=== PATIENT | female | born 1975 | race Caucasian/White ===

== ENCOUNTER → 2021-08-22 16:51 | Outpatient (BNVA) | payer MEDICAID, SELFPAY | PROVIDERS: Visit Provider Nurse Practitioner Family | DX: M25.511 Pain in right shoulder (principal) | CPT/HCPCS: 73030 ==

== ENCOUNTER 2021-09-25 15:19 | Outpatient (CLI) | payer MEDICAID, SELFPAY ==
--- NOTE | 2021-09-25 15:59 | MR_ITS ---
WS: [id number] MRI RIGHT SHOULDER HISTORY: ROTATOR CUFF SYNDROME, SHOULDER PAIN RIGHT COMPARISON: Radiograph 08/22/2021 TECHNIQUE: Multiplanar sequences of the shoulder joint are submitted. Mild AC joint arthritis. Joint space narrowing with small osteophytes from the distal clavicle and ad jacent acromion. There is also mild soft tissue hypertrophy. No subacromial or subdeltoid bursal flui d. There is very mild encroachment upon the supraspinatus muscle at the myotendinous insertion site. No os acromion. Biceps tendon is in normal position. Small subchondral cysts at the humeral head. Small insertion site tear of the anterior supraspinatus tendon. There is a additional moderate tendin opathy in the distal supraspinatus tendon. No retraction. No additional rotator cuff tears. No muscle atrophy or edema. Small osteophyte from the undersurface of the acromion causing mild subacromial im pingement directly over the superior humeral head. There is a defect at the base of the anterior supe rior labrum adjacent to the biceps tendon insertion site. Consistent with a labral tear. Additional d egenerative changes in the inferior labrum but no tear. Small osteophytes narrowing the inferior jose elias ohumeral joint space. There is increased soft tissue signal adjacent to the distal subscapularis tendon with narrowing of t he coracohumeral interval. Subscapularis tendon is thickened and there is increased T2 signal suggest ing at least a partial tear and adjacent tendinopathy. MR/MR shoulder RT wo con* [id number] IMPRESSION: 1. Small insertion site tear anterior supraspinatus tendon with no retraction. Additional moderate tendinopathy in the supraspinatus tendon. 2. Mild AC joint arthritis with mild encroachment upon the myotendinous insert ion of the supraspinatus. 3. Mild subacromial impingement. 4. Focal tear anterior superior labrum adjacent to the attachment of the bicep s tendon. 5. Increased soft tissue in the coracohumeral interval with thickening of the subscapularis tendon. Increased T2 signal in the distal tendon. Suspicious for distal subscapularis insertion site tear with additional marked tendinopathy.
== END 2021-09-25 15:20 | disposition home or self-care (01) ==
LOC: RAD 15:21
PROVIDERS: Visit Provider Nurse Practitioner Family
DX: M75.100 Unspecified rotator cuff tear or rupture of unspecified shoulder, not specified as traumatic (principal); M25.511 Pain in right shoulder
CPT/HCPCS: 73221

== ENCOUNTER 2022-10-28 20:18 | Inpatient (IN) | payer MEDICAID, SELFPAY ==
[2022-10-28 20:21] VITALS: BP 110/76; PULSE 106; RESP 16; TEMP 36.6; O2SAT 97; BMI 23.9
--- NOTE | 2022-10-28 20:50 | W.ED.PSYCHS ---
HPI - Psych General: Chief Complaint: Psychiatric Symptoms Stated Complaint: si Time Seen by Provider: 10/28/22 20:36 Source: patient and family (Son) Limitations: no limitations History of Present Illness: This 46-year-old female was brought in by EMS for evaluation because she was found wandering on the streets with her dog. On further questioning, patient tells me that she lives in [place] and was on her way to [place], on foot, to see her family. She was walking with her dog. When asked about her car, she said her car was at home and she did not have money for gas. She states that she has no history of psychiatric illness and is not taking any medications at this time. She does not have suicidal or homicidal thoughts. She has a son who lives in [place] and her ex- lives in [place]. I obtained her son's phone number and him to get more information. Son tells me that patient has been erratic patient for the last month and a half. Patient calls son the antichrist and believes that son's soul has been possessed by the devil. She claims that her ex- is the Satan. Son notes that patient has stated in the past, multiple times that she (the patient) will kill him. She has also made suicidal statements. Son recounts how patient stole his phone, his wallet and his car. They argued all the time and patient would always make statements that were tangential and hard for son to comprehend. It became too much for her son to bear, so son moved out of the house about a week ago. Son believes that patient is a safety to herself. Son states that because patient has DWI, she has a restricted license and cannot drive. Associated symptoms: Reports delusions; Deny homicidal ideation or suicidal ideation Review of Systems Const: Denies: chills, body aches or change in appetite Eyes: Denies: change in vision or eye discharge ENMT: Denies: throat pain or dental pain Card: Denies: chest pain or lightheadedness GI: Denies: diarrhea : Denies: dysuria Musc: Denies: neck pain or back pain Neuro: Denies: headache(s) or weakness in extremities Psych: Denies: suicidal ideation or homicidal ideation Kennedy/Lymph: Denies: easy bruising All/Imm: Denies: urticaria, tongue swelling or facial swelling Physical Exam Const: COMMON NORMALS: no acute distress, patient oriented x3, no limitations and alert HENMT: COMMON NORMALS: normocephalic HEAD & SCALP: normocephalic Eye: COMMON NORMALS: EOMs intact bilaterally Neck/C-Spine: COMMON NORMALS: full ROM and supple Chest: COMMONS NORMALS: normal inspection of the chest Resp: COMMON NORMALS: normal respiratory effort, No retractions, No use of accessory muscles and clear to auscultation bilaterally AUSCULTATION: clear to auscultation bilaterally Cardio: COMMON NORMALS: regular rate, regular rhythm and No murmurs present (Cardio) RATE: regular rate RHYTHM: regular rhythm GI: COMMON NORMALS: Normal to inspection, nondistended, normoactive bowel sounds present and non-tender : COMMON NORMALS: Yes no CVA tenderness BLADDER/KIDNEY EXAM: Yes no CVA tenderness Back/Pelvis: COMMON NORMALS: no CVA tenderness and no thoracic nor lumbar tenderness Extremity: GENERAL: Yes normal exam except as noted Neuro: COMMON NORMALS: patient oriented x3 and no focal motor deficits SENSORIUM/ORIENTATION: Yes alert Psych: COMMON NORMALS: cooperative THOUGHT PROCESS: Circumstantial thought process present THOUGHT CONTENT: Yes delusions INSIGHT: questionable Course Vital Signs: Vital signs: Vital Signs Temperature 97.9 F 10/28/22 20:21 Pulse Rate 106 H 10/28/22 20:21 Respiratory Rate 16 10/28/22 20:21 Blood Pressure 110/76 10/28/22 20:21 Pulse Oximetry 97 10/28/22 20:21 Oxygen Delivery Me thod Room Air 10/28/22 20:21 MDM - Psych Medical Decision Making Medical decision making: Though patient denies being suicidal or homicidal, she appears to have irrational reasoning that can potentially put her in harm's way. Thinking that she can walk from [place] to [place] to see her parents sounds unreasonable. Making claims that her son's soul is processed by satan and that her son is the antichrist is quite unusual. Son says she has been acting this way for about a month and a half. I believe that she would benefit from inpatient psychiatric evaluation and treatment. Case discussed with Dr. Chen who accepted patient for admission. Lab Data 10/28/22 21:32 10/28/22 21:32 Laboratory Results WBC 7.7 10^3/uL (4.0-10.0) 10/28/22 21:32 RBC 5.21 10^6/uL (4.1-5.3) 10/28/22 21:32 Hgb 15.2 g/dL (11.5-15.3) 10/28/22 21:32 Hct 45.0 % (37.0-47.0) 10/28/22 21: MCV 86.4 fl (81-99) 10/28/22 21:32 MCH 29.2 pg (28.0-34.0) 10/28/22 21: MCHC 33.8 g/dL (30.0-36.0) 10/28/22 21: RDW 11.7 % (12.1-15.1) L 10/28/22 21: Plt Count 220 10^3/cmm (130-400) 10/28/22 21: MPV 10.7 fL (7.4-10.4) H 10/28/22 21:32 Neut % (Auto) 66.8 % 10/28/22 21:32 Lymph % (Auto) 23.2 % 10/28/22 21:32 Lagrange % (Auto) 9.1 % 10/28/22 21: Eos % (Auto) 0.3 % 10/28/22 21: Baso % (Auto) 0.3 % 10/28/22 21:32 Neut # (Auto) 5.18 10^3/uL (1.8-7.7) 10/28/22 21:32 Lymph # (Auto) 1.8 10^3/uL (0.8-4.8) 10/28/22 21:32 [place] # (Auto) 0.7 10^3/uL (0.2-0.9) 10/28/22 21:32 Eos # (Auto) 0.0 10^3/uL (0.0-0.8) 10/28/22 21:32 Baso # (Auto) 0.0 10^3/uL (0.0-0.1) 10/28/22 21:32 Nucleated RBC % (auto) 0 % 10/28/22 21:32 Nucleated RBCs # 0.0 /100WBC 10/28/22 21:32 Sodium 140 mmol/L (136-145) 10/28/22 21:32 Potassium 3.8 mmol/L (3.5-5.1) 10/28/22 21:32 Chloride 104 mmol/L (98-107) 10/28/22 21:32 Carbon Dioxide 24 mmol/L (22-29) 10/28/22 21:32 Anion Gap 15.8 (5-19) 10/28/22 21:32 BUN 13 mg/dL (6-20) 10/28/22 21:32 Creatinine 0.8 mg/dL (0.5-0.9) 10/28/22 21:32 GFR Calculation 77.9 mL/min (90-130) L 10/28/22 21:32 Glucose 84 mg/dL (65-115) 10/28/22 21:32 Calculated Osmolality 289 mOsm/kg (285-295) 10/28/22 21:32 Calcium 9.1 mg/dL (8.5-10.5) 10/28/22 21:32 Total Bilirubin 0.7 mg/dL (0.15-1.2) 10/28/22 21:32 AST 35 U/L (0-32) H 10/28/22 21:32 ALT 49 U/L (0-33) H 10/28/22 21:32 Alkaline Phosphatase 85 U/L (35-105) 10/28/22 21:32 Total Protein 7.6 g/dL (6.6-8.7) 10/28/22 21:32 Albumin 4.6 g/dL (3.5-5.2) 10/28/22 21:32 Globulin 3.0 g/dL (1.3-4.6) 10/28/22 21:32 TSH 0.78 uIU/mL (0.27-4.20) 10/28/22 21:32 Salicylates < 0.3 mg/dL (3-10) L 10/28/22 21:32 Acetaminophen < 5.0 ug/mL (10-30) L 10/28/22 21:32 EKG Data EKG 1: Interpretation: Sinus rhythm, rate of 68, normal axis, normal intervals, normal QRS, no STEMI. Discharge Plan Discharge Condition: Stable Coding Level of Care Code ED Manager Chemistry for Meli Davidson
--- NOTE | 2022-10-28 21:13 | ECG_ITS ---
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 Measurements Intervals [place] Rate: 68 P: 50 DC: 127 QRS: 55 QRSD: 87 T: 38 QT: 417 QTc: 444 Interpretive Statements SINUS RHYTHM No previous ECG available for comparison Electronically Signed On 10-28-2022 23:08:55 CDT by Juni Chris M.D. [id number]
[2022-10-28 21:39] LABS: Basophils % 0.3 %; Eosinophils % 0.3 %; Hemoglobin 15.2 g/dL (11.5-15.3); Lymphocytes # 1.8 10^3/uL (0.8-4.8); Lymphocytes % 23.2 %; Mean Corpuscular HGB Conc 33.8 g/dL (30.0-36.0); Mean Corpuscular Hemoglobin 29.2 pg (28.0-34.0); Mean Corpuscular Volume 86.4 fl (81-99); Mean Platelet Volume 10.7 fL (7.4-10.4); Monocytes # 0.7 10^3/uL (0.2-0.9); Monocytes % 9.1 %; Neutrophils # 5.18 10^3/uL (1.8-7.7); Neutrophils % 66.8 %; Nucleated Red Blood Cells % 0 %; Platelet Count 220 10^3/cmm (130-400); Red Blood Count 5.21 10^6/uL (4.1-5.3); Red Cell Distribution Width 11.7 % (12.1-15.1); White Blood Count 7.7 10^3/uL (4.0-10.0)
[2022-10-28 22:01] LABS: Alanine Aminotransferase 49 U/L (0-33); Albumin Level 4.6 g/dL (3.5-5.2); Alkaline Phosphatase 85 U/L (35-105); Anion Gap 15.8 (5-19); Aspartate Amino Transferase 35 U/L (0-32); Blood Urea Nitrogen 13 mg/dL (6-20); Calcium 9.1 mg/dL (8.5-10.5); Carbon Dioxide 24 mmol/L (22-29); Chloride 104 mmol/L (98-107); Creatinine Clr Calc Pharmacy 79.2398; Glomerular Filtration Rate 77.9 mL/min (90-130); Glucose 84 mg/dL (65-115); Osmolality Calculated 289 mOsm/kg (285-295); Potassium 3.8 mmol/L (3.5-5.1); Sodium 140 mmol/L (136-145); Thyroid Stimulating Hormone 0.78 uIU/mL (0.27-4.20); Total Bilirubin 0.7 mg/dL (0.15-1.2); Total Protein 7.6 g/dL (6.6-8.7)
[2022-10-28 22:26] LABS: Acetaminophen < 5.0 ug/mL (10-30); Salicylate < 0.3 mg/dL (3-10)
[2022-10-28 23:02] LABS: Amphetamines Screen Urine Negative (Negative); Barbiturates Screen Urine Negative (Negative); Benzodiazepines Screen Urine Negative (Negative); Cocaine Screen Urine Negative (Negative); Opiate Screen Urine Negative (Negative); PCP Screen Urine Negative (Negative); THC Screen Urine Positive (Negative)
[2022-10-28 23:14] LABS: Blood Urine 3+ (Negative); Glucose Urine UA Norm (Normal); Ketones Urine 2+ (Negative); Protein Urine Trace (Negative); Urine Appearance Hazy (CLEAR); Urine Color Yellow (Yellow); pH Urine 5 (5-7)
[2022-10-28 23:15] LABS: Add Urine Microscopic? YES; Bilirubin Urine Neg (Negative); Leukocyte Esterase Urine Negative (Negative); Nitrate Urine Negative (Negative); Urobilinogen Urine Norm (Negative)
[2022-10-28 23:17] LABS: Bacteria Urine 1+ /hpf; WBC Urine 0-4 /hpf (0-5)
[2022-10-28 23:18] LABS: Mucus Urine 2+ /hpf
[2022-10-28 23:20] LABS: RBC Urine 25-40 /hpf (0-2)
--- NOTE | 2022-10-28 23:42 | PC.NURSE ---
Pt served with Copy of 96 HH. Pt not receptive to involuntary hold. Pt stating that she is not on a hold and has no reason to be here . Security staying with pt, admission to locked NPU expedited.
[2022-10-28 23:53] VITALS: BP 127/85; PULSE 94; RESP 18; TEMP 36.7; O2SAT 98
--- NOTE | 2022-10-29 00:28 | PC.NURSE ---
Pt arrived from ER w/sitter, security, and RN at side. Pt is calm and cooperative, states I don't know why I'm here they called my son, and he told them to 96 me . Pt denies ever using any drugs or alcohol, although tested positive for marijuana. Pt feed sandwhich per her request, given water and milk.
[2022-10-29 00:35] LABS: Alcohol Level < 10 mg/dL (0-10)
[2022-10-29 06:00] VITALS: BP 120/80; PULSE 78; RESP 16; TEMP 36.7; O2SAT 97
[2022-10-29 14:00] VITALS: BP 123/75; PULSE 91; RESP 16; TEMP 36.4; O2SAT 98
--- NOTE | 2022-10-29 16:32 | W.PM.NPUH&PS ---
Providers/Chief Complaint Admitting Physician: Kaleb Chen MD Chief Complaint: si HPI NPU History of Present Illness Marialuisa José is a 46 year old female with no prior history of inpatient treatment who had presented to the emergency department via EMS after the patient had been found wandering the streets accompanied by her dog. Patient had reported that she was on her way to [place] by foot to see her family. The patient was involuntarily hospitalized after an affidavit completed by the patient's son had stated that the patient had been having thoughts and expressed a belief that the patient's son was possessed by the devil and after the patient's son had stated that the patient was going to kill her ex-. The patient was admitted to the neuropsychiatric unit for further treatment and evaluation. The patient reports that she has been having increased problems with her thoughts beginning approximately 4 weeks ago as she stated that she felt like something clicked in her head where she started feeling different. The patient had expressed that she is not depressed and does not have thoughts of hurting herself or anyone else. She states that she had been stressed by having her demented father move into her home and had expressed that she was unable to manage his care and that she had been extremely stressed. She had reported having had a feeling in her mind that her son may have been engaged in unholy acts towards her. She had acknowledged that she had often called her ex- Kiesha but stated that she was merely joking. She did state that she had been increasingly suspicious about others but states that she is feeling better and here. She had denied any auditory or visual hallucinations. She had reported having some problems with concentration and states that she had not been taking care of herself very well. When asked about why she had to walk her dog on the highway, the patient was unable to provide a reasonable answer. She did acknowledge that her son had moved outside of the house despite living there as he had also grown tired of the patient's behavior. She had denied any ideas of reference and did not endorse feeling unsafe while on the inpatient unit. The patient was positive for marijuana on urine testing in the emergency department. She had expressed that she had not used marijuana but states that she may have been exposed to it. Past psychiatric history: None reported Allergies: Penicillin, sulfa drugs Medical history: None Surgical history: History of right shoulder repair, history of tonsillectomy Current medications: None Drug and alcohol history: She reported a past history of alcohol use but states that she is not a routine drinker with no history of alcohol withdrawal symptoms. She denied any other drug use at this time. Family psychiatric history: Alcoholism in the father. history: None Social history: The patient lives in [place]. She had been 1 time before in the past. She states that she was born in [facility] and that she had lost her mother when she was only 11 years old. She states that she had been forced to live in a foster home as her father had not been able to take care of her. 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 She had reported no history of trauma. She reported having a recent deep URI for driving under the influence of alcohol. She states having only 1 son who currently lives in the house. Meds NPU Home Medications Medication Instructions Recorded Confirmed Last Taken Type No Known Home Medications 10/29/22 10/29/22 Unknown History Allergies Allergy/AdvReac Type Severity Reaction Status Date / Time Penicillins Allergy ALGY-Rash Verified 10/28/22 20:21 Sulfa (Sulfonamide Allergy ALGY-Rash Verified 10/28/22 20:21 Antibiotics) Mental Status Exam MSE Comments: Patient appears older than her stated age she was sitting in bed in no acute distress. Her gait was within normal limits. Her hygiene was poor. There was no evidence of any abnormal involuntary motor movements tics or tremors appreciated. There was some evidence of mild psychomotor retardation. Her speech speech was monotone and quality normal in volume but slightly diminished in rate. Her thought process was linear logical and goal-directed. Her thought content showed no evidence of active homicidal or suicidal ideation. There was some lingering paranoia although she attempted to minimize it she is still felt concerned about the devil somehow influencing her son. There did appear to be some overvalued ideas. Her registration was 3 out of 3 words and 2 out of 3 words were recalled after 5 minutes. She was alert and oriented to person place time and situation. Her attention span appeared fair. She did appear engaged during the interview. Her insight appeared poor her judgment was poor. Her impulse control appeared limited at this time. Vitals/I&O/Wt Last Vital Signs Temp 97.6 F 10/29/22 14:00 Pulse 91 10/29/22 14:00 Resp 16 10/29/22 14:00 BP 123/75 10/29/22 14:00 Pulse Ox 98 10/29/22 14:00 O2 Del Method Room Air 10/29/22 14:00 Weight last 48 hrs Weight 61.235 kg Data NPU 10/28/22 21:32 10/28/22 21:32 A&P Assessment and plan (1) Psychotic disorder: Plan Patient is a 46-year-old admitted with psychotic symptoms with no prior history but reporting increased stressors over past month with management of demented father. 1.? ? Engage? patient in individual ,milieu, and group therapy ?2. ? We will attempt to gather collateral information from previous providers, patient remains on 96 hour hold and refusing any medications at this time. ?3. ? TO-15 minute checks on the unit. ?4.? Recommend sober living treatment at the highest level of care to which the patient is willing to commit. Involuntary Hold Information 96 Hour Hold: 96 Hour Involuntary Admission: Yes 96 Hour Hold Ending Date: 11/02/22 96 Hour Hold Ending Time: 00:01 Attestations NPU Medical Necessity Statement*: Inpatient hospitalization is medically necessary and deemed to be the clinically appropriate intervention at this time. We will monitor initiate medications while making changes as indicated. She will be in the hospital for over 2 midnights. The patient's likely length of stay is 3 to 5 days. Coding Level of Care Code Acute Code for g Fwd Diagnoses Psychotic disorder F29
[2022-10-29 20:45] VITALS: BP 117/78; PULSE 89; RESP 16; TEMP 36.9; O2SAT 96
[2022-10-30 06:00] VITALS: BP 124/79; PULSE 85; RESP 20; TEMP 36.8; O2SAT 97
--- NOTE | 2022-10-30 12:01 | PC.NURSE ---
verbal instruction for patient to she is not allowed to gointo another patients room. pt did not respond.
[2022-10-30 13:35] VITALS: BP 119/81; PULSE 86; RESP 20; TEMP 36.4; O2SAT 98
[2022-10-30 15:24] VITALS: BP 119/81; PULSE 86; RESP 20; TEMP 36.4; O2SAT 98
--- NOTE | 2022-10-30 18:58 | P.NPUPN_ITS ---
Subjective NPU Subjective: Patient is a 46-year-old female admitted involuntarily for psychotic behavior with reports of delusions. The patient had reported that she was feeling better here and stated that she was simply waiting to go home. Staff notes patient appeared to have some unusual behavior where she apparently had gone into the wrong room and had stolen another person's objects and placed in her own room. She stated when asked about this that she knew what she was doing but did not elaborate. She had continued to be unable to explain her actions regarding the patient's admission and walking along a dangerous road with her dog. She had reported that it was due to stress from managing her father but stated that she was doing fine here. Mental Status Exam MSE Comments: Patient appears older than her stated age she was sitting in bed in no acute distress. She appeared superficial and vague regarding her current state of mind. Her gait was within normal limits. Her hygiene was poor. There was no evidence of any abnormal involuntary motor movements tics or tremors appreciated. There was some evidence of mild psychomotor retardation. Her speech was monotone and quality normal in volume but slightly diminished in rate. Her thought process was linear logical but superficial.. Her thought c ontent showed no evidence of active homicidal or suicidal ideation. There was some continued paranoia and a significant level of guardedness. There did appear to be some overvalued ideas. Recent and remote memory appeared grossly intact. She was alert and oriented to person place time and situation. Her attention span appeared fair. Her insight appeared poor her judgment was poor. Her impulse control appeared limited at this time. Vitals/I&O/Wt Last Vital Signs Temp 97.5 F L 10/30/22 15:24 Pulse 86 10/30/22 15:24 Resp 20 H 10/30/22 15:24 BP 119/81 10/30/22 15:24 Pulse Ox 98 10/30/22 15:24 O2 Del Method Room Air 10/30/22 13:35 Weight last 48 hrs Weight 61.235 kg Data NPU 10/28/22 21:32 10/28/22 21:32 A&P Assessment and plan (1) Psychotic disorder: Plan Patient is a 46-year-old admitted with psychotic symptoms with no prior history but reporting increased stressors over past month with management of demented father. 1.? ? Engage? patient in individual ,milieu, and group therapy ?2. ? We will attempt to gather collateral information from previous providers, patient remains on 96 hour hold and refusing any medications at this time. She may require forced medications as she appears psychotic at this time. ?3. ? TO-15 minute checks on the unit. ?4.? Recommend sober living treatment at the highest level of care to which the patient is willing to commit. Involuntary Hold Information 96 Hour Hold: 96 Hour Involuntary Admission: Yes 96 Hour Hold Ending Date: 11/02/22 96 Hour Hold Ending Time: 00:01 Attestations NPU Medical Necessity Statement*: Inpatient hospitalization is medically necessary and deemed to be the clinically appropriate intervention at this time. We will monitor initiate medications while making changes as indicated. The patient's likely length of stay is 3 to 5 days. Coding Level of Care Code Acute Code for [facility] Fwd Diagnoses Psychotic disorder F29
[2022-10-31 06:00] VITALS: BP 107/60; PULSE 69; RESP 16; TEMP 36.8; O2SAT 98
[2022-10-31 14:00] VITALS: BP 114/84; PULSE 96; RESP 16; TEMP 36.8; O2SAT 98
--- NOTE | 2022-10-31 17:39 | P.NPUPN_ITS ---
Subjective NPU Subjective: Patient is a 46-year-old female admitted involuntarily for psychotic behavior including bizarre delusions. The patient had a examination to determine ability to live independently and scored 2 out of 13 with significant deficiencies found and recommendation for the patient to require 24-hour care. She continued to isolate herself in the milieu. She had stated that she was ready to go home and was refusing medications. She had stated that she had been upset today because she had tried to contact her son and he had refused her calls. She stated that she feels as if she is being influenced by something. She states that it is of a supernatural nature and described having seen a violin in the home and a guitar and reported that the guitar was not just a musical instrument but an in strument of destruction. Mental Status Exam 2 MSE Comments: Patient appears older than her stated age she was sitting in bed in no acute distress. She appeared superficial and vague regarding her current state of mind. Her gait was within normal limits. Her hygiene was poor. There was no evidence of any abnormal involuntary motor movements tics or tremors appreciated. There was some evidence of mild psychomotor retardation. Her speech was monotone and quality normal in volume but slightly diminished in rate. Her thought process was linear logical but superficial.. Her thought content showed no evidence of active homicidal or suicidal ideation. There was significant paranoia and she remained vague with clear overt delusions of a bizarre nature noted. There did appear to be some overvalued ideas. Recent and remote memory appeared grossly intact. She was alert and oriented to person place time but not reason for being here. Her attention span appeared fair. Her insight was poor. Her judgment was poor. Her impulse control appeared limited at this time. Vitals/I&O/Wt Last Vital Signs Temp 98.2 F 10/31/22 14:00 Pulse 96 10/31/22 14:00 Resp 16 10/31/22 14:00 BP 114/84 10/31/22 14:00 Pulse Ox 98 10/31/22 14:00 O2 Del Method Room Air 10/31/22 06:00 Data NPU 10/28/22 21:32 10/28/22 21:32 A&P Assessment and plan (1) Psychotic disorder: Plan Patient is a 46-year-old admitted with psychotic symptoms with no prior history but reporting increased stressors over past month with management of demented father. 1.? ? Engage? patient in individual ,milieu, and group therapy ?2. ? We will attempt to gather collateral information from previous providers, patient remains on 96 hour hold and refusing any medications at this time. She may require forced medications as she appears psychotic at this time. ?3. ? TO-15 minute checks on the unit. ?4.? Recommend sober living treatment at the highest level of care to which the patient is willing to commit. Involuntary Hold Information 96 Hour Hold: 96 Hour Involuntary Admission: Yes 96 Hour Hold Ending Date: 11/02/22 96 Hour Hold Ending Time: 00:01 Attestations NPU Medical Necessity Statement*: Inpatient hospitalization is medically necessary and deemed to be the clinically appropriate intervention at this time. We will monitor initiate medications while making changes as indicated. The patient's likely length of stay is 5-8 days. Coding Level of Care Code Acute Code for [facility] Fwd Diagnoses Psychotic disorder F29
[2022-10-31 18:26] LABS: Add Urine Microscopic? NO; Charge for UA Resulting for Rev
[2022-10-31 18:38] LABS: Bilirubin Urine Neg (Negative); Blood Urine Neg (Negative); Glucose Urine UA Norm (Normal); Ketones Urine Negative (Negative); Leukocyte Esterase Urine Negative (Negative); Nitrate Urine Negative (Negative); Protein Urine Neg (Negative); Urine Appearance Clear (CLEAR); Urine Color Yellow (Yellow); Urobilinogen Urine Norm (Negative); pH Urine 6 (5-7)
[2022-10-31 22:00] VITALS: RESP 15
--- NOTE | 2022-11-01 05:46 | PC.NURSE ---
Patient has not slept at all last night. During one of the q15 checks, it was noted that she had torn up her mesh panties & tied them around her feet stating I wanted something on my feet , she has also closed her door multiple times, staff has redirected her & given her mission coordinator socks. She has been hallucinating all night, pushing the emergency button in her room stating someone told her to push it . She has been talking to herself throughout the night & threw the socks into the hallway. She is now covered in her blanket & sitting on her nightstand.
[2022-11-01 14:00] VITALS: BP 112/78; PULSE 83; RESP 16; TEMP 36.6; O2SAT 97
--- NOTE | 2022-11-01 16:08 | PC.NURSE ---
Pt requested medication for constipation, Milk of Mag was offered, pt refused to take the medication at the nurses station, pt wanted to take the med in her room and when asked to please take the med in front of the nurse. Pt decided to refuse the med.
--- NOTE | 2022-11-01 17:21 | P.NPUPN_ITS ---
Subjective NPU Subjective: Patient is a 46-year-old female admitted involuntarily for psychotic behavior including bizarre delusions. Patient had shown evidence of bizarre behavior on the unit. She had taken off her underwear and had broken them off and attempted to make socks out of them as she had refused to wear the socks provided to her on the milieu. She had continued to appear paranoid and confused. She con tinued to state that something evil had been going on in her home and related it to a guitar that she had placed in her car. She had endorsed that she had a feeling that she could read other people's thoughts. She reported that she had been worried about these problems of a spiritual nature for a few months. Mental Status Exam MSE Comments: Patient appears older than her stated age she was sitting in bed in no acute distress. She appeared guarded on interview and quite anxious today. Her gait was within normal limits. Her hygiene was poor. There was no evidence of any abnormal involuntary motor movements tics or tremors appreciated. There was no evidence of psychomotor retardation. Her speech was monotone in quality, normal in volume and decreased in rate. Her thought process was linear, logical, but superficial. Her thought content showed no evidence of active homicidal or suicidal ideation. There was significant paranoia and she remained vague with clear overt delusions of a bizarre nature noted. There did appear to be some overvalued ideas. Recent,and remote memory appeared grossly intact. She was alert and oriented to person place time but not reason for being here. Her attention span appeared fair. Her insight was poor. Her judgment was poor. Her impulse control appeared limited at this time. Vitals/I&O/Wt Last Vital Signs Temp 97.8 F 11/01/22 14:00 Pulse 83 11/01/22 14:00 Resp 16 11/01/22 14:00 BP 112/78 11/01/22 14:00 Pulse Ox 97 11/01/22 14:00 O2 Del Method Room Air 11/01/22 14:00 Data NPU 10/28/22 21:32 10/28/22 21:32 A&P Assessment and plan (1) Psychotic disorder: Plan Patient is a 46-year-old admitted with psychotic symptoms with no prior history but reporting increased stressors over past month with management of demented father. 1.? ? Engage? patient in individual ,milieu, and group therapy ?2. ? We will attempt to gather collateral information from previous providers, patient remains on 96 hour hold , she was agreeable to trial of Invega 3mg at night. ?3. ? TO-15 minute checks on the unit. ?4.? Recommend sober living treatment at the highest level of care to which the patient is willing to commit. Involuntary Hold Information 96 Hour Hold: 96 Hour Involuntary Admission: Yes 96 Hour Hold Ending Date: 11/02/22 96 Hour Hold Ending Time: 00:01 Attestations NPU Medical Necessity Statement*: Inpatient hospitalization is medically necessary and deemed to be the clinically appropriate intervention at this time. We will monitor initiate medications while making changes as indicated. The patient's likely length of stay is 5-8 days. Coding Level of Care Code Acute Code for Chg Fwd Diagnoses Psychotic disorder F29
[2022-11-01 22:00] VITALS: BP 116/68; PULSE 103; RESP 15; O2SAT 98
--- NOTE | 2022-11-01 22:22 | PC.NURSE ---
Addendum entered by Jim Forrest RN 11/02/22 03:06: Patient was in room speaking into a foam cup as if it was a phone and having a conversation with herself. Patient then placed the foam cup on top of her head. Staff asked patient if she was ok and patient stated that she was and then continued her conversation into the cup. Addendum entered by Jim Forrest RN 11/02/22 02:50: Upon q15 check, patient is singing & pretending she is [place]. She has not slept at all tonight or last night. She is responding to internal stimuli & disrupting her roommate. Original Note: At approximately 2100, patient started whistling in her room & disrupted the entire hallway, waking patients up & getting them agitated. Patient was asked multiple times to please stop, she continued & got louder, then started flapping her hands like a bird with eyes closed. PRN medication was offered, patient refused. Patient eventually woke a patient across the bhandari up who started yelling at staff & causing a scene at the RN desk.
[2022-11-02] MEDS: diphenhydrAMINE 50 mg/mL SDV 1mL IM (06:17)
[2022-11-02] MEDS: haloperidol inj 5 mg/mL INJ 1 mL IM (06:17)
--- NOTE | 2022-11-02 07:50 | PC.NURSE ---
Patient required a Code 10 this morning. This director underwriter sales was notified by Jim Forrest RN after the occurrence. Pt was placed in hold restraint by staff while IM injection was given. One hour face to face was completed by the director underwriter sales after speaking with Dr. Chen at 0717 Events that lead up to restraint hold- Demonstrating self-destructive behavior (attempted to lock herself in pt room by pushing the bed in front of the door) Evaluation of patients immediate situation- No signs of physical distress, Resting in bed, No signs of psychological distress Patient reaction since intervention applied- De-escalation/no displays of violent/destructive behavior Recent Labs viewed- N/A Review of medication- Yes (with Dr. Chen over the phone) Need for restraint or seclusion is- No longer present Attending notified- Yes Patient is now resting in bed quietly, one to one is not needed at this time.
--- NOTE | 2022-11-02 07:56 | PC.NURSE ---
At approximately 06:05 pt was observed on camera kicking her blanket and towel out the bedroom door. The pt was then observed to be doing weird movements in the entryway of her bedroom. Staff went out into the hallway to ask the pt to pick pulling machine tender her blanket and towel to take them to the dirty clothes barrel, the pt would not respond to staff but instead continue her movements and murmur to herself. Staff continued to attempt multiple times to ask the pt to pick pulling machine tender her blanket and towel in which at one instance the pt kicked them further across the bhandari. The pt then went back into her room and started to close the door, when staff told her she could not close the door all the way, the pt started to lean against the door to hold it shut and then blocked the door with the other pts bed while the other pt was still in it. A code 10 was called and IM medications were drawn up. Security and staff talked to pt and asked pt to lay on bed for the IM injections. Two security guards, one on each side, held the pts arms down while the RN and OSTRICH FARMER administered the IM injections. Pt was given 5mg Haldol in right deltoid and 50mg Benadryl in the left deltoid. Pt tolerated the injections well and was continued to be monitored after the injections.
--- NOTE | 2022-11-02 12:22 | PC.NURSE ---
Attempted to administer morning medications to patient. She started to take the medication cup but then backed away quickly saying, no, nope, no. This RN asked her what was concerning her and she stated, I'm not taking medications, I'm fine. This RN educated the patient on the benefits of Invega, but she continued to state that she did not need them because she was fine.
[2022-11-02 14:00] VITALS: BP 101/68; PULSE 83; RESP 18; TEMP 36.5; O2SAT 97
--- NOTE | 2022-11-02 15:59 | P.NPUPN_ITS ---
Subjective NPU Subjective: Patient is a 46-year-old female admitted involuntarily for psychotic behavior including bizarre delusions. Patient had shown continued evidence of bizarre behavior on the unit. She had required restraint after she had a apparently barricaded the room with a mattress while the patient's roommate was apparently caught between the mattress and the door. She stated that she had felt like she needed to do that as if someone were telling her to do that. She had initially rejected her medications this morning. But was later able to take her Invega. She had stated that she had contacted her son who had stated to her that it would likely be a good idea to remain in the hospital. She had continued to isolate herself on the milieu. She had minimal contact with others. She had continued to report that she felt that there was something evil that was affecting her and her family members and that she needed to stop it. Mental Status Exam MSE Comments: Patient appears older than her stated age she was sitting in bed in mild to moderate distress. She remains somewhat guarded on interview with poor eye contact. Her gait was within normal limits. Her hygiene was poor. There was no evidence of any abnormal involuntary motor movements tics or tremors appreciated. There was evidence of psychomotor retardation. Her speech was monotone in quality, normal in volume and decreased in rate. Her thought process was linear, logical, but superficial. Her thought content showed no joel dence of active homicidal or suicidal ideation. There was significant paranoia and she continued to report an insidious plot that was occurring involving a musical instrument. She had reported ideas of being controlled by some force. There did appear to be some overvalued ideas. Recent,and remote memory appeared grossly intact. She was alert and oriented to person place time but not reason for being here. Her attention span appeared fair. Her insight was poor. Her judgment was poor. Her impulse control appeared limited at this time. Vitals/I&O/Wt Last Vital Signs Temp 97.7 F 11/02/22 14:00 Pulse 83 11/02/22 14:00 Resp 18 11/02/22 14:00 BP 101/68 11/02/22 14:00 Pulse Ox 97 11/02/22 14:00 O2 Del Method Room Air 11/01/22 22:00 Data NPU 10/28/22 21:32 10/28/22 21:32 A&P Assessment and plan (1) Psychotic disorder: Plan Patient is a 46-year-old admitted with psychotic symptoms with no prior history but reporting increased stressors over past month with management of demented father. 1.? ?Engage? patient in individual ,milieu, and group therapy ?2. ? We will attempt to gather collateral information from previous providers, patient remains on 96 hour hold, extended 21 day hold request filed with court hearing [place]. She was agreeable to trial of Invega 3mg at night. ?3. ? TO-15 minute checks on the unit. ?4.? Recommend sober living treatment at the highest level of care to which the patient is willing to commit. Involuntary Hold Information 96 Hour Hold: 96 Hour Involuntary Admission: Yes 96 Hour Hold Ending Date: 11/02/22 96 Hour Hold Ending Time: 00:01 Attestations NPU Medical Necessity Statement*: Inpatient hospitalization is medically necessary and deemed to be the clinically appropriate intervention at this time. We will monitor initiate medications while making changes as indicated. The patient's likely length of stay is 5-8 days. Coding Level of Care Code Acute Code for Chg Fwd Diagnoses Psychotic disorder F29
[2022-11-02 21:39] VITALS: BP 106/67; PULSE 73; RESP 16; TEMP 36.6
[2022-11-03] MEDS: hyDROXYzine 25 mg Capsule 50 MG PO (00:45)
[2022-11-03] MEDS: OLANZapine 5 mg ODT PO (00:45)
--- NOTE | 2022-11-03 00:49 | PC.NURSE ---
Patient has been restless most of the shift. She attempted to use the phone & was crying, I explained that it was in the middle of the night so the phones aren't on until 0700. She said she was calling to tell him she loves him no matter what. I asked if I could get her some medication to help with her anxiety, she was agreeable. Vistaril 50mg & Zydis 5mg given PO. The patient then went back to her bedroom.
[2022-11-03 05:33] VITALS: BP 100/67; PULSE 76; RESP 18; TEMP 36.6
[2022-11-03] MEDS: paliperidone ER 3 mg Tablet PO (08:29)
--- NOTE | 2022-11-03 13:21 | P.NPUPN_ITS ---
Subjective NPU Subjective: Patient is a 46-year-old female admitted involuntarily for psychotic behavior including bizarre delusions. Patient had reported having worries about the future. She continued to report that she felt that her son was in danger. She reported that there was something that had been sinister in the house that was mast in the form of a musical instrument and stated that this had been removed b y her but she continued to report receiving messages from her father stating that she needed to be wary of the evil. She had reported that her son had been possessed by the devil. She had reported that she was feeling better today. She did not engage in any abnormal or bizarre behavior but continued to isolate herself with almost no contact with other peers noted. She had eaten on the unit. She reported no thoughts of hurting herself or others at this time. Mental Status Exam MSE Comments: Patient appears older than her stated age she was sitting in bed in mild to moderate distress. She appeared to be staring at a wall and initially appeared confused. She had fleeting eye contact. Her speech was monotone and quality with normal rate and volume. She did at times appear to be responding to internal stimuli. Her mood was described as stressed. Her affect was odd and subdued. Thought content: There was evidence of ideas of reference along with bizarre delusions. She minimized any homicidal or suicidal ideation. Her thought process was linear but superficial. Her insight was poor. Her judgment was poor. Her impulse control appeared limited at this time. Vitals/I&O/Wt Last Vital Signs Temp 97.8 F 11/03/22 05:33 Pulse 76 11/03/22 05:33 Resp 18 11/03/22 05:33 BP 100/67 11/03/22 05:33 Pulse Ox 97 11/02/22 14:00 O2 Del Method Room Air 11/01/22 22:00 Data NPU 10/28/22 21:32 10/28/22 21:32 A&P Assessment and plan (1) Psychotic disorder: Plan Patient is a 46-year-old admitted with psychotic symptoms with no prior history but reporting increased stressors over past month with management of demented father. 1.? ?Engage? patient in individual ,milieu, and group therapy ?2. ? We will attempt to gather collateral information from previous providers, patient remains on 96 hour hold, extended 21 day hold request filed with court hearing on 11/05/2022.. She was agreeable to increase in Invega 6mg daily. ?3. ? TO-15 minute checks on the unit. ?4.? Recommend sober living treatment at the highest level of care to which the patient is willing to commit. Involuntary Hold Information 96 Hour Hold: 96 Hour Involuntary Admission: Yes 96 Hour Hold Ending Date: 11/02/22 96 Hour Hold Ending Time: 00:01 Attestations NPU Medical Necessity Statement*: Inpatient hospitalization is medically necessary and deemed to be the clinically appropriate intervention at this time. We will monitor initiate medications wh ile making changes as indicated. The patient's likely length of stay is 5-8 days. Coding Level of Care Code Acute Code for Chg Fwd Diagnoses Psychotic disorder F29
[2022-11-03 14:00] VITALS: BP 109/64; PULSE 98; RESP 16; TEMP 36.9; O2SAT 96
[2022-11-03] MEDS: neomycin-poly-bacitracin oint 28 gm 1 APPLIC TOPICAL (20:05)
[2022-11-03 20:35] VITALS: BP 111/78; PULSE 102; RESP 18; TEMP 37.5; O2SAT 95
[2022-11-04 05:44] VITALS: BP 96/55; PULSE 91; RESP 16; TEMP 36.5; O2SAT 97
[2022-11-04] MEDS: paliperidone ER 6 mg Tablet PO (08:43)
[2022-11-04 11:04] LABS: Glucose Point of Care 99 mg/dL (70-110)
--- NOTE | 2022-11-04 11:43 | PC.NURSE ---
PT COMPLAINED OF DIZZINESS, LIGHTHEADEDNESS, AND BEING HOT. PT STATES THAT IT BEGAN AFTER TAKING HER ORAL INVEGA THIS MORNING. PT VITALS SIGNS AND BLOOD SUGAR WERE TAKEN AND ARE FOLLOWS BP:119/70 PULSE:89 TEMP:97.1 ORALLY SPO2:97% RESP:18 BLOOD SUGAR 99 PT WAS GIVEN A COOL WASH CLOTH AND ASSISTED TO HER ROOM TO REST. NOTIFIED NO CURRENT CHANGES. WILL CONTINUE O MONITOR
[2022-11-04 11:47] VITALS: BP 119/79; PULSE 89; RESP 18; TEMP 36.2; O2SAT 97
--- NOTE | 2022-11-04 13:28 | W.PM.NPUPNS ---
Subjective NPU Subjective: Patient is a 46-year-old female admitted involuntarily for psychotic behavior including bizarre delusions. The patient had reported considerable side effects from her medication as she had stated that she felt dizzy and lightheaded. She had also reported having difficulties with urinary retention she stated that she had an urge to urinate but had been unable to. She reported that she had continued concerns about something evil being present in her home and having taken over her son. She reported that she did not feel that she needed to take any medications and reported that she was feeling better. She had continued to endorse having specific feelings that people around her were sending her messages that something sinister was in her home. Staff notes patient had isolated herself in on the milieu. She did not engage in any unusual behaviors. Mental Status Exam MSE Comments: Patient appears older than her stated age she was sitting in bed in mild distress. There was no evidence of any abnormal involuntary motor movements tics or tremors appreciated. There was evidence of psychomotor retardation. She had fleeting eye contact. Her speech was monotone in quality with normal rate and normal volume. She did at times appear to be responding to internal stimuli. Her mood was described as better. Her affect was odd and subdued. Thought content: There was evidence of ideas of reference along with bizarre delusions. She minimized any homicidal or suicidal ideation. Her thought process was linear but superficial. Her insight was poor. Her judgment was poor. Her impulse control appeared limited at this time. Vitals/I&O/Wt Last Vital Signs Temp 97.1 F L 11/04/22 11:47 Pulse 89 11/04/22 11:47 Resp 18 11/04/22 11:47 BP 119/79 11/04/22 11:47 Pulse Ox 97 11/04/22 11:47 O2 Del Method Room Air 11/04/22 11:47 Weight last 48 hrs Weight 59.421 kg Data NPU 10/28/22 21:32 10/28/22 21:32 A&P Assessment and plan (1) Psychotic disorder: Plan Patient is a 46-year-old admitted with psychotic symptoms with no prior history but reporting increased stressors over past month with management of demented father. 1.? ?Engage? patient in individual ,milieu, and group therapy ?2. ? We will attempt to gather collateral information from previous providers, patient remains on 96 hour hold, extended 21 day hold request filed with court hearing on 11/05/2022.. Discontinue Invega due to side effects. Will begin Abilify 5mg tommorow in am. ?3. ? TO-15 minute checks on the unit. ?4.? Recommend sober living treatment at the highest level of care to which the patient is willing to commit. Involuntary Hold Information 96 Hour Hold: 96 Hour Involuntary Admission: Yes 96 Hour Hold Ending Date: 11/02/22 96 Hour Hold Ending Time: 00:01 Attestations NPU Medical Necessity Statement*: Inpatient hospitalization is medically necessary and deemed to be the clinically appropriate intervention at this time. We will monitor initiate medications while making changes as indicated. The patient's likely length of stay is 5-8 days. Coding Level of Care Code Acute Code for Chg Fwd Diagnoses Psychotic disorder F29
[2022-11-04 14:00] VITALS: BP 111/67; PULSE 98; RESP 16; TEMP 36.9; O2SAT 97
[2022-11-04 21:02] VITALS: BP 111/58; PULSE 92; RESP 18; TEMP 36.7; O2SAT 99
[2022-11-05 06:00] VITALS: BP 111/71; PULSE 96; RESP 18; TEMP 36.6; O2SAT 97
[2022-11-05 13:19] VITALS: BP 103/67; PULSE 100; RESP 17; TEMP 36.9; O2SAT 97
--- NOTE | 2022-11-05 14:52 | PC.NURSE ---
OFF UNIT FOR [address]
--- NOTE | 2022-11-05 14:54 | PC.NURSE ---
1440-Patient off unit for court hearing
--- NOTE | 2022-11-05 15:33 | PC.NURSE ---
RETURN TO UNIT FROM COURT
--- NOTE | 2022-11-05 16:27 | PC.NURSE ---
[address]; now on unit
--- NOTE | 2022-11-05 17:44 | P.NPUPN_ITS ---
Subjective NPU Subjective: Patient is a 46-year-old female admitted involuntarily for psychotic behavior including bizarre delusions. No lightheadedness and no urinary retention with the discontinuation of Invega. She was placed involuntarily for up to [address] She had continued to isolate herself on the milieu and continued to report concern about something insidious going on in her home. She is unable to reported that at times she felt that she could redirect those thoughts and stated that she had a feeling that others around her were trying to communicate something to her. She continued to report feeling anxious and stated that her son had supported that she will be here at this time. Mental Status Exam MSE Comments: Patient appears older than her stated age she was sitting in bed in mild distress. There was no evidence of any abnormal involuntary motor movements tics or tremors appreciated. There was evidence of moderate psychomotor retardation. She had poor eye contact and poor hygiene. Her speech was monotone in quality with normal rate and normal volume. She did at times appear to be responding to internal stimuli. Her mood was described as better. Her affect was odd and subdued. Thought content: There was evidence of ideas of reference along with bizarre delusions. She minimized any homicidal or suicidal ideation. Her thought process was linear but superficial. Her insight was poor. Her judgment was poor. Her impulse control appeared limited at this ti me. Vitals/I&O/Wt Last Vital Signs Temp 98.4 F 11/05/22 13:19 Pulse 100 11/05/22 13:19 Resp 17 11/05/22 13:19 BP 103/67 11/05/22 13:19 Pulse Ox 97 11/05/22 13:19 O2 Del Method Room Air 11/04/22 14:00 Weight last 48 hrs Weight 59.421 kg Data NPU 10/28/22 21:32 10/28/22 21:32 A&P Assessment and plan (1) Psychotic disorder: Plan Patient is a 46-year-old admitted with psychotic symptoms with no prior history but reporting increased stressors over past month with management of demented father. 1.? ?Engage? patient in individual ,milieu, and group therapy ?2. ? Start Abilify 5mg daily to target psychosis. ?3. ? TO-15 minute checks on the unit. Patient now on 21 day hold. ?4.? Recommend sober living treatment at the highest level of care to which the patient is willing to commit. Involuntary Hold Information 96 Hour Hold: 96 Hour Involuntary Admission: Yes 96 Hour Hold Ending Date: 11/02/22 96 Hour Hold Ending Time: 00:01 Attestations NPU Medical Necessity Statement*: Inpatient hospitalization is medically necessary and deemed to be the clinically appropriate intervention at this time. We will monitor initiate medications while making changes as indicated. The patient's likely length of stay is 5-8 days. Coding Level of Care Code Acute Code for Chg Fwd Diagnoses Psychotic disorder F29
[2022-11-05] MEDS: ARIPiprazole 10 mg Tablet 5 MG PO (18:22)
[2022-11-05 21:06] VITALS: BP 99/50; PULSE 104; RESP 16; TEMP 36.7; O2SAT 98
[2022-11-06 06:00] VITALS: BP 101/65; PULSE 92; RESP 18; TEMP 36.6; O2SAT 97
[2022-11-06] MEDS: ARIPiprazole 10 mg Tablet 5 MG PO (08:15)
--- NOTE | 2022-11-06 08:30 | PC.NURSE ---
PT CURRENTLY DENIES SI/HI/AH/VH. DURING MEDICATION ADMINISTRATION PT ASKED THIS NURSE DO I HAVE TO TAKE THIS MEDICATION? THIS NURSE REPLIED WITH THE DOCTOR SWITCHED YOUR MEDICATION SO IT WILL NOT MAKE YOU FEEL LIKE YOU DID BEFORE. PT THEN REPEATED THE QUESTIONS. THIS NURSE EDUCATED THE PT ABOUT THE NEW MEDICAITON AND IMPORTANCE OF TAKING IT. PT THEN DECIDED TO TAKE THE MEDICATION. PT PLACED PILL IN HER MOUTH AND SWALLOWED. PT WAS THEN ASKED TO SHOW THIS NURSE THAT SHE SWALLOWED HER PILLS. PT LIFTED HER HEAD TO WHERE SHE WAS LOOKING AT THE CEILING. TO AVOID NURSE SEEING THAT SHE HAD NOT SWALLOWED THE PILL. THIS NURSE VISUALIZED THE MEDICATION AND STATED TO THE PT THAT SHE DID NEED TO SWALLOW THE PILL. PT THE STATED I WAS WAITING FOR IT TO DISSOLVE. PT WAS EDUCATED THAT THIS MEDICATION IS TO BE SWALLOWED NOT DISSOLVED. PT THEN TOOK ANOTHER DRINK OF WATER. THIS NURSE ASKED FOR VERIFICATION THAT THE PILL HAD BEEN SWALLOWED AGAIN. AT THIS TIME THE PT WAS WILLING TO SHOW THIS NURSE THAT SHE HAD SWALLOWED THE PILL. PT MOVED TONGUE AND OPENED MOUTH WIDE AND THE NURSE DID NOT VISUALIZE THE PILL ANYWHERE. PT WAS ASKED IF SHE NEEDED ANYTHING ELSE TO WHICH PT DENIES FURTHER NEEDS AT THIS TIME.
[2022-11-06 14:00] VITALS: BP 109/70; PULSE 101; RESP 16; TEMP 36.8; O2SAT 97
--- NOTE | 2022-11-06 16:24 | P.NPUPN_ITS ---
Subjective NPU Subjective: Patient is a 46-year-old female admitted involuntarily for psychotic behavior including bizarre delusions. She continued to struggle with completion of activities of daily living. She had spent much of her day in the room and stated today that everything was okay and better. She was unable to elaborate why it was better and continued to express concerns about somehow receiving messages that stated that something sinister was in her house. She had initially refused her Abilify but was able to take it with prompting with no reported side effects today. She had reported adequate sleep and minimized any thoughts of hurting herself or others. She did not endorse any depressed mood at this time. Mental Status Exam MSE Comments: Patient appears older than her stated age she was sitting in bed in mild distress. She had minimal eye contact and her hygiene was poor.. There was no evidence of any abnormal involuntary motor movements tics or tremors appreciated. There was evidence of moderate psychomotor retardation. Her speech was monotone in quality with normal rate and normal volume. She did at times appear to be responding to internal stimuli. Her mood was described as b josiah. Her affect was odd and subdued and mood incongruent.. Thought content: There was evidence of ideas of reference along with bizarre delusions. She minimized any homicidal or suicidal ideation. Her thought process was linear but superficial. Her insight was poor. Her judgment was poor. Her impulse control appeared limited at this time. Vitals/I&O/Wt Last Vital Signs Temp 98.3 F 11/06/22 14:00 Pulse 101 H 11/06/22 14:00 Resp 16 11/06/22 14:00 BP 109/70 11/06/22 14:00 Pulse Ox 97 11/06/22 14:00 O2 Del Method Room Air 11/06/22 14:00 Data NPU 10/28/22 21:32 10/28/22 21:32 A&P Assessment and plan (1) Psychotic disorder: Plan Patient is a 46-year-old admitted with psychotic symptoms with no prior history but reporting increased stressors over past month with management of demented father. 1.? ?Engage? patient in individual ,milieu, and group therapy ?2. ? Increase Abilify to 10mg daily to target psychosis. ?3. ? TO-15 minute checks on the unit. Patient now on 21 day hold. ?4.? Recommend sober living treatment at the highest level of care to which the patient is willing to commit. Involuntary Hold Information 96 Hour Hold: 96 Hour Involuntary Admission: Yes 96 Hour Hold Ending Date: 11/02/22 96 Hour Hold Ending Time: 00:01 Attestations NPU Medical Necessity Statement*: Inpatient hospitalization is medically necessary and deemed to be the clinically appropriate intervention at this time. We will monitor initiate medications while making changes as indicated. The patient's likely length of stay is 5-8 days. Coding Level of Care Code Acute Code for [facility] Fwd Diagnoses Psychotic disorder F29
[2022-11-06 21:21] VITALS: BP 114/74; PULSE 94; RESP 18; TEMP 36.6; O2SAT 97
[2022-11-07 05:55] VITALS: BP 112/65; PULSE 92; RESP 20; TEMP 36.6; O2SAT 98
[2022-11-07] MEDS: haloperidol inj 5 mg/mL INJ 1 mL IM (08:26)
[2022-11-07] MEDS: diphenhydrAMINE 50 mg/mL SDV 1mL IM (08:26)
[2022-11-07 14:00] VITALS: BP 107/67; PULSE 85; RESP 17; TEMP 36.6; O2SAT 95
--- NOTE | 2022-11-07 16:38 | W.PM.NPUPNS ---
Subjective NPU Subjective: Patient is a 46-year-old female admitted involuntarily for psychotic behavior including bizarre delusions. She had refused Abilify yesterday stating that it was giving her problems with urination and was given intramuscular Haldol in its place. Patient had reported feeling better after receiving the Haldol intramuscular. She stated that she had a conversation with her son that was positive. She reported feeling less concerned about the nature of the evil in her home. She had denied having the belief that her son had been possessed by the devil. She had continue to remain isolative on the milieu. In evaluation of the patient's ability to maintain independent living had shown that she needed help in 11 out of 13 areas despite there being no history in the past of psychosis or declining function. Mental Status Exam MSE Comments: Patient appears older than her stated age she was sitting in bed in mild distress. She had minimal eye contact and her hygiene was poor. There was no evidence of any abnormal involuntary motor movements tics or tremors appreciated. There was evidence of moderate psychomotor retardation. Her speech was monotone in quality with normal rate and normal volume. She did at times appear to be responding to internal stimuli. Her mood was described as okay. Her affect was odd and subdued and mood incongruent.. Thought content: There was evidence of ideas of reference along with bizarre delusions. She minimized any homicidal or suicidal ideation. Her thought process was linear but superficial. Her insight was poor. Her judgment was poor. Her impulse control appeared limited at this time. Vitals/I&O/Wt Last Vital Signs Temp 97.8 F 11/07/22 14:00 Pulse 85 11/07/22 14:00 Resp 17 11/07/22 14:00 BP 107/67 11/07/22 14:00 Pulse Ox 95 11/07/22 14:00 O2 Del Method Room Air 11/07/22 05:55 Data NPU 10/28/22 21:32 10/28/22 21:32 A&P Assessment and plan (1) Psychotic disorder: Plan Patient is a 46-year-old admitted with psychotic symptoms with no prior history but reporting increased stressors over past month with management of demented father. 1.? ?Engage? patient in individual ,milieu, and group therapy ?2. ? Discontinue Abilify and begin Haldol 1 mg twice a day orally with Haldol IM to be given if refusal occurs. ?3. ? TO-15 minute checks on the unit. Patient now on 21 day hold. ?4.? Recommend sober living treatment at the highest level of care to which the patient is willing to commit. Involuntary Hold Information 96 Hour Hold: 96 Hour Involuntary Admission: Yes 96 Hour Hold Ending Date: 11/02/22 96 Hour Hold Ending Time: 00:01 Attestations NPU Medical Necessity Statement*: Inpatient hospitalization is medically necessary and deemed to be the clinically appropriate intervention at this time. We will monitor initiate medications while making changes as indicated. The patient's likely length of stay is 5-8 days. Coding Level of Care Code Acute Code for [facility] Fwd Diagnoses Psychotic disorder F29
[2022-11-07] MEDS: haloperidol 1 mg Tablet PO (17:10)
[2022-11-07 21:22] VITALS: BP 109/71; PULSE 102; RESP 18; TEMP 36.6; O2SAT 97
[2022-11-07] MEDS: trazodone 50 mg Tablet PO (22:41)
[2022-11-08 06:00] VITALS: BP 109/80; PULSE 91; RESP 16; O2SAT 95
[2022-11-08] MEDS: haloperidol 1 mg Tablet PO (08:27)
--- NOTE | 2022-11-08 10:34 | P.NPUPN_ITS ---
Subjective NPU Subjective: Patient presented today reporting that she is feeling better since she and Dr. Santiago discontinued the Abilify. She reports she is tolerating the Haldol better and we discussed moving the dose to a more appropriate 2 mg p.o. twice daily. She reports that she is having less of the anxious thoughts about her family that she was having when she arrived. We agreed that we would evaluate her daily to decide when discharge would be appropriate. She denied any specific side effects to the switch to Haldol at this time. Mental Status Exam MSE Comments: This is a well-nourished, well-developed white female in hospital scrubs with limited grooming and eye contact, appearing older than her stated age. No abnormal movements except for mild to moderate psychomotor retardation. Cooperative with exam in mild distress. Her speech was monotone in quality with normal rate and normal volume. Her mood was described as okay. Her affect was odd and subdued. Thought process linear. Thought content: She denied suicidal or homicidal ideation, there were no delusions reported or noted but ackno wledged she has had some problems with her thoughts since admission. She denied auditory or visual hallucinations. Attention and concentration were intact and memory appeared mostly reliable, but none were formally tested. She is alert and oriented to person and place. Her insight was poor. Her judgment was poor. Her impulse control appeared limited. Vitals/I&O/Wt Last Vital Signs Temp 97.8 F 11/07/22 21:22 Pulse 91 11/08/22 06:00 Resp 16 11/08/22 06:00 BP 109/80 11/08/22 06:00 Pulse Ox 95 11/08/22 06:00 O2 Del Method Room Air 11/08/22 06:00 Data NPU 10/28/22 21:32 10/28/22 21:32 A&P Assessment and plan (1) Psychotic disorder: Plan Patient is a 46-year-old admitted with psychotic symptoms with no prior history but reporting increased stressors over past month with management of demented father. 1.? ?Engage? patient in individual ,milieu, and group therapy ?2. ? Discontinued Abilify and began Haldol increase to 2 mg twice a day orally with Haldol IM to be given if refusal occurs. ?3. ? TO-15 minute checks on the unit. Patient now on 21 day hold. ?4.? Recommend sober living treatment at the highest level of care to which the patient is willing to commit. Involuntary Hold Information 96 Hour Hold: 96 Hour Involuntary Admission: Yes 96 Hour Hold Ending Date: 11/02/22 96 Hour Hold Ending Time: 00:01 Attestations NPU Medical Necessity Statement*: Inpatient hospitalization is medically necessary and deemed to be the clinically appropriate intervention at this time. We will monitor initiate medications w hile making changes as indicated. The patient's likely length of stay is 4-7 days. Coding Level of Care Code Acute Code for [facility] Fwd Diagnoses Psychotic disorder F29
[2022-11-08 14:00] VITALS: BP 120/84; PULSE 83; RESP 16; TEMP 36.6; O2SAT 98
[2022-11-08] MEDS: haloperidol 1 mg Tablet 2 MG PO (18:11)
[2022-11-08] MEDS: trazodone 50 mg Tablet PO (21:20)
[2022-11-08 21:46] VITALS: BP 106/76; PULSE 90; RESP 16; TEMP 36.7; O2SAT 97
[2022-11-09 06:00] VITALS: BP 96/61; PULSE 72; RESP 15; O2SAT 98
[2022-11-09] MEDS: haloperidol 1 mg Tablet 2 MG PO ×2 (09:09→18:26)
[2022-11-09] MEDS: multivitamin therapeutic Tablet 1 TAB PO (09:34)
--- NOTE | 2022-11-09 13:47 | P.NPUPN_ITS ---
Subjective NPU Subjective: Patient presented today reporting that she is feeling sad. She is missing her family, but they have not answered her calls or come and visited. but she acknowledges that she had gotten hyperreligious and was creating conflicts with that. She denied any issues with the Haldol 2 mg p.o. twice daily. She denied any side effects to the medications. Mental Status Exam MSE Comments: This is a well-nourished, well-developed white female in hospital scrubs with limited grooming and eye contact, appearing older than her stated age. No abnormal movements except for mild psychomotor retardation as well as some aimless/purposeless behaviors noted. Cooperative with exam in mild distress. Her speech was less monotone in quality with normal rate and normal volume. Her mood was described as sad. Her affect was congruent and tearful. Thought process linear. Thought content: She denied suicidal or homicidal ideation, there were no delusions reported or noted but acknowledged she has had some problems with her thoughts since admission. She denied auditory or visual hallucinations but at times appeared like she was responding to internal stimuli. Attention and concentration were intact and memory appeared mostly reliable, but none were formally tested. She is alert and oriented to person and place. Her insight was poor. Her judgment was poor. Her impulse control appeared limited. Vitals/I&O/Wt Last Vital Signs Temp 98.1 F 11/08/22 21:46 Pulse 72 11/09/22 06:00 Resp 15 11/09/22 06:00 BP 96/61 11/09/22 06:00 Pulse Ox 98 11/09/22 06:00 O2 Del Method Room Air 11/09/22 06:00 Data NPU 10/28/22 21:32 10/28/22 21:32 A&P Assessment and plan (1) Psychotic disorder: Plan Patient is a 46-year-old admitted with psychotic symptoms with no prior history but reporting increased stressors over past month with management of demented father. 1.? ?Engage? patient in individual ,milieu, and group therapy ?2. ? Discontinued Abilify and began Haldol increased to 2 mg twice a day or ally with Haldol IM to be given if refusal occurs. ?3. ? TO-15 minute checks on the unit. Patient now on 21 day hold. ?4.? Recommend sober living treatment at the highest level of care to which t he patient is willing to commit. Involuntary Hold Information 96 Hour Hold: 96 Hour Involuntary Admission: Yes 96 Hour Hold Ending Date: 11/02/22 96 Hour Hold Ending Time: 00:01 Attestations NPU Medical Necessity Statement*: Inpatient hospitalization is medically necessary and deemed to be the clinically appropriate intervention at this time. We will monitor initiate medications while making changes as indicated. The patient's likely length of stay is 4-7 days. Coding Level of Care Code Acute Code for Ch[facility] Fwd Diagnoses Psychotic disorder F29
[2022-11-09 14:00] VITALS: BP 124/85; PULSE 96; RESP 16; TEMP 36.9; O2SAT 96
[2022-11-09] MEDS: ALPRAZolam 0.5 mg Tablet 0.25 MG PO (18:26)
--- NOTE | 2022-11-09 18:30 | PC.NURSE ---
Patient currently take alprazolam 0.25mg PO bid prn for anxiety as a home medication. Dr. Chen requested this RN to put in the order. Patient appeared tearful in dayroom. This RN asked if she would like to talk in her room. After going in her room she said she had been thinking a lot about her dad and realized Saturday was Father's Day and it made her sad. This RN asked if she had a way to call her father and she said she wasn't sure where he was. This RN then asked if there was anyone that she could call that could find out where he was, but she said, I can't find him. Patient was administered xanax 0.25mg PO
[2022-11-09 21:08] VITALS: BP 108/67; PULSE 95; RESP 16; TEMP 36.6; O2SAT 98
[2022-11-10 06:00] VITALS: BP 117/71; PULSE 82; RESP 15; TEMP 36.8; O2SAT 95
[2022-11-10] MEDS: haloperidol 1 mg Tablet 2 MG PO ×2 (09:51→18:19)
[2022-11-10] MEDS: polyethylene glycol 3350 Pkt 17 gm PO (09:51)
[2022-11-10] MEDS: multivitamin therapeutic Tablet 1 TAB PO (09:52)
--- NOTE | 2022-11-10 11:52 | P.NPUPN_ITS ---
Subjective NPU Subjective: Patient presented today reporting that she is feeling better than yesterday. She reports that she actually spoke with her son which was good. She reports that she is feeling less hyperreligious. She had been noted with some strange and somewhat purposeless behaviors earlier which she really could not explain. She only reported that she feels better now, that she is not having any side e ffects and she is hoping to go home as soon as we feel she is ready. We discussed taking a daily time and working with the treatment team likely on Saturday to look at supportive discharge options as well as working with her family on their feelings about her improvement. Mental Status Exam MSE Comments: This is a well-nourished, well-developed white female in hospital scrubs with limited grooming and eye contact, appearing older than her stated age. No abnormal movements except for mild psychomotor retardation, but no aimless/purposeless behaviors noted during interview. Cooperative with exam in mild distress. Her speech was less monotone in quality with normal rate and normal volume. Her mood was described as better than yesterday. Her affect was congruent. Thought process linear. Thought content: She denied suicidal or homicidal ideation, there were no delusions reported or noted but acknowledged she has had some problems with her thoughts since admission. She denied auditory or visual hallucinations but at times appeared like she was responding to internal stimuli. Attention and concentration were intact and memory appeared mostly reliable, but none were formally tested. She is alert and oriented to person and place. Her insight was poor. Her judgment was poor. Her impulse control appeared limited. Vitals/I&O/Wt Last Vital Signs Temp 98.2 F 11/10/22 06:00 Pulse 82 11/10/22 06:00 Resp 15 11/10/22 06:00 BP 117/71 11/10/22 06:00 Pulse Ox 95 11/10/22 06:00 O2 Del Method Room Air 11/10/22 06:00 Data NPU 10/28/22 21:32 10/28/22 21:32 A&P Assessment and plan (1) Psychotic disorder: Plan Patient is a 46-year-old admitted with psychotic symptoms with no prior history but reporting increased stressors over past month with management of demented father. 1.? ?Engage? patient in individual ,milieu, and group therapy ?2. ? Discontinued Abilify and began Haldol increased to 2 mg twice a day orally with Haldol IM to be given if refusal occurs. ?3. ? TO-15 minute checks on the unit. Patient now on 21 day hold. ?4.? Recommend sober living treatment at the highest level of care to which the patient is willing to commit. Involuntary Hold Information 96 Hour Hold: 96 Hour Involuntary Admission: Yes 96 Hour Hold Ending Date: 11/02/22 96 Hour Hold Ending Time: 00:01 Attestations NPU Medical Necessity Statement*: Inpatient hospitalization is medically necessary and deemed to be the clinically appropriate intervention at this time. We will monitor initiate medications while making changes as indicated. The patient's likely length of stay is 3-6 days. Coding Level of Care Code Acute Code for [facility] Fwd Diagnoses Psychotic disorder F29
[2022-11-10 14:00] VITALS: BP 101/67; PULSE 85; RESP 15; TEMP 36.7; O2SAT 98
[2022-11-10] MEDS: ALPRAZolam 0.5 mg Tablet 0.25 MG PO (18:28)
[2022-11-10 20:15] VITALS: BP 98/62; PULSE 95; RESP 16; TEMP 36.7; O2SAT 96
[2022-11-11 06:00] VITALS: BP 123/86; PULSE 100; RESP 17; TEMP 36.7; O2SAT 96
[2022-11-11] MEDS: polyethylene glycol 3350 Pkt 17 gm PO (08:51)
[2022-11-11] MEDS: multivitamin therapeutic Tablet 1 TAB PO (08:51)
[2022-11-11] MEDS: haloperidol 1 mg Tablet 2 MG PO (08:51)
--- NOTE | 2022-11-11 10:08 | PC.NURSE ---
Patient complaining about urinary retention after the increase of Haldol. Patient came up about an hour afterwards asking for water to help her void. Patient given Cogentin 1mg for EPS. Patient does not want to take Haldol anymore, but willing to discuss with Dr Chen before refusal. Patient is willing to change to a different medication. Bladder scanned for 489ml. Patient very uncomfortable
--- NOTE | 2022-11-11 11:22 | W.PM.NPUPNS ---
Subjective NPU Subjective: Patient presented today with continued reported improvement and possibly mild improvement per staff. She is however having urinary retention and though rare this is likely secondary to her antipsychotics. We discussed holding her medication and exploring possible alternatives. However usually Abilify does not have this impact, but it did so discussed other possible mood stabilizers. Mental Status Exam MSE Comments: This is a well-nourished, well-developed white female in hospital scrubs with limited grooming and eye contact, appearing older than her stated age. No abnormal movements except for mild psychomotor retardation, but no aimless/purposeless behaviors noted during interview. Cooperative with exam in mild distress. Her speech was less monotone in quality with normal rate and normal volume. Her mood was described as better than yesterday. Her affect was congruent. Thought process linear. Thought content: She denied suicidal or homicidal ideation, there were no delusions reported or noted but acknowledged she has had some problems with her thoughts since admission. She denied auditory or visual hallucinations but at times appeared like she was responding to internal stimuli. Attention and concentration were intact and memory appeared mostly reliable, but none were formally tested. She is alert and oriented to person and place. Her insight was poor. Her judgment was poor. Her impulse control appeared limited. Vitals/I&O/Wt Last Vital Signs Temp 98.0 F 11/11/22 06:00 Pulse 100 11/11/22 06:00 Resp 17 11/11/22 06:00 BP 123/86 11/11/22 06:00 Pulse Ox 96 11/11/22 06:00 O2 Del Method Room Air 11/11/22 06:00 11/10/22 11/11/22 11/11/22 22:59 06:59 14:59 Intake Total 360 / 360 Balance 360 / 360 Weight last 48 hrs Weight 62.777 kg Physical Exam Urinary Catheter Management: Bauer: Cath Placed During This Visit: yes Urinary Catheter Date of Insertion: 11/11/22 Urinary Catheter Time of Insertion: 11:00 Data NPU 10/28/22 21:32 10/28/22 21:32 A&P Assessment and plan (1) Psychotic disorder: Plan Patient is a 46-year-old admitted with psychotic symptoms with no prior history but reporting increased stressors over past month with management of demented father. 1.? ?Engage? patient in individual ,milieu, and group therapy ?2. ? Discontinued Abilify and began Haldol increased to 2 mg twice a day orally with Haldol IM to be given if refusal occurs. Discontinued Haldol and now looking for an alternative mood stabilizer. Given urinary retention we will hold antipsychotics for the next couple days. ?3. ? TO-15 minute checks on the unit. Patient now on 21 day hold. ?4.? Recommend sober living treatment at the highest level of care to which the patient is willing to commit. Involuntary Hold Information 96 Hour Hold: 96 Hour Involuntary Admission: Yes 96 Hour Hold Ending Date: 11/02/22 96 Hour Hold Ending Time: 00:01 Attestations NPU Medical Necessity Statement*: Inpatient hospitalization is medically necessary and deemed to be the clinically appropriate intervention at this time. We will monitor initiate medications while making changes as indicated. The patient's likely length of stay is 2-5 days. Coding Level of Care Code Acute Code for [facility] Fwd Diagnoses Psychotic disorder F29
[2022-11-11 14:00] VITALS: BP 104/70; PULSE 95; RESP 16; TEMP 36.6; O2SAT 100
[2022-11-11] MEDS: ALPRAZolam 0.5 mg Tablet 0.25 MG PO (15:26)
--- NOTE | 2022-11-11 17:17 | PC.NURSE ---
patient presented o nurses station, had not voided since palacios cath removed. Dr Chen notified of scan 718ml. Discussed catheter to leave in. Nursing Sup informed, patient was able to void after 'forcing ' stream. Repeat scan 180ml. Will hold catheter for now
[2022-11-11] MEDS: hyDROXYzine 25 mg Capsule 50 MG PO (19:51)
[2022-11-11 21:05] VITALS: BP 116/75; PULSE 113; RESP 16; TEMP 36.9; O2SAT 97
[2022-11-12] MEDS: ALPRAZolam 0.5 mg Tablet 0.25 MG PO ×2 (03:59→11:59)
[2022-11-12 06:00] VITALS: BP 91/60; PULSE 87; RESP 16; TEMP 36.7; O2SAT 95
[2022-11-12] MEDS: multivitamin therapeutic Tablet 1 TAB PO (09:06)
[2022-11-12] MEDS: polyethylene glycol 3350 Pkt 17 gm PO (09:07)
--- NOTE | 2022-11-12 11:56 | P.NPUPN_ITS ---
Subjective NPU Subjective: Patient presented today reporting that she is doing better and continues to be able to respond to the therapeutic dosing of medication but is struggling with the side effects of urinary retention. She has not had a side effect with Invega, Abilify and low-dose Haldol. We discussed leaving her medication for a day or so and trying to explore which antipsychotic might avoid this side effect there is multiple possible etiologies. We discussed exploring an agent with the least alpha-1 agonist, alpha-2 antagonism and anticholinergic nature. We discussed the possibility that they could be Seroquel. She is reporting today that it feels like she is returning to normal bladder usage. Mental Status Exam MSE Comments: This is a well-nourished, well-developed white female in hospital scrubs with limited grooming and eye contact, appearing older than her stated age. No abnormal movements except for mild psychomotor retardation, but no aimless/purposeless behaviors noted during interview. Cooperative with exam in mild distress. Her speech was less monotone in quality with normal rate and normal volume. Her mood was described as better. Her affect was congruent. Thought process linear. Thought content: She denied suicidal or homicidal ideation, there were no delusions reported or noted but acknowledged she has had some problems with her thoughts since admission. She denied auditory or visual hallucinations but at times appeared like she was responding to internal stimuli. Attention and concentration were intact and memory appeared mostly reliable, but none were formally tested. She is alert and oriented to person and place. Her insight and judgment were poor, but improving. Her impulse control appeared limited. Vitals/I&O/Wt Last Vital Signs Temp 98.0 F 11/12/22 06:00 Pulse 87 11/12/22 06:00 Resp 16 11/12/22 06:00 BP 91/60 11/12/22 06:00 Pulse Ox 95 11/12/22 06:00 O2 Del Method Room Air 11/11/22 21:05 Weight last 48 hrs Weight 62.777 kg Physical Exam Urinary Catheter Management: Bauer: Cath Placed During This Visit: yes Urinary Catheter Date of Insertion: 11/11/22 Urinary Catheter Time of Insertion: 11:00 Data NPU 10/28/22 21:32 10/28/22 21:32 A&P Assessment and plan (1) Psychotic disorder: Plan Patient is a 46-year-old admitted with psychotic symptoms with no prior history but reporting increased stressors over past month with management of demented father. 1.? ?Engage? patient in individual ,milieu, and group therapy ?2. ? Discontinued Abilify and began Haldol increased to 2 mg twice a day orally with Haldol IM to be given if refusal occurs. Discontinued Haldol and now looking for an alternative mood stabilizer. Given urinary retention we will hold antipsychotics for the next couple days. ?3. ? TO-15 minute checks on the unit. Patient now on 21 day hold. ?4.? Recommend sober living treatment at the highest level of care to which the patient is willing to commit. Involuntary Hold Information 96 Hour Hold: 96 Hour Involuntary Admission: Yes 96 Hour Hold Ending Date: 11/02/22 96 Hour Hold Ending Time: 00:01 Attestations NPU Medical Necessity Statement*: Inpatient hospitalization is medically necessary and deemed to be the clinically appropriate intervention at this time. We will monitor initiate medications while making changes as indicated. The patient's likely length of stay is 2-4 days. Coding Level of Care Code Acute Code for [facility] Fwd Diagnoses Psychotic disorder F29
[2022-11-12 14:00] VITALS: BP 126/85; PULSE 100; RESP 16; TEMP 37; O2SAT 95
[2022-11-12] MEDS: hyDROXYzine 25 mg Capsule 50 MG PO (20:23)
[2022-11-12] MEDS: trazodone 50 mg Tablet PO (20:23)
[2022-11-12] MEDS: magnesium hydroxide 30 mL UDC PO (20:25)
[2022-11-12 21:12] VITALS: BP 115/64; PULSE 101; RESP 18; O2SAT 100
[2022-11-13] MEDS: hyDROXYzine 25 mg Capsule 50 MG PO (05:08)
[2022-11-13 06:00] VITALS: BP 99/62; PULSE 92; RESP 16; TEMP 36.6; O2SAT 97
[2022-11-13] MEDS: multivitamin therapeutic Tablet 1 TAB PO (08:25)
[2022-11-13] MEDS: polyethylene glycol 3350 Pkt 17 gm PO (08:25)
[2022-11-13 14:00] VITALS: BP 129/87; PULSE 113; RESP 15; O2SAT 99
--- NOTE | 2022-11-13 14:15 | PC.NURSE ---
PT IS CURRENTLY PACING THE HALLWAYS. PT CURRENTLY APPEARS INTERNALLY OCCUPIED. PT STATES SOMEONE TOLD ME TO WAIT AND FIELD [employer] THE PHONE. PT ALSO STATED THEY TOOK OVER MY BODY AND TOLD ME TO WAIT HERE.
--- NOTE | 2022-11-13 14:47 | PC.NURSE ---
ORDERED 0.4 MG OF FLOMAX TO BE GIVEN TO PT NOW AND THEN DAILY. PT IS CURRENTLY REFUSING TO TAKE MEDICATION AND PHYSICIAN IS AWARE. PT IS ACTIVELY HAVING AUDIO HALLUCINATIONS. PT STATES THERE IS SOMEONE TELLING ME 'NO WAY, NO FUCKING WAY' PT ALSO STATES HE SAYS TO TELL THE DOCTOR HE WILL KNOW WHAT IM TALKING ABOUT WILL CONTINUE TO MONITOR PT.
[2022-11-13] MEDS: tamsulosin 0.4 mg Capsule PO (15:20)
--- NOTE | 2022-11-13 15:35 | W.PM.NPUPNS ---
Subjective NPU Subjective: Patient presented today with a clear setback. Though the day he is off of antipsychotic assisted in her urinary retention resolving the psychosis is returning. We discussed speaking with the neurology department and recommendation of initiating Flomax prior to restarting antipsychotic and she understood and agreed to proceed as is documented in this note. However she had significant difficulty taking medication secondary to resumption of paranoia. We discussed monitoring for any urinary retention and whether or not how low would be the best antipsychotic given limited clarity on the pathophysiology of urinary retention with antipsychotics. Mental Status Exam MSE Comments: This is a well-nourished, well-developed white female in hospital scrubs with limited grooming and eye contact, appearing older than her stated age. No abnormal movements except for mild psychomotor retardation, but significant aimless/purposeless behaviors noted with fancy full dancing and movements down the hallway that she endorsed represented a ceremony. Cooperative with exam in mild to moderate distress. Her speech was less monotone in quality with normal rate and normal volume. Her mood was described as okay. Her affect was congruent, but resumed in nature days removed from antipsychotic. Thought process linear. Thought content: She denied suicidal or homicidal ideation, there were no delusions reported or but in hyperreligious delusions noted. She denied auditory or visual hallucinations but at times appeared like she was responding to internal stimuli. Attention and concentration were intact and memory appeared unreliable, but none were formally tested. She is alert and oriented to person and place. Her insight and judgment were poor. Her impulse control appeared impaired. Vitals/I&O/Wt Last Vital Signs Temp 98.0 F 11/13/22 22:00 Pulse 108 H 11/13/22 22:00 Resp 20 H 11/13/22 22:00 BP 143/89 11/13/22 22:00 Pulse Ox 97 11/13/22 22:00 O2 Del Method Room Air 11/13/22 22:00 Physical Exam Urinary Catheter Management: Bauer: Cath Placed During This Visit: yes Urinary Catheter Date of Insertion: 11/11/22 Urinary Catheter Time of Insertion: 11:00 Data NPU 10/28/22 21:32 10/28/22 21:32 A&P Assessment and plan (1) Psychotic disorder: Plan Patient is a 46-year-old admitted with psychotic symptoms with no prior history but reporting increased stressors over past month with management of demented father. 1.? ?Engage? patient in individual ,milieu, and group therapy ?2. ? Discontinued Abilify and began Haldol increased to 2 mg twice a day orally with Haldol IM to be given if refusal occurs. Discontinued Haldol and now looking for an alternative mood stabilizer. Given urinary retention we will hold antipsychotics for the next couple days. Started patient on Flomax and will now reintroduce Haldol 1 mg p.o. twice daily for psychosis and monitor urinary retention. ?3. ? TO-15 minute checks on the unit. Patient now on 21 day hold. ?4.? Recommend sober living treatment at the highest level of care to which the patient is willing to commit. Involuntary Hold Information 96 Hour Hold: 96 Hour Involuntary Admission: Yes 96 Hour Hold Ending Date: 11/02/22 96 Hour Hold Ending Time: 00:01 Attestations NPU Medical Necessity Statement*: Inpatient hospitalization is medically necessary and deemed to be the clinically appropriate intervention at this time. We will monitor initiate medications while making changes as indicated. The patient's likely length of stay is 3-5 days. Coding Level of Care Code Acute Code for [facility] Fwd Diagnoses Psychotic disorder F29
[2022-11-13] MEDS: haloperidol 1 mg Tablet PO (20:17)
[2022-11-13] MEDS: LORazepam 2 mg/mL INJ 1 mL IM (21:02)
[2022-11-13] MEDS: diphenhydrAMINE 50 mg/mL SDV 1mL IM (21:02)
[2022-11-13 22:00] VITALS: BP 143/89; PULSE 108; RESP 20; TEMP 36.7; O2SAT 97
--- NOTE | 2022-11-13 22:30 | PC.NURSE ---
At approximately 2049 pt was extremely agitated and anxious screaming and cussing t/o the unit. Pt was talking to her son on the phone stating I don't feel right, and this is illegal call the president . Pt did take scheduled haldol prior to the incident, however agitation and anxiety only con't to escalate. Pt refused PRNs PO, and stated just give me the fucking shot , IM medications administered per pt request, orders, and current highly agitated and anxious state. At the time pt was responding to voices she was hearing. When speaking on the phone she was saying [phone] I almost hung up on you . Pt is now resting in bed quietly w/o c/o, and is calm at this time.
[2022-11-14 06:00] VITALS: BP 89/57; PULSE 84; RESP 14; O2SAT 96
[2022-11-14] MEDS: polyethylene glycol 3350 Pkt 17 gm PO (09:04)
[2022-11-14] MEDS: tamsulosin 0.4 mg Capsule PO (09:04)
[2022-11-14] MEDS: multivitamin therapeutic Tablet 1 TAB PO (09:06)
[2022-11-14] MEDS: haloperidol 1 mg Tablet PO ×2 (09:06→20:13)
[2022-11-14 14:00] VITALS: BP 106/71; PULSE 108; RESP 16; TEMP 37.5; O2SAT 97
[2022-11-14] MEDS: ALPRAZolam 0.5 mg Tablet 0.25 MG PO (16:52)
[2022-11-14] MEDS: hyDROXYzine 25 mg Capsule 50 MG PO (18:49)
--- NOTE | 2022-11-14 19:08 | W.PM.NPUPNS ---
Subjective NPU Subjective: Patient presented today reporting that she is doing okay. Her level of psychotic agitation and aimless behaviors pollo to a level that she needed Haldol and Ativan to get her self under control last evening. She reports that she is feeling some difficulty with urination and we discussed the fact that we are only going to have her on a low-dose of the Haldol moving forward. We discussed the fact that we would be able to increase the Flomax to twice daily dosing. She reported less delusional thoughts and feelings however was seen again doing stereotypic behaviors. Mental Status Exam MSE Comments: This is a well-nourished, well-developed white female in hospital scrubs with limited grooming and eye contact, appearing older than her stated age. No abnormal movements except for mild psychomotor retardation, but significant aimless/purposeless behaviors noted with fancy full dancing and movements down the hallway that she endorsed represented a ceremony. Cooperative with exam in mild distress. Her speech was less monotone in quality with normal rate and normal volume. Her mood was described as okay. Her affect was congruent, but odd. Thought process linear. Thought content: She denied suicidal or homicidal ideation, there were no delusions reported or but hyperreligious delusions noted. She denied auditory or visual hallucinations but at times appeared like she was responding to internal stimuli. Attention and concentration were intact and memory appeared unreliable, but none were formally tested. She is alert and oriented to person and place. Her insight and judgment were poor. Her impulse control appeared impaired. Vitals/I&O/Wt Last Vital Signs Temp 99.5 F 11/14/22 14:00 Pulse 108 H 11/14/22 14:00 Resp 16 11/14/22 14:00 BP 106/71 11/14/22 14:00 Pulse Ox 97 11/14/22 14:00 O2 Del Method Room Air 11/14/22 14:00 11/14/22 11/14/22 11/14/22 06:59 14:59 22:59 Intake Total 360 / 360 Output Total 1200 / 1200 Balance -840 / -840 Physical Exam Urinary Catheter Management: Bauer: Cath Placed During This Visit: yes Urinary Catheter Date of Insertion: 11/11/22 Urinary Catheter Time of Insertion: 11:00 Data NPU 10/28/22 21:32 10/28/22 21:32 A&P Assessment and plan (1) Psychotic disorder: Plan Patient is a 46-year-old admitted with psychotic symptoms with no prior history but reporting increased stressors over past month with management of demented father. 1.? ?Engage? patient in individual ,milieu, and group therapy ?2. ? Discontinued Abilify and began Haldol increased to 2 mg twice a day orally with Haldol IM to be given if refusal occurs. Discontinued Haldol and now looking for an alternative mood stabilizer. Given urinary retention we will hold antipsychotics for the next couple days. Started patient on Flomax and will now reintroduce Haldol 1 mg p.o. twice daily for psychosis and monitor urinary retention. We will increase Flomax to twice daily dosing. ?3. ? TO-15 minute checks on the unit. Patient now on 21 day hold. ?4.? Recommend sober living treatment at the highest level of care to which the patient is willing to commit. Involuntary Hold Information 96 Hour Hold: 96 Hour Involuntary Admission: Yes 96 Hour Hold Ending Date: 11/02/22 96 Hour Hold Ending Time: 00:01 Attestations NPU Medical Necessity Statement*: Inpatient hospitalization is medically necessary and deemed to be the clinically appropriate intervention at this time. We will monitor initiate medications while making changes as indicated. The patient's likely length of stay is 3-5 days. Coding Level of Care Code Acute Code for [facility] Fwd Diagnoses Psychotic disorder F29
[2022-11-14 21:28] VITALS: BP 119/77; PULSE 99; RESP 16; TEMP 36.4; O2SAT 99
[2022-11-15 06:00] VITALS: BP 105/68; PULSE 79; RESP 16; TEMP 36.9; O2SAT 96
[2022-11-15] MEDS: ALPRAZolam 0.5 mg Tablet 0.25 MG PO ×2 (07:45→20:11)
[2022-11-15] MEDS: OLANZapine 5 mg ODT PO (07:45)
[2022-11-15] MEDS: multivitamin therapeutic Tablet 1 TAB PO (09:58)
[2022-11-15] MEDS: tamsulosin 0.4 mg Capsule PO ×2 (09:58→18:17)
[2022-11-15 14:00] VITALS: BP 112/81; PULSE 116; TEMP 36.6; O2SAT 100
--- NOTE | 2022-11-15 18:48 | W.PM.NPUPNS ---
Subjective NPU Subjective: Patient is in today reporting that she is feeling better. We discussed that she continues to respond to another antipsychotic is prescribed but continues to struggle with urinary retention. We increased the Flomax to twice daily dosing. She responded well to that but having some hesitancy. She reports the family is in communication and is noting her improvement. We discussed trying to make sure she has the least UR inducing medication at discharge Mental Status Exam MSE Comments: This is a well-nourished, well-developed white female in hospital scrubs with limited grooming and eye contact, appearing older than her stated age. No abnormal movements except for mild psychomotor retardation, and no aimless/purposeless behaviors noted. Cooperative with exam in mild distress. Her speech was less monotone in quality with normal rate and normal volume. Her mood was described as okay. Her affect was congruent, but odd. Thought process linear. Thought content: She denied suicidal or homicidal ideation, there were no delusions reported or and less hyperreligious delusions noted. She denied auditory or visual hallucinations. Attention and concentration were intact and memory appeared unreliable, but none were formally tested. She is alert and oriented to person and place. Her insight and judgment were poor. Her impulse control appeared impaired. Vitals/I&O/Wt Last Vital Signs Temp 97.4 F L 11/15/22 20:09 Pulse 107 H 11/15/22 20:09 Resp 16 11/15/22 20:09 BP 102/65 11/15/22 20:09 Pulse Ox 98 11/15/22 20:09 O2 Del Method Room Air 11/15/22 20:09 Physical Exam Urinary Catheter Management: Bauer: Cath Placed During This Visit: yes Urinary Catheter Date of Insertion: 11/11/22 Urinary Catheter Time of Insertion: 11:00 Data NPU 10/28/22 21:32 10/28/22 21:32 A&P Assessment and plan (1) Psychotic disorder: Plan Patient is a 46-year-old admitted with psychotic symptoms with no prior history but reporting increased stressors over past month with management of demented father. 1.? ?Engage? patient in individual ,milieu, and group therapy ?2. ? Discontinued Abilify and began Haldol increased to 2 mg twice a day orally with Haldol IM to be given if refusal occurs. Discontinued Haldol and now looking for an alternative mood stabilizer. Given urinary retention we will hold antipsychotics for the next couple days. Started patient on Flomax and will now reintroduce Haldol 1 mg p.o. twice daily for psychosis and monitor urinary retention. Increased Flomax to twice daily dosing. ?3. ? TO-15 minute checks on the unit. Patient now on 21 day hold. ?4.? Recommend sober living treatment at the highest level of care to which the patient is willing to commit. Involuntary Hold Information 96 Hour Hold: 96 Hour Involuntary Admission: Yes 96 Hour Hold Ending Date: 11/02/22 96 Hour Hold Ending Time: 00:01 Attestations NPU Medical Necessity Statement*: Inpatient hospitalization is medically necessary and deemed to be the clinically appropriate intervention at this time. We will monitor initiate medications while making changes as indicated. The patient's likely length of stay is 3-5 days. Coding Level of Care Code Acute Code for [facility] Diagnoses Psychotic disorder F29
[2022-11-15 20:09] VITALS: BP 102/65; PULSE 107; RESP 16; TEMP 36.3; O2SAT 98
[2022-11-15] MEDS: haloperidol 1 mg Tablet PO (20:11)
[2022-11-15] MEDS: trazodone 50 mg Tablet PO (20:11)
[2022-11-15] MEDS: haloperidol inj 5 mg/mL INJ 1 mL IM (23:16)
[2022-11-15] MEDS: LORazepam 2 mg/mL INJ 1 mL IM (23:16)
[2022-11-15] MEDS: diphenhydrAMINE 50 mg/mL SDV 1mL IM (23:17)
--- NOTE | 2022-11-15 23:26 | PC.NURSE ---
Pt highly anxious after being straight cathed, and agitated. Pt will not take po medication is requesting IM. IM meds given per pt request for increased anxiety and agitation.
[2022-11-16 06:00] VITALS: RESP 14
[2022-11-16] MEDS: multivitamin therapeutic Tablet 1 TAB PO (09:13)
[2022-11-16] MEDS: tamsulosin 0.4 mg Capsule PO (09:13)
[2022-11-16] MEDS: ALPRAZolam 0.5 mg Tablet 0.25 MG PO ×2 (09:18→18:17)
[2022-11-16 14:00] VITALS: BP 94/66; PULSE 98; RESP 16; TEMP 36.7; O2SAT 99
--- NOTE | 2022-11-16 18:03 | P.NPUPN_ITS ---
Subjective NPU Subjective: Patient presented today reporting that she is feeling fine and not having any urinary retention or urgency. We will maintain the Haldol at 1 mg p.o. twice daily and she reports feeling better. She continues to have occasional fanciful movements per staff. And occasionally noted by this telegraphic typewriter operator. She has appeared less hyperreligious per the reports that occasionally has kissed or had other behaviors that were clearly meant to be signs of holiness obedience. Mental Status Exam MSE Comments: This is a well-nourished, well-developed white female in hospital scrubs with limited grooming and eye contact, appearing older than her stated age. No abnormal movements except for mild psychomotor retardation, and occasional movements/behaviors noted. Cooperative with exam in mild distress. Her speech was less monotone in quality with normal rate and normal volume. Her mood was described as okay. Her affect was congruent, but odd. Thought process linear. Thought content: She denied suicidal or homicidal ideation, there were no delusions reported and less hyperreligious delusions noted. She denied auditory or visual hallucinations. Attention and concentration were intact and memory appeared unreliable, but none were formally tested. She is alert and oriented to person and place. Her insight and judgment were poor. Her impulse control appeared impaired. Vitals/I&O/Wt Last Vital Signs Temp 98.2 F 11/16/22 21:30 Pulse 118 H 11/16/22 21:30 Resp 16 11/16/22 21:30 BP 99/57 11/16/22 21:30 Pulse Ox 97 11/16/22 21:30 O2 Del Method Room Air 11/16/22 14:00 Physical Exam Urinary Catheter Management: Bauer: Cath Placed During This Visit: yes Urinary Catheter Date of Insertion: 11/11/22 Urinary Catheter Time of Insertion: 11:00 Data NPU 10/28/22 21:32 10/28/22 21:32 A&P Assessment and plan (1) Psychotic disorder: Plan Patient is a 46-year-old admitted with psychotic symptoms with no prior history but reporting increased stressors over past month with management of demented father. 1.? ?Engage? patient in individual ,milieu, and group therapy ?2. ? Discontinued Abilify and began Haldol increased to 2 mg twice a day orally with Haldol IM to be given if refusal occurs. Discontinued Haldol and now looking for an alternative mood stabilizer. Given urinary retention we will hold antipsychotics for the next couple days. Started patient on Flomax and will now reintroduce Haldol 1 mg p.o. twice daily for psychosis and monitor urinary retention. Increased Flomax to twice daily dosing. ?3. ? TO-15 minute checks on the unit. Patient now on 21 day hold. ?4.? Recommend sober living treatment at the highest level of care to which the patient is willing to commit. Involuntary Hold Information 96 Hour Hold: 96 Hour Involuntary Admission: Yes 96 Hour Hold Ending Date: 11/02/22 96 Hour Hold Ending Time: 00:01 Attestations NPU Medical Necessity Statement*: Inpatient hospitalization is medically necessary and deemed to be the clinically appropriate intervention at this time. We will monitor initiate medications while making changes as indicated. The patient's likely length of stay is 3-5 days. Coding Level of Care Code Acute Code for g Fwd Diagnoses Psychotic disorder F29
[2022-11-16 21:30] VITALS: BP 99/57; PULSE 118; RESP 16; TEMP 36.8; O2SAT 97
[2022-11-17 06:00] VITALS: BP 97/62; PULSE 86; RESP 16; TEMP 36.7; O2SAT 97
[2022-11-17] MEDS: hyDROXYzine 25 mg Capsule 50 MG PO ×2 (07:55→14:55)
[2022-11-17] MEDS: tamsulosin 0.4 mg Capsule PO ×2 (07:55→18:49)
[2022-11-17] MEDS: multivitamin therapeutic Tablet 1 TAB PO (07:56)
[2022-11-17] MEDS: ALPRAZolam 0.5 mg Tablet 0.25 MG PO ×2 (08:40→21:20)
--- NOTE | 2022-11-17 12:02 | W.PM.NPUPNS ---
Subjective NPU Subjective: Patient presented today reporting that she is doing okay in general and is urinating without difficulty with the Flomax. We agreed that Haldol was acceptable secondary to the urinary retention. We agreed to give her a washout day and to consider trying Seroquel tomorrow. She has significant trepidation because of how things are going so far we agreed we would go slow. She feels that she will be in to go home to her family, however we did discuss the fact that without having clear management of her psychosis and hyperreligious tendencies this would not last long. Mental Status Exam MSE Comments: This is a well-nourished, well-developed white female in hospital scrubs with limited grooming and eye contact, appearing older than her stated age. No abnormal movements except for mild psychomotor retardation, and occasional odd movements/behaviors noted. Cooperative with exam in mild distress. Her speech was less monotone in quality with normal rate and normal volume. Her mood was described as okay. Her affect was congruent, but odd. Thought process linear. Thought content: She denied suicidal or homicidal ideation, there were no delusions reported and less hyperreligious delusions noted. She denied auditory or visual hallucinations. Attention and concentration were intact and memory appeared unreliable, but none were formally tested. She is alert and oriented to person and place. Her insight and judgment were poor. Her impulse control appeared impaired. Vitals/I&O/Wt Last Vital Signs Temp 98.1 F 11/17/22 06:00 Pulse 86 11/17/22 06:00 Resp 16 11/17/22 06:00 BP 97/62 11/17/22 06:00 Pulse Ox 97 11/17/22 06:00 O2 Del Method Room Air 11/16/22 14:00 Physical Exam Urinary Catheter Management: Bauer: Cath Placed During This Visit: yes Urinary Catheter Date of Insertion: 11/11/22 Urinary Catheter Time of Insertion: 11:00 Data NPU 10/28/22 21:32 10/28/22 21:32 A&P Assessment and plan (1) Psychotic disorder: Plan Patient is a 46-year-old admitted with psychotic symptoms with no prior history but reporting increased stressors over past month with management of demented father. 1.? ?Engage? patient in individual ,milieu, and group therapy ?2. ? Discontinued Abilify and began Haldol increased to 2 mg twice a day orally with Haldol IM to be given if refusal occurs. Discontinued Haldol and now looking for an alternative mood stabilizer. Given urinary retention we will hold antipsychotics for the next couple days. Started patient on Flomax and reintroduced Haldol 1 mg p.o. twice daily for psychosis with return of urinary retention. So we did continue Haldol and will have a trial of Seroquel 25 mg p.o. twice daily. Increased Flomax to twice daily dosing. ?3. ? TO-15 minute checks on the unit. Patient now on 21 day hold. ?4.? Recommend sober living treatment at the highest level of care to which the patient is willing to commit. Involuntary Hold Information 96 Hour Hold: 96 Hour Involuntary Admission: Yes 96 Hour Hold Ending Date: 11/02/22 96 Hour Hold Ending Time: 00:01 Attestations NPU Medical Necessity Statement*: Inpatient hospitalization is medically necessary and deemed to be the clinically appropriate intervention at this time. We will monitor initiate medications while making changes as indicated. The patient's likely length of stay is 3-5 days. Coding Level of Care Code Acute Code for g Fwd Diagnoses Psychotic disorder F29
[2022-11-17 14:00] VITALS: BP 105/69; PULSE 127; RESP 18; TEMP 36.9; O2SAT 96
[2022-11-17] MEDS: ibuprofen 600 mg Tablet PO (14:56)
[2022-11-17] MEDS: fluconazole 100 mg Tablet 150 MG PO (18:48)
[2022-11-17 21:45] VITALS: BP 121/57; PULSE 105; RESP 20; TEMP 36.7; O2SAT 97
[2022-11-17] MEDS: trazodone 50 mg Tablet PO (22:46)
[2022-11-18 06:00] VITALS: BP 121/83; PULSE 106; RESP 18; TEMP 36.5; O2SAT 97
[2022-11-18] MEDS: tamsulosin 0.4 mg Capsule PO ×2 (08:41→18:14)
[2022-11-18] MEDS: quetiapine 25 mg Tablet PO ×2 (08:42→18:13)
[2022-11-18] MEDS: multivitamin therapeutic Tablet 1 TAB PO (08:42)
--- NOTE | 2022-11-18 10:34 | W.PM.NPUPNS ---
Subjective NPU Subjective: Patient presented today denying any issues with urinary retention related to the initiation of the Seroquel. We discussed a likely titration tomorrow likely with the nighttime dose. She continues to have on movements from time to time sometimes reflecting her hyperreligious thought processes. Otherwise she reports that she is feeling a little calmer with the medication and is feeling comfortable with her considering an increase tomorrow. Mental Status Exam MSE Comments: This is a well-nourished, well-developed white female in hospital scrubs with limited grooming and eye contact, appearing older than her stated age. No abnormal movements except for mild psychomotor retardation, and occasional odd movements/behaviors noted. Cooperative with exam in mild distress. Her speech was less monotone in quality with normal rate and normal volume. Her mood was described as okay. Her affect was congruent, but odd. Thought process linear. Thought content: She denied suicidal or homicidal ideation, there were no delusions reported and less hyperreligious delusions noted. She denied auditory or visual hallucinations. Attention and concentration were intact and memory appeared unreliable, but none were formally tested. She is alert and oriented to person and place. Her insight and judgment were poor. Her impulse control appeared impaired. Vitals/I&O/Wt Last Vital Signs Temp 97.7 F 11/18/22 06:00 Pulse 106 H 11/18/22 06:00 Resp 18 11/18/22 06:00 BP 121/83 11/18/22 06:00 Pulse Ox 97 11/18/22 06:00 O2 Del Method Room Air 11/18/22 06:00 Weight last 48 hrs Weight 63.163 kg Physical Exam Urinary Catheter Management: Bauer: Cath Placed During This Visit: yes Urinary Catheter Date of Insertion: 11/11/22 Urinary Catheter Time of Insertion: 11:00 Data NPU 10/28/22 21:32 10/28/22 21:32 A&P Assessment and plan (1) Psychotic disorder: Plan Patient is a 46-year-old admitted with psychotic symptoms with no prior history but reporting increased stressors over past month with management of demented father. 1.? ?Engage? patient in individual ,milieu, and group therapy ?2. ? Discontinued Abilify and began Haldol increased to 2 mg twice a day orally with Haldol IM to be given if refusal occurs. Discontinued Haldol and now looking for an alternative mood stabilizer. Given urinary retention we will hold antipsychotics for the next couple days. Started patient on Flomax and reintroduced Haldol 1 mg p.o. twice daily for psychosis with return of urinary retention. So we did continue Haldol and will have a trial of Seroquel 25 mg p.o. twice daily. We will consider increase tomorrow. Increased Flomax to twice daily dosing. ?3. ? TO-15 minute checks on the unit. Patient now on 21 day hold. ?4.? Recommend sober living treatment at the highest level of care to which the patient is willing to commit. Involuntary Hold Information 96 Hour Hold: 96 Hour Involuntary Admission: Yes 96 Hour Hold Ending Date: 11/02/22 96 Hour Hold Ending Time: 00:01 Attestations NPU Medical Necessity Statement*: Inpatient hospitalization is medically necessary and deemed to be the clinically appropriate intervention at this time. We will monitor initiate medications while making changes as indicated. The patient's likely length of stay is 3-5 days. Coding Level of Care Code Acute Code for M[facility] Diagnoses Psychotic disorder F29
[2022-11-18] MEDS: neomycin-poly-bacitracin oint 28 gm 1 APPLIC TOPICAL (12:24)
[2022-11-18] MEDS: ALPRAZolam 0.5 mg Tablet 0.25 MG PO ×2 (13:11→23:58)
[2022-11-18 14:00] VITALS: BP 124/54; PULSE 102; RESP 16; TEMP 36.6; O2SAT 97
--- NOTE | 2022-11-18 15:14 | PC.NURSE ---
Patient has a rectangularly shaped rash on her left inner thigh from the application infrastructure engineer a catheter bag. The size is about 3 inches by 2 inches. This nurse covered the rash with antibiotic ointment and covered with gauze. Will continue to monitor.
[2022-11-18 20:31] VITALS: BP 95/55; PULSE 118; RESP 18; TEMP 36.3; O2SAT 97
[2022-11-18] MEDS: trazodone 50 mg Tablet PO ×2 (21:33→23:58)
[2022-11-19 06:00] VITALS: BP 94/60; PULSE 109; RESP 16; TEMP 36.6; O2SAT 95
[2022-11-19] MEDS: ALPRAZolam 0.5 mg Tablet 0.25 MG PO ×2 (07:58→20:35)
[2022-11-19] MEDS: quetiapine 25 mg Tablet PO (07:59)
[2022-11-19] MEDS: tamsulosin 0.4 mg Capsule PO ×2 (07:59→20:35)
[2022-11-19] MEDS: multivitamin therapeutic Tablet 1 TAB PO (07:59)
[2022-11-19 14:00] VITALS: BP 102/65; PULSE 112; RESP 17; TEMP 36.3; O2SAT 96
[2022-11-19] MEDS: hyDROXYzine 25 mg Capsule 50 MG PO ×2 (15:38→22:57)
--- NOTE | 2022-11-19 15:39 | PC.NURSE ---
Patient rating anxiety 6/10. patient pacing halls, acting upset. Administered 50mg Vistaril to patient after distraction efforts were unsuccessful.
--- NOTE | 2022-11-19 17:30 | P.NPUPN_ITS ---
Subjective NPU Subjective: Patient presented today reporting she is tolerating the Seroquel without urinary retention. Staff reports of her being a little less animated and giddy. We discussed increasing Seroquel nighttime dose to 50 tonight and continuing a slow titration and hoping we can avoid urinary retention and possibly get her out this week. Mental Status Exam MSE Comments: This is a well-nourished, well-developed white female in hospital scrubs with limited grooming and eye contact, appearing older than her stated age. No abnormal movements except for mild psychomotor retardation, and occasional odd movements/behaviors noted. Cooperative with exam in mild distress. Her speech was less monotone in quality with normal rate and normal volume. Her mood was described as okay. Her affect was congruent, but odd. Thought process linear. Thought content: She denied suicidal or homicidal ideation, there were no delusions reported and less hyperreligious delusions noted. She denied auditory or visual hallucinations. Attention and concentration were intact and memory appeared unreliable, but none were formally tested. She is alert and oriented to person and place. Her insight and judgment were poor. Her impulse control appeared impaired. Vitals/I&O/Wt Last Vital Signs Temp 97.2 F L 11/19/22 20:40 Pulse 118 H 11/19/22 20:40 Resp 18 11/19/22 20:40 BP 110/80 11/19/22 20:40 Pulse Ox 97 11/19/22 20:40 O2 Del Method Room Air 11/19/22 06:00 11/19/22 11/19/22 11/20/22 14:59 22:59 06:59 Intake Total 360 / 360 Output Total 1200 / 1200 Balance -840 / -840 Weight last 48 hrs Weight 63.163 kg Physical Exam Urinary Catheter Management: Bauer: Cath Placed During This Visit: yes Urinary Catheter Date of Insertion: 11/11/22 Urinary Catheter Time of Insertion: 11:00 Data NPU 10/28/22 21:32 10/28/22 21:32 A&P Assessment and plan (1) Psychotic disorder: Plan Patient is a 46-year-old admitted with psychotic symptoms with no prior history but reporting increased stressors over past month with management of demented father. 1.? ?Engage? patient in individual ,milieu, and group therapy ?2. ? Discontinued Abilify and began Haldol increased to 2 mg twice a day orally with Haldol IM to be given if refusal occurs. Discontinued Haldol and now looking for an alternative mood stabilizer. Given urinary retention we will hold antipsychotics for the next couple days. Started patient on Flomax and reintroduced Haldol 1 mg p.o. twice daily for psychosis with return of urinary retention. So we did continue Haldol and will have a trial of Seroquel 25 mg p.o. twice daily. Increase evening dose to 50 mg. Increased Flomax to twice daily dosing. ?3. ? TO-15 minute checks on the unit. Patient now on 21 day hold. ?4.? Recommend sober living treatment at the highest level of care to which the patient is willing to commit. Involuntary Hold Information 96 Hour Hold: 96 Hour Involuntary Admission: Yes 96 Hour Hold Ending Date: 11/02/22 96 Hour Hold Ending Time: 00:01 Attestations NPU Medical Necessity Statement*: Inpatient hospitalization is medically necessary and deemed to be the clinically appropriate intervention at this time. We will monitor initiate medications while making changes as indicated. The patient's likely length of stay is 3-5 days. Coding Level of Care Code Acute Code for [facility]wd Diagnoses Psychotic disorder F29
[2022-11-19] MEDS: quetiapine 25 mg Tablet 50 MG PO (20:35)
[2022-11-19 20:40] VITALS: BP 110/80; PULSE 118; RESP 18; TEMP 36.2; O2SAT 97
[2022-11-19] MEDS: trazodone 50 mg Tablet PO (22:57)
[2022-11-20 06:00] VITALS: BP 135/75; PULSE 78; RESP 18; TEMP 36.9; O2SAT 98
[2022-11-20] MEDS: tamsulosin 0.4 mg Capsule PO ×2 (07:46→20:34)
[2022-11-20] MEDS: multivitamin therapeutic Tablet 1 TAB PO (07:47)
[2022-11-20] MEDS: quetiapine 25 mg Tablet PO ×2 (07:47→13:09)
--- NOTE | 2022-11-20 07:48 | PC.NURSE ---
refused scheduled Miralax
[2022-11-20] MEDS: ALPRAZolam 0.5 mg Tablet 0.25 MG PO ×2 (12:19→20:20)
--- NOTE | 2022-11-20 13:41 | W.PM.NPUPNS ---
Subjective NPU Subjective: Patient presented today reporting that she is avoiding any voiding issues with the current medication. We discussed the risks, benefits and alternatives of increasing the Seroquel another 50 mg today and see if she tolerates that. She denied any side effects thus far and reports that she is feeling better. Staff reports that she is less giddy and mercurial. Mental Status Exam MSE Comments: This is a well-nourished, well-developed white female in hospital scrubs with limited grooming and eye contact, appearing older than her stated age. No abnormal movements except for mild psychomotor retardation, and occasional odd movements/behaviors noted. Cooperative with exam in mild distress. Her speech was less monotone in quality with normal rate and normal volume. Her mood was described as okay. Her affect was congruent, but odd. Thought process linear. Thought content: She denied suicidal or homicidal ideation, there were no delusions reported and less hyperreligious delusions noted. She denied auditory or visual hallucinations. Attention and concentration were intact and memory appeared unreliable, but none were formally tested. She is alert and oriented to person and place. Her insight and judgment were poor. Her impulse control appeared impaired. Vitals/I&O/Wt Last Vital Signs Temp 98.4 F 11/20/22 06:00 Pulse 78 11/20/22 06:00 Resp 18 11/20/22 06:00 BP 135/75 11/20/22 06:00 Pulse Ox 98 11/20/22 06:00 O2 Del Method Room Air 11/20/22 06:00 Physical Exam Urinary Catheter Management: Bauer: Cath Placed During This Visit: yes Urinary Catheter Date of Insertion: 11/11/22 Urinary Catheter Time of Insertion: 11:00 Data NPU 10/28/22 21:32 10/28/22 21:32 A&P Assessment and plan (1) Psychotic disorder: Plan Patient is a 46-year-old admitted with psychotic symptoms with no prior history but reporting increased stressors over past month with management of demented father. 1.? ?Engage? patient in individual ,milieu, and group therapy ?2. ? Discontinued Abilify and began Haldol increased to 2 mg twice a day orally with Haldol IM to be given if refusal occurs. Discontinued Haldol and now looking for an alternative mood stabilizer. Given urinary retention we will hold antipsychotics for the next couple days. Started patient on Flomax and reintroduced Haldol 1 mg p.o. twice daily for psychosis with return of urinary retention. So we did continue Haldol and will have a trial of Seroquel 25 mg p.o. twice daily. Increased evening dose to 50 mg. Increasing to 50 mg p.o. twice daily and possibly higher bedtime dose. Increased Flomax to twice daily dosing. ?3. ? TO-15 minute checks on the unit. Patient now on 21 day hold. ?4.? Recommend sober living treatment at the highest level of care to which the patient is willing to commit. Involuntary Hold Information 96 Hour Hold: 96 Hour Involuntary Admission: Yes 96 Hour Hold Ending Date: 11/02/22 96 Hour Hold Ending Time: 00:01 Attestations NPU Medical Necessity Statement*: Inpatient hospitalization is medically necessary and deemed to be the clinically appropriate intervention at this time. We will monitor initiate medications while making changes as indicated. The patient's likely length of stay is 2-4 days. Coding Level of Care Code Acute Code for [facility] Diagnoses Psychotic disorder F29
[2022-11-20 14:00] VITALS: BP 101/58; PULSE 112; RESP 17; TEMP 36.8; O2SAT 97
[2022-11-20] MEDS: neomycin-poly-bacitracin oint 28 gm 1 APPLIC TOPICAL (15:26)
[2022-11-20] MEDS: quetiapine 25 mg Tablet 50 MG PO (20:21)
[2022-11-20] MEDS: trazodone 50 mg Tablet PO (21:09)
[2022-11-20] MEDS: hyDROXYzine 25 mg Capsule 50 MG PO (21:09)
[2022-11-20 21:12] VITALS: BP 103/71; PULSE 111; RESP 24; TEMP 36.3; O2SAT 98
[2022-11-21 06:00] VITALS: BP 134/65; PULSE 97; RESP 17; TEMP 36.3; O2SAT 96
--- NOTE | 2022-11-21 06:25 | W.PM.NPUPNS ---
Subjective NPU Subjective: Patient presented today reporting that she is absent any voiding issues with the current medication. She does continue to report having a headache related to the medication but not taking anything for the headache. We discussed that being okay to take something for the headache. She denied any other side effects thus far and reports that she is feeling better. Staff reports that she is less giddy and mercurial. Mental Status Exam MSE Comments: This is a well-nourished, well-developed white female in hospital scrubs with limited grooming and eye contact, appearing older than her stated age. No abnormal movements except for mild psychomotor retardation, and absent occasional odd movements/behaviors. Cooperative with exam in mild distress. Her speech was less monotone in quality with normal rate and normal volume. Her mood was described as better. Her affect was congruent, and less odd. Thought process linear. Thought content: She denied suicidal or homicidal ideation, there were no delusions reported and less hyperreligious delusions noted. She denied auditory or visual hallucinations. Attention and concentration were intact and memory appeared unreliable, but none were formally tested. She is alert and oriented to person and place. Her insight and judgment were poor. Her impulse control appeared impaired. Vitals/I&O/Wt Last Vital Signs Temp 97.4 F L 11/21/22 06:00 Pulse 95 11/21/22 06:00 Resp 17 11/21/22 06:00 BP 134/65 11/21/22 06:00 Pulse Ox 96 11/21/22 06:00 O2 Del Method Room Air 11/21/22 06:00 Physical Exam Urinary Catheter Management: Bauer: Cath Placed During This Visit: yes Urinary Catheter Date of Insertion: 11/11/22 Urinary Catheter Time of Insertion: 11:00 Data NPU 10/28/22 21:32 10/28/22 21:32 A&P Assessment and plan (1) Psychotic disorder: Plan Patient is a 46-year-old admitted with psychotic symptoms with no prior history but reporting increased stressors over past month with management of demented father. 1.? ?Engage? patient in individual ,milieu, and group therapy ?2. ? Discontinued Abilify and began Haldol increased to 2 mg twice a day orally with Haldol IM to be given if refusal occurs. Discontinued Haldol and now looking for an alternative mood stabilizer. Given urinary retention we will hold antipsychotics for the next couple days. Started patient on Flomax and reintroduced Haldol 1 mg p.o. twice daily for psychosis with return of urinary retention. So we did continue Haldol and will have a trial of Seroquel 25 mg p.o. twice daily. Increased evening dose to 50 mg. Increasing to 50 mg p.o. twice daily and consider possibly higher bedtime dose. Increased Flomax to twice daily dosing. ?3. ? TO-15 minute checks on the unit. Patient now on 21 day hold. ?4.? Recommend sober living treatment at the highest level of care to which the patient is willing to commit. Involuntary Hold Information 96 Hour Hold: 96 Hour Involuntary Admission: Yes 96 Hour Hold Ending Date: 11/02/22 96 Hour Hold Ending Time: 00:01 Attestations NPU Medical Necessity Statement*: Inpatient hospitalization is medically necessary and deemed to be the clinically appropriate intervention at this time. We will monitor initiate medications while making changes as indicated. The patient's likely length of stay is 2-4 days. Coding Level of Care Code Acute Code for [facility] [place] Diagnoses Psychotic disorder F29
[2022-11-21] MEDS: multivitamin therapeutic Tablet 1 TAB PO (08:45)
[2022-11-21] MEDS: tamsulosin 0.4 mg Capsule PO ×2 (08:45→20:40)
[2022-11-21] MEDS: quetiapine 25 mg Tablet 50 MG PO ×2 (08:45→20:41)
[2022-11-21] MEDS: ALPRAZolam 0.5 mg Tablet 0.25 MG PO ×2 (10:25→20:40)
[2022-11-21] MEDS: diphenhydrAMINE 50 mg Capsule PO (12:53)
[2022-11-21 14:00] VITALS: BP 113/78; PULSE 95; RESP 17; TEMP 37.2; O2SAT 96
[2022-11-21] MEDS: trazodone 50 mg Tablet PO (20:40)
[2022-11-21] MEDS: hyDROXYzine 25 mg Capsule 50 MG PO (20:40)
[2022-11-21 20:52] VITALS: BP 115/62; PULSE 110; RESP 17; TEMP 36.4; O2SAT 96
[2022-11-22] MEDS: calcium carbonate 500 mg Chew Tablet PO (04:53)
[2022-11-22 06:00] VITALS: BP 110/76; PULSE 96; RESP 18; TEMP 36.9; O2SAT 98
[2022-11-22] MEDS: quetiapine 25 mg Tablet 50 MG PO ×2 (09:21→20:46)
[2022-11-22] MEDS: multivitamin therapeutic Tablet 1 TAB PO (09:21)
[2022-11-22] MEDS: tamsulosin 0.4 mg Capsule PO ×2 (09:21→20:46)
[2022-11-22 14:00] VITALS: BP 98/66; PULSE 95; RESP 16; TEMP 36.8; O2SAT 99
[2022-11-22] MEDS: ALPRAZolam 0.5 mg Tablet 0.25 MG PO (15:39)
--- NOTE | 2022-11-22 18:07 | W.PM.NPUPNS ---
Subjective NPU Subjective: Patient presented today reporting that she is having no significant urinary retention and she is doing better overall. She endorses a willingness to continue the medication and denies side effects including headache. We discussed plan for discharge in the morning. Mental Status Exam MSE Comments: This is a well-nourished, well-developed white female in hospital scrubs with limited grooming and eye contact, appearing older than her stated age. No abnormal movements except for mild psychomotor retardation, and absent occasional odd movements/behaviors. Cooperative with exam in mild distress. Her speech was less monotone in quality with normal rate and normal volume. Her mood was described as better. Her affect was congruent, and less odd. Thought process linear. Thought content: She denied suicidal or homicidal ideation, there were no delusions reported and less hyperreligious delusions noted. She denied auditory or visual hallucinations. Attention and concentration were intact and memory appeared unreliable, but none were formally tested. She is alert and oriented to person and place. Her insight and judgment were poor. Her impulse control appeared impaired. Vitals/I&O/Wt Last Vital Signs Temp 97.8 F 11/22/22 22:00 Pulse 120 H 11/22/22 22:00 Resp 18 11/22/22 22:00 BP 113/79 11/22/22 22:00 Pulse Ox 93 11/22/22 22:00 O2 Del Method Room Air 11/22/22 22:00 11/22/22 11/22/22 11/23/22 14:59 22:59 06:59 Intake Total 0 / 0 Output Total 1200 / 1200 Balance -1200 / -1200 Physical Exam Urinary Catheter Management: Bauer: Cath Placed During This Visit: yes Urinary Catheter Date of Insertion: 11/11/22 Urinary Catheter Time of Insertion: 11:00 Data NPU 10/28/22 21:32 10/28/22 21:32 A&P Assessment and plan (1) Psychotic disorder: Plan Patient is a 46-year-old admitted with psychotic symptoms with no prior history but reporting increased stressors over past month with management of demented father. 1.? ?Engage? patient in individual ,milieu, and group therapy ?2. ? Discontinued Abilify and began Haldol increased to 2 mg twice a day orally with Haldol IM to be given if refusal occurs. Discontinued Haldol and now looking for an alternative mood stabilizer. Given urinary retention we will hold antipsychotics for the next couple days. Started patient on Flomax and reintroduced Haldol 1 mg p.o. twice daily for psychosis with return of urinary retention. So we did continue Haldol and will have a trial of Seroquel 25 mg p.o. twice daily. Increased evening dose to 50 mg. Increasing to 50 mg p.o. twice daily and consider possibly higher bedtime dose. Increased Flomax to twice daily dosing. ?3. ? TO-15 minute checks on the unit. Patient now on 21 day hold. ?4.? Recommend sober living treatment at the highest level of care to which the patient is willing to commit. Involuntary Hold Information 96 Hour Hold: 96 Hour Involuntary Admission: Yes 96 Hour Hold Ending Date: 11/02/22 96 Hour Hold Ending Time: 00:01 Attestations NPU Medical Necessity Statement*: Inpatient hospitalization is medically necessary and deemed to be the clinically appropriate intervention at this time. We will monitor initiate medications while making changes as indicated. The patient's likely length of stay is 1-3 days. Coding Level of Care Code Acute Code for [facility] Fwd Diagnoses Psychotic disorder F29
[2022-11-22] MEDS: trazodone 50 mg Tablet PO (20:45)
[2022-11-22] MEDS: hyDROXYzine 25 mg Capsule 50 MG PO (20:46)
[2022-11-22] MEDS: ibuprofen 600 mg Tablet PO (20:48)
[2022-11-22 22:00] VITALS: BP 113/79; PULSE 120; RESP 18; TEMP 36.6; O2SAT 93
[2022-11-23 06:00] VITALS: BP 114/79; PULSE 99; RESP 17; O2SAT 96
[2022-11-23] MEDS: ALPRAZolam 0.5 mg Tablet 0.25 MG PO (09:14)
[2022-11-23] MEDS: quetiapine 25 mg Tablet 50 MG PO (09:14)
[2022-11-23] MEDS: multivitamin therapeutic Tablet 1 TAB PO (09:14)
[2022-11-23] MEDS: tamsulosin 0.4 mg Capsule PO (09:15)
--- NOTE | 2022-11-23 12:48 | W.PM.NPUDCS ---
Diagnoses at Discharge Discharge Diagnosis (1) Psychotic disorder: Status: Acute Reason for Visit Reason for Visit: si Brief History: History of Present Illness Marialuisa José is a 46 year old female with no prior history of inpatient treatment who had presented to the emergency department via EMS after the patient had been found wandering the streets accompanied by her dog. Patient had reported that she was on her way to [place] by foot to see her family. The patient was involuntarily hospitalized after an affidavit completed by the patient's son had stated that the patient had been having thoughts and expressed a belief that the patient's son was possessed by the devil and after the patient's son had stated that the patient was going to kill her ex-. The patient was admitted to the neuropsychiatric unit for further treatment and evaluation. The patient reports that she has been having increased problems with her thoughts beginning approximately 4 weeks ago as she stated that she felt like something clicked in her head where she started feeling different. The patient had expressed that she is not depressed and does not have thoughts of hurting herself or anyone else. She states that she had been stressed by having her demented father move into her home and had expressed that she was unable to manage his care and that she had been extremely stressed. She had reported having had a feeling in her mind that her son may have been engaged in unholy acts towards her. She had acknowledged that she had often called her ex- Kiesha but stated that she was merely joking. She did state that she had been increasingly suspicious about others but states that she is feeling better and here. She had denied any auditory or visual hallucinations. She had reported having some problems with concentration and states that she had not been taking care of herself very well. When asked about why she had to walk her dog on the highway, the patient was unable to provide a reasonable answer. She did acknowledge that her son had moved outside of the house despite living there as he had also grown tired of the patient's behavior. She had denied any ideas of reference and did not endorse feeling unsafe while on the inpatient unit. The patient was positive for marijuana on urine testing in the emergency department. She had expressed that she had not used marijuana but states that she may have been exposed to it. Past psychiatric history: None reported Allergies: Penicillin, sulfa drugs Medical history: None Surgical history: History of right shoulder repair, history of tonsillectomy Current medications: None Drug and alcohol history: She reported a past history of alcohol use but states that she is not a routine drinker with no history of alcohol withdrawal symptoms. She denied any other drug use at this time. Family psychiatric history: Alcoholism in the father. history: None Social history: The patient lives in [place]. She had been 1 time before in the past. She states that she was born in [facility] and that she had lost her mother when she was only 11 years old. She states that she had been forced to live in a foster home as her father had not been able to take care of her. 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 She had reported no history of trauma. She reported having a recent deep URI for driving under the influence of alcohol. She states having only 1 son who currently lives in the house. Hospital Course Hospital Course She very slowly acclimated to the individual, group and milieu therapies provided.? She presented with significant psychosis. Haldol, Abilify, and Invega was tried all of which helped her psychosis but all of which caused her significant urinary retention. Leading to catheterization on multiple occasions. Ultimately after consultation with urology Flomax was initiated which helped with those 3 medications but not enough to have as standard treatment. Seroquel was initiated and titrated to 50 mg p.o. twice daily with improvement in psychosis without the urinary retention while on Flomax. She had significant improvement during her stay. She worked with the social work team for appropriate aftercare planning.? She was able to contract for safety outside of the hospital prior to discharge.? During the hospitalization, patient had routine laboratory studies which were within normal limits except for few outliers.? Additionally there was a general medical evaluation which was also within normal limits and revealed no new acute processes except for the urinary retention that was induced by antipsychotics. Discharge Summary: At the time of discharge, lethality was denied and psychosis was resolving.? Mood and anxiety were well managed.? Patient endorsed a plan to avoid all drugs of abuse and follow-up with the aftercare recommendations of the treatment team.? Patient was evaluated and deemed to be absent credible lethality, and had achieved the maximum benefit from an inpatient hospitalization, so was discharged. Involuntary Hold Information 96 Hour Hold: 96 Hour Involuntary Admission: Yes 96 Hour Hold Ending Date: 11/02/22 96 Hour Hold Ending Time: 00:01 Mental Status Exam MSE Comments: This is a well-nourished, well-developed white female in hospital scrubs with limited grooming and eye contact, appearing older than her stated age. No abnormal movements except for mild psychomotor retardation, and absent occasional odd movements/behaviors. Cooperative with exam in no acute distress. Her speech was less monotone in quality with normal rate and normal volume. Her mood was described pretty good. Her affect was congruent, and less odd. Thought process linear. Thought content: She denied suicidal or homicidal ideation, there were no delusions reported and less hyperreligious delusions noted. She denied auditory or visual hallucinations. Attention and concentration were intact and memory appeared unreliable, but none were formally tested. She is alert and oriented to person and place. Her insight and judgment were improving. Her impulse control appeared limited, but improving. Physical Exam Urinary Catheter Management: Bauer: Cath Placed During This Visit: yes Urinary Catheter Date of Insertion: 11/11/22 Urinary Catheter Time of Insertion: 11:00 Discharge Data Studies Completed and Pending: Laboratory Results WBC 7.7 10^3/uL (4.0- 10.0) 10/28/22 21:32 RBC 5.21 10^6/uL (4.1 -5.3) 10/28/22 21:32 Hgb 15.2 g/dL (11.5-1 5.3) 10/28/22 21:32 Hct 45.0 % (37.0-47.0 ) 10/28/22 21:32 MCV 86.4 fl (81-99) 10/28/22 21:32 MCH 29.2 pg (28.0-34. 0) 10/28/22 21:32 MCHC 33.8 g/dL (30.0-3 6.0) 10/28/22 21:32 RDW 11.7 % (12.1-15.1 ) L 10/28/22 21:32 Plt Count 220 10^3/cmm (130 -400) 10/28/22 21:32 MPV 10.7 fL (7.4-10.4 ) H 10/28/22 21:32 Neut % (Auto) 66.8 % 10/28/22 21:32 Lymph % (Auto) 23.2 % 10/28/22 21:32 Faulk % (Auto) 9.1 % 10/28/22 21:32 Eos % (Auto) 0.3 % 10/28/22 21:32 Baso % (Auto) 0.3 % 10/28/22 21:32 Neut # (Auto) 5.18 10^3/uL (1.8 -7.7) 10/28/22 21:32 Lymph # (Auto) 1.8 10^3/uL (0.8- 4.8) 10/28/22 21:32 Faulk # (Auto) 0.7 10^3/uL (0.2- 0.9) 10/28/22 21:32 Eos # (Auto) 0.0 10^3/uL (0.0- 0.8) 10/28/22 21:32 Baso # (Auto) 0.0 10^3/uL (0.0- 0.1) 10/28/22 21:32 Nucleated RBC % (a uto) 0 % 10/28/22 21:32 Nucleated RBCs # 0.0 /100WBC 10/28/22 21:32 Sodium 140 mmol/L (136-1 45) 10/28/22 21:32 Potassium 3.8 mmol/L (3.5-5 .1) 10/28/22 21:32 Chloride 104 mmol/L (98-10 7) 10/28/22 21:32 Carbon Dioxide 24 mmol/L (22-29) 10/28/22 21:32 Anion Gap 15.8 (5-19) 10/28/22 21:32 BUN 13 mg/dL (6-20) 10/28/22 21:32 Creatinine 0.8 mg/dL (0.5-0. 9) 10/28/22 21:32 GFR Calculation 77.9 mL/min (90-1 30) L 10/28/22 21:32 Glucose 84 mg/dL (65-115) 10/28/22 21:32 POC Glucose 99 mg/dL (70-110) 11/04/22 11:01 Calculated Osmolal ity 289 mOsm/kg (285- 295) 10/28/22 21:32 Calcium 9.1 mg/dL (8.5-10 .5) 10/28/22 21:32 Total Bilirubin 0.7 mg/dL (0.15-1 .2) 10/28/22 21:32 AST 35 U/L (0-32) H 10/28/22 21:32 ALT 49 U/L (0-33) H 10/28/22 21:32 Alkaline Phosphata se 85 U/L (35-105) 10/28/22 21:32 Total Protein 7.6 g/dL (6.6-8.7 ) 10/28/22 21:32 Albumin 4.6 g/dL (3.5-5.2 ) 10/28/22 21:32 Globulin 3.0 g/dL (1.3-4.6 ) 10/28/22 21:32 TSH 0.78 uIU/mL (0.27 -4.20) 10/28/22 21:32 Urine Color Yellow (Yellow) 10/31/22 18:18 Urine Appearance Clear (CLEAR) 10/31/22 18:18 Urine pH 6 (5-7) 10/31/22 18:18 Ur Specific Gravit y 1.010 (1.005-1.0 30) 10/31/22 18:18 Urine Protein Neg (Negative) 10/31/22 18:18 Urine Glucose (UA) Norm (Normal) 10/31/22 18:18 Urine Ketones Negative (Negati ve) 10/31/22 18:18 Urine Blood Neg (Negative) 10/31/22 18:18 Urine Nitrate Negative (Negati ve) 10/31/22 18:18 Urine Bilirubin Neg (Negative) 10/31/22 18:18 Urine Urobilinogen Norm mg/dL (Negat gini) 10/31/22 18:18 Ur Leukocyte Twila ase Negative (Negati ve) 10/31/22 18:18 Urine RBC 25-40 /hpf (0-2) H 10/28/22 22:39 Urine WBC 0-4 /hpf (0-5) H 10/28/22 22:39 Ur Squamous Epith Cells 10-15 /hpf (0-5) H 10/28/22 22:39 Amorphous Sediment Not Reportable 10/28/22 22:39 Urine Bacteria 1+ /hpf (NONE) H 10/28/22 22:39 Urine Mucus 2+ /hpf 10/28/22 22:39 Salicylates < 0.3 mg/dL (3-10 ) L 10/28/22 21:32 Urine Opiates Scre en Negative ng/mL (N egative) 10/28/22 22:39 Acetaminophen < 5.0 ug/mL (10-3 0) L 10/28/22 21:32 Ur Barbiturates Sc reen Negative ng/mL (N egative) 10/28/22 22:39 Ur Phencyclidine S crn Negative ng/mL (N egative) 10/28/22 22:39 Ur Amphetamines Sc reen Negative ng/mL (N egative) 10/28/22 22:39 U Benzodiazepines Scrn Negative ng/mL (N egative) 10/28/22 22:39 Urine Cocaine Scre en Negative ng/mL (N egative) 10/28/22 22:39 U Marijuana (THC) Screen Positive ng/mL (N egative) H 10/28/22 22:39 Ethyl Alcohol < 10 mg/dL (0-10) 10/28/22 21:32 Vitals: Last Vital Signs Temp 97.8 F 11/22/22 22:00 Pulse 99 11/23/22 06:00 Resp 17 11/23/22 06:00 BP 114/79 11/23/22 06:00 Pulse Ox 96 11/23/22 06:00 O2 Del Method Room Air 11/23/22 06:00 Discharge Plan Discharge Patient Disposition: Home Condition: Stable Prescriptions: New quetiapine 50 mg tablet 50 mg PO BID 30 Days Qty: 60 1RF trazodone 50 mg Tablet 50 mg PO BEDTIME PRN (Reason: Sleep) 30 Days Qty: 30 1RF tamsulosin 0.4 mg Capsule 0.4 mg PO 0900,2100 30 Days Qty: 60 1RF Continued alprazolam 0.25 mg tablet 0.25 mg PO BID PRN (Reason: Anxiety) 30 Days Qty: 60 1RF Discharge Orders: Discharge Order (Routine); Ordered 11/23/22 Ordered By: Kaleb Chen Referrals: [facility] [Other] (call with [facility] [phone] for any insurance questions or concerns.) [facility] [Other] - 11/29/22 10:00 am (Appointment with Connie Kimbrough on 11/29/22 @ 10:00 am.) [facility] [Other] - 12/04/22 4:00 pm (Appointment with Therapist Kun Elizabeth 12/04/22 @ 4:00 pm. ) Discharge Diet: Regular Discharge Activity: Resume usual activity Patient Instructions: Trazodone (By mouth), Tamsulosin (By mouth) (Flomax), Quetiapine (By mouth) (Seroquel, Seroquel XR, Seroquel XR 14-Day..., Depression (DC), Suicide Prevention (DC), Opioid Safety Discharge Attestations NPU Time Spent in Discharge Care*: less than 30 min Specific Discharge Activities: Specific discharge activities: educating patient, discussing with corrections caseworker/social workers/dc planners, documenting/other paperwork and evaluating patient/reviewing data Coding Level of Care Code Acute Chg FW DC note Diagnoses Psychotic disorder F29
[2022-11-23 12:52] VITALS: BP 114/79; PULSE 99; RESP 17; O2SAT 96
[2022-11-23 12:54] VITALS: BP 114/79; PULSE 99; RESP 17; O2SAT 96
== END 2022-11-23 13:56 | disposition home or self-care (01) | DRG 885 ==
LOC: ER 22:57 → NP 23:21
PROVIDERS: Psychiatry & Neurology Psychiatry; Admitting Provider Psychiatry & Neurology Psychiatry; Emergency Provider Family Medicine; Visit Provider Psychiatry & Neurology Psychiatry
DX: F22 Delusional disorders (principal); R33.9 Retention of urine, unspecified
CPT/HCPCS: 36415; 36416; 51702; 51798; 80053; 80306; 80307; 81001; 81003; 82962; 84443; 85025; 93005; 96372; 97150; 97165; 97167; 99238; 99285; J1200; J1630; J2060; Q0163

== ENCOUNTER 2023-03-30 11:58 | Inpatient (IN) | payer MEDICAID, SELFPAY ==
[2023-03-30 11:59] VITALS: BP 144/90; PULSE 111; RESP 18; TEMP 36.8; O2SAT 100; BMI 23.0
--- NOTE | 2023-03-30 12:15 | ED_ITS ---
HPI - Altered Mental Status General: Chief Complaint: Altered Mental Status Stated Complaint: AMS; HALLUCINATIONS Time Seen by Provider: 03/30/23 12:10 History of Present Illness: 47-year-old female presents emergency department via [facility]. Patient was found having strange and bizarre behavior in a public area. She appeared to be talking to people that were not present. She is very hyperactive and has flight of ideas and pressured speech. I did review the patient's previous medical records as she is a poor historian, it does appear that she has been admitted to this hospital several times for acute psychosis. She is moderately difficult to redirect and does not appear to be able to maintain a consistent thought. She denies pain. Review of Systems General: Reports: ROS unobtainable due to medical condition and ROS unobtainable due to mental status Physical Exam Narrative: Constitutional: the patient appeared well nourished and normally developed. Vital signs as documented. Hyperactive, hypermobile, obvious flight of ideas difficult to redirect. She does have pressured speech. HENMT: Head exam is unremarkable. Neck is without jugular venous distension, thyromegaly, or carotid bruits. Carotid upstrokes are brisk bilaterally. Eye: No scleral icterus or corneal arcus noted Resp: Lungs are clear to auscultation and percussion. Cardio: Cardiac exam reveals the PMI to be normally sized and situated. Rhythm is regular. Sinus tachycardia noted. First and second heart sounds normal. No murmurs, rubs or gallops. GI: Abdominal exam reveals normal bowel sounds, no masses, no organomegaly and no aortic enlargement. Soft, nontender to palpation. No obvious palpable ma sses noted. No hepatomegaly appreciated. Extremity: Extremities are non-edematous and both femoral and pedal pulses are normal. Moves all extremities well, she has sensation in all extremities. Neuro: Alert and oriented x4, person, place, time and situation. Cranial nerves II through XII are grossly intact, there is no focal neurological deficits that I can appreciate at present. Motor strength in the upper and lower extremities are equal and bilateral 5/5. Psych: Cooperative at present. Tangential thinking, hyperactive, flight of ideas and pressured speech noted. Skin: No lesions, rashes. Course Vital Signs: Vital signs: Vital Signs Temperature 98.3 F 03/30/23 11:59 Pulse Rate 90 11/04/23 14:49 Respiratory Rate 17 03/30/23 14:49 Blood Pressure 130/71 03/30/23 14:49 Pulse Oximetry 99 03/30/23 14:49 Oxygen Delivery Me thod Room Air 03/30/23 14:49 MDM - Altered Mental Status Medical Decision Making Physical exam completed, laboratory to include a CBC, CMP, alcohol level Tylenol level salicylate level, we will obtain a urinalysis, urine hCG and urine drug screen. I suspect the patient's acute psychosis is secondary to illicit substance. Given her increased hyperactivity and presentation with acute psychosis we will provide her Geodon intramuscular to help her relax and continue to provide her a safe environment. We will contact psychiatry for additional evaluation and possible placement inpatient. Medical Records I reviewed the patient's medical records. Lab Data 03/30/23 14:21 03/30/23 14:21 Laboratory Results HCG, Qual Negative (Negative) 03/30/23 13:26 Urine Color Straw (Yellow) 03/30/23 13:26 Urine Appearance Sl hazy (CLEAR) A 03/30/23 13:26 Urine pH 5 (5-7) 03/30/23 13:26 Ur Specific [place] 1.015 (1.005-1.030) 03/30/23 13:26 Urine Protein Neg (Negative) 03/30/23 13:26 Urine Glucose (UA) Norm (Normal) 03/30/23 13:26 Urine Ketones 1+ (Negative) H 03/30/23 13:26 Urine Blood 2+ (Negative) H 03/30/23 13:26 Urine Nitrate Negative (Negative) 03/30/23 13:26 Urine Bilirubin Neg (Negative) 03/30/23 13:26 Urine Urobilinogen Norm mg/dL (Negative) 03/30/23 13:26 Ur Leukocyte Esterase Negative (Negative) 03/30/23 13:26 Urine RBC 0-4 /hpf (0-2) H 03/30/23 13:26 Urine WBC Rare /hpf (0-5) 03/30/23 13:26 Ur Squamous Epith Cells 10-15 /hpf (0-5) H 03/30/23 13:26 Amorphous Sediment Not Reportable 03/30/23 13:26 Urine Bacteria 2+ /hpf (NONE) H 03/30/23 13:26 Urine Opiates Screen Negative ng/mL (Negative) 03/30/23 13:26 Ur Barbiturates Screen Negative ng/mL (Negative) 03/30/23 13:26 Ur Phencyclidine Scrn Negative ng/mL (Negative) 03/30/23 13:26 Ur Amphetamines Screen Negative ng/mL (Negative) 03/30/23 13:26 U Benzodiazepines Scrn Positive ng/mL (Negative) H 03/30/23 13:26 Urine Cocaine Screen Negative ng/mL (Negative) 03/30/23 13:26 U Marijuana (THC) Screen Positive ng/mL (Negative) H 03/30/23 13:26 No radiology studies performed this visit Discharge Plan Discharge Patient Disposition: Admitted As Inpatient Admit Provider: Kaleb Chen Clinical Impression: Acute psychosis, Substance abuse Condition: Stable Coding Level of Care Code ED Sports Marketing Specialist for Meli Davidson
--- NOTE | 2023-03-30 12:22 | ECG_ITS ---
[facility] Test Date: 2023-03-30 Pat Name: Marialuisa José Department: Room: Gender: Female Soft Sugar Cutter: : 1975 Requested By: Faizan Kinney Order Number: [id number] Huff MD: Mariaelena Long M.D. Measurements Intervals Leroy Rate: 118 P: 74 TN: 139 QRS: 48 QRSD: 82 T: 79 QT: 352 QTc: 494 Interpretive Statements SINUS TACHYCARDIA ABNORMAL RHYTHM ECG Compared to ECG 10/28/2022 22:00:13 Sinus rhythm no longer present Electronically Signed On 03-30-2023 17:52:28 CDT by Mariaelena Long M.D. [email or web address]
--- NOTE | 2023-03-30 12:30 | PC.PHAR ---
RECONCILED MEDS OFF OF CURRENT LIST. UNABLE TO VERIFY WITH [facility] (CLOSED). UNABLE TO VERIFY WITH PATIENT TO TO NON COOPERATION. 03/30/23
[2023-03-30] MEDS: ziprasidone 20 mg/mL SDV 30 MG IM (12:46)
[2023-03-30 13:53] LABS: Add Urine Culture? No; Add Urine Microscopic? YES; Bacteria Urine 2+ /hpf; Bilirubin Urine Neg (Negative); Blood Urine 2+ (Negative); Glucose Urine UA Norm (Normal); Ketones Urine 1+ (Negative); Leukocyte Esterase Urine Negative (Negative); Nitrate Urine Negative (Negative); Protein Urine Neg (Negative); RBC Urine 0-4 /hpf (0-2); Specific Gravity, Urine 1.015 (1.005-1.030); Urine Appearance SL Hazy (CLEAR); Urine Color Straw (Yellow); Urobilinogen Urine Norm (Negative); WBC Urine RARE /hpf (0-5); pH Urine 5 (5-7)
[2023-03-30 13:54] LABS: Amphetamines Screen Urine Negative (Negative); Barbiturates Screen Urine Negative (Negative); Benzodiazepines Screen Urine Positive (Negative); Cocaine Screen Urine Negative (Negative); Opiate Screen Urine Negative (Negative); PCP Screen Urine Negative (Negative); THC Screen Urine Positive (Negative)
[2023-03-30 14:01] LABS: HCG Qualitative Urine. Negative (Negative)
[2023-03-30 14:38] LABS: Basophils % 0.3 %; Eosinophils # 0.1 10^3/uL (0.0-0.8); Eosinophils % 0.6 %; Hematocrit 45.8 % (36-47); Lymphocytes # 2.7 10^3/uL (0.8-4.8); Lymphocytes % 33.5 %; Mean Corpuscular HGB Conc 33.6 g/dL (30-55); Mean Corpuscular Hemoglobin 29.6 pg (27-33); Mean Corpuscular Volume 88.1 fl (85-98); Mean Platelet Volume 10.9 fL (7.4-10.4); Monocytes # 0.6 10^3/uL (0.2-0.9); Monocytes % 7.5 %; Neutrophils # 4.61 10^3/uL (1.8-7.7); Neutrophils % 57.8 %; Nucleated Red Blood Cells % 0 %; Platelet Count 188 10^3/cmm (157-399); Red Cell Distribution Width 11.7 % (12.1-15.1); White Blood Count 7.97 10^3/uL (3.29-11.43)
[2023-03-30 14:49] VITALS: BP 130/71; PULSE 90; RESP 17; O2SAT 99
[2023-03-30 15:01] LABS: Alanine Aminotransferase 32 U/L (0-33); Albumin Level 4.5 g/dL (3.5-5.2); Alkaline Phosphatase 89 U/L (35-105); Anion Gap 14.3 (5-19); Aspartate Amino Transferase 30 U/L (0-32); Blood Urea Nitrogen 13 mg/dL (6-20); Calcium 9.7 mg/dL (8.5-10.5); Carbon Dioxide 24 mmol/L (22-29); Chloride 106 mmol/L (98-107); Globulin 2.9 g/dL (1.3-4.6); Glomerular Filtration Rate 90.5 mL/min (90-130); Glucose 89 mg/dL (65-115); Osmolality Calculated 292 mOsm/kg (285-295); Potassium 3.3 mmol/L (3.5-5.1); Sodium 141 mmol/L (136-145); Total Bilirubin 0.3 mg/dL (0.15-1.2); Total Protein 7.4 g/dL (6.6-8.7)
[2023-03-30 15:02] LABS: Acetaminophen < 5.0 ug/mL (10-30); Alcohol Level < 10 mg/dL (0-10); Salicylate < 0.3 mg/dL (3-10)
[2023-03-30 16:14] VITALS: BP 119/83; PULSE 116; RESP 18; TEMP 36.4; O2SAT 98
--- NOTE | 2023-03-30 16:34 | PC.NURSE ---
Patient resistant to answering questions during admission assessment. Patient's speech is unrelated to current situation. Patient appears to be responding to internal stimuli. Patient needs frequent redirection.
[2023-03-30] MEDS: nicotine 2 mg Gum BUCCAL (19:00)
[2023-03-30] MEDS: trazodone 50 mg Tablet PO ×2 (19:54→21:19)
[2023-03-30] MEDS: hyDROXYzine 25 mg Capsule 50 MG PO (19:54)
[2023-03-30 20:11] VITALS: BP 119/83; PULSE 116; RESP 18; TEMP 36.4; O2SAT 98
--- NOTE | 2023-03-30 20:15 | PC.NURSE ---
THIS NAIL MAKING MACHINE SETTER WAS UP IN THE DAY ROOM COMPLETING AN ASSESSMENT ON ANOTHER PT WHEN ESTEE APPROACHED ME STATING SHE WAS WORRIED. PT WAS TEARFUL AT THIS TIME. THIS NURSE ASKED WHAT SHE WAS WORRIED ABOUT AND PT STATES I AM WORRIED ABOUT MY SON. HE IS THE SON OF GOD AND I AM WORRIED ABOUT HIM . PT HAS ALREADY BEEN GIVEN MEDICATION FOR ANXIETY. THIS NAIL MAKING MACHINE SETTER SUGGESTED SHE WATCH TV AND PT AGREED. PT IS NOW WATCHING TV WITH [employer]ERS.
--- NOTE | 2023-03-31 02:14 | PC.NURSE ---
AT APPROXIMATELY 0100 DAYLIGHT SAVINGS TIME, PATIENT AWOKE AND CAME TO THE DESK RAMBLING IN A SOME-WHAT ENGLISH ACCENT. STATED I NEEDED MY SHOT . PATIENT WAS INFORMED THAT SHOTS ARE NOT GIVEN TO ANY PATIENT JUST BECAUSE A PATIENT REQUESTED ONE. PATIENT HAS BEEN PACING THE HALLWAYS SINGING AND RAMBLING, COMING TO THE DESK A FEW TIMES REQUESTING SOMETHING TO DRINK AND GETTING A PUDDING. PATIENT HAS ALSO BEEN NOTED PACING WITH AND WITHOUT HER BED LINENS.
[2023-03-31] MEDS: OLANZapine 5 mg ODT PO ×2 (02:32→19:44)
--- NOTE | 2023-03-31 02:41 | PC.NURSE ---
PATIENT CONTINUES TO PACE UP AND DOWN THE HALLWAY. ZYPREXA ZYDIS 5MG GIVEN WITH INSTRUCTION TO PLACE IT UNDER HER TONGUE, PATIENT SWALLOWED.
--- NOTE | 2023-03-31 04:30 | PC.NURSE ---
PATIENT CONTINUES TO PACE THE HALLWAYS, UNAFFECTED BY THE ZYPREXA.
[2023-03-31 06:00] VITALS: BP 119/86; PULSE 112; RESP 18; TEMP 36.5; O2SAT 98
--- NOTE | 2023-03-31 07:23 | PC.NURSE ---
During assessment, patient's responses were not appropriate to the questions asked. Patient answered if she was anxious with chase dawson . Patient said i know what's going on. . Further in my assessment, patient stated my hands are pissed. Patient appears to be fatigued. Patient walking the halls, making hand gestures.
--- NOTE | 2023-03-31 07:32 | P.NPUHP_ITS ---
Providers/Chief Complaint Admitting Physician: Kaleb Chen MD Chief Complaint: AMS; HALLUCINATIONS HPI NPU History of Present Illness Marialuisa José is a 47 year old female who presented to the emergency department with the following report: Chief Complaint: Altered Mental Status Stated Complaint: AMS; HALLUCINATIONS Time Seen by Provider: 03/30/23 12:10 History of Present Illness: 47-year-old female presents emergency department via [facility] Department. Patient was found having strange and bizarre behavior in a public area. She appeared to be talking to people that were not present. She is very hyperactive and has flight of ideas and pressured speech. I did [facility] as she is a poor historian, it does appear that she has been admitted to this hospital several times for acute psychosis. She is moderately difficult to redirect and does not appear to be able to maintain a consistent thought. She denies pain. She was admitted to the neuropsychiatric unit for definitive treatment of those issues. She presented today much as she had in her previous hospitalization with significant altered mental status, bizarre behaviors and some aimless/p urposeless behaviors and responses. She is a very poor historian and cannot be taken at her word. Past hospitalization right with difficulty with urinary retention secondary to antipsychotic medication. Need to determine if she was able to continue improving on low-dose Seroquel without any return what happened in the 4 months she has been gone. Little of what she said made sense as she seemed quite disorganized with random speech. Per her 11/23/2022 [facility] inpatient psychiatric discharge summary: si Brief History: History of Present Illness Marialuisa José is a 46 year old female with no prior history of inpatient treatment who had presented to the emergency department via EMS after the patient had been found wandering the streets accompanied by her dog. Patient had reported that she was on her way to [place] by foot to see her family. The patient was involuntarily hospitalized after an affidavit completed by the patient's son had stated that the patient had been having thoughts and expressed a belief that the patient's son was possessed by the devil and after the patient's son had stated that the patient was going to kill her ex-. The patient was admitted to the neuropsychiatric unit for further treatment and evaluation. The patient reports that she has been having increased problems with her thoughts beginning approximately 4 weeks ago as she stated that she felt like something clicked in her head where she started feeling different. The patient had expressed that she is not depressed and does not have thoughts of hurting herself or anyone else. She states that she had been stressed by having her demented father move into her home and had expressed that she was unable to manage his care and that she had been extremely stressed. She had reported having had a feeling in her mind that her son may have been engaged in unholy acts towards her. She had acknowledged that she had often called her ex- Kiesha but stated that she was merely joking. She did state that she had been increasingly suspicious about others but states that she is feeling better and here. She had denied any auditory or visual hallucinations. She had reported having some problems with concentration and states that she had not been taking care of herself very well. When asked about why she had to walk her dog on the highway, the patient was unable to provide a reasonable answer. She did acknowledge that her son had moved outside of the house despite living there as he had also grown tired of the patient's behavior. She had denied any ideas of reference and did not endorse feeling unsafe while on the inpatient unit. The patient was positive for marijuana on urine testing in the emergency department. She had expressed that she had not used marijuana but states that she may have been exposed to it. Past psychiatric history: None reported Allergies: Penicillin, sulfa drugs Medical history: None Surgical history: History of right shoulder repair, history of tonsillectomy Current medications: None Drug and alcohol history: She reported a past history of alcohol use but states that she is not a routine drinker with no history of alcohol withdrawal symptoms. She denied any other drug use at this time. Family psychiatric history: Alcoholism in the father. history: None Social history: The patient lives in [place]. She had been 1 time before in the past. She states that she was born in [facility] [place] and that she had lost her mother when she was only 11 years old. She states that she had been forced to live in a foster home as her father had not been able to take care of her. 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 She had reported no history of trauma. She reported having a recent deep URI for driving under the influence of alcohol. She states having only 1 son who cu rrently lives in the house. Hospital Course She very slowly acclimated to the individual, group and milieu therapies provided. She presented with significant psychosis. Haldol, Abilify, and Invega was tried all of which helped her psychosis but all of which caused her significant urinary retention. Leading to catheterization on multiple occasions. Ultimately after consultation with urology Flomax was initiated which helped with those 3 medications but not enough to have as standard treatment. Seroquel was initiated and titrated to 50 mg p.o. twice daily with improvement in psychosis without the urinary retention while on Flomax. She had significant improvement during her stay. She worked with the social work team for appropriate aftercare planning. She was able to contract for safety outside of the hospital prior to discharge. During the hospitalization, patient had routine laboratory studies which were within normal limits except for few outliers. Additionally there was a general medical evaluation which was also within normal limits and revealed no new acute processes except for the urinary retention that was induced by antipsychotics. Discharge Summary: At the time of discharge, lethality was denied and psychosis was resolving. Mood and anxiety were well managed. Patient endorsed a plan to avoid all drugs of abuse and follow-up with the aftercare recommendations of the treatment team. Patient was evaluated and deemed to be absent credible lethality, and had achieved the maximum benefit from an inpatient hospitalization, so was discharged. Meds NPU Home Medications Medication Instructions Recorded Confirmed Last Taken Type alprazolam 0.25 mg tablet 0.25 mg PO BID PRN Anxiety 30 days 11/23/22 03/30/23 Unknown Rx #60 tabs quetiapine 50 mg tablet 50 mg PO BID 30 days #60 tabs 11/23/22 03/30/23 Unknown Rx tamsulosin 0.4 mg capsule 0.4 mg PO 0900,2100 30 days #60 11/23/22 03/30/23 Unknown Rx caps trazodone 50 mg tablet 50 mg PO BEDTIME PRN Sleep 30 days 11/23/22 03/30/23 Unknown Rx #30 tabs aripiprazole 10 mg tablet 10 mg PO DAILY 03/30/23 03/30/23 Unknown History clonazepam 0.5 mg tablet 0.5 mg PO DAILY 03/30/23 03/30/23 Unknown History duloxetine 30 mg capsule,delayed 30 mg PO DAILY 03/30/23 03/30/23 Unknown History release hydroxyzine pamoate 50 mg capsule 50 mg PO Q6H PRN Anxiety 03/30/23 03/30/23 Unknown History Allergies Allergy/AdvReac Type Severity Reaction Status Date / Time haloperidol [From Haldol] Allergy Unknown Verified 03/30/23 12:03 Penicillins Allergy ALGY-Rash Verified 03/30/23 12:03 Sulfa (Sulfonamide Allergy ALGY-Rash Verified 03/30/23 12:03 Antibiotics) Mental Status Exam MSE Comments: This is a well-nourished, well-developed white female in hospital scrubs with limited grooming and eye contact, appearing older than her stated age. No abnormal movements except for mild agitation as well as some aimless/purposeless behaviors noted. Cooperative with exam in mild distress. Her speech was less monotone in quality with decreased rate and volume with some notable pauses possibly consistent with thought blocking. Her mood was described as ok. Her affect was odd and somewhat giddy. Thought process disorganized. Thought content: She denied suicidal or homicidal ideation, there were no delusions reported or noted. She denied auditory or visual hallucinations but at times appeared like she was responding to internal stimuli. Attention and concentration were impaired and memory appeared mostly unreliable, but none were formally tested. She is alert and oriented to person and place. Her insight was poor. Her judgment was poor. Her impulse control appeared impaired. Vitals/I&O/Wt Last Vital Signs Temp 97.7 F 03/31/23 06:00 Pulse 112 H 03/31/23 06:00 Resp 18 03/31/23 06:00 BP 119/86 03/31/23 06:00 Pulse Ox 98 03/31/23 06:00 O2 Del Method Room Air 03/31/23 06:00 Weight last 48 hrs Weight 61.859 kg Weight 58.967 kg Data NPU 03/31/23 08:28 03/31/23 08:28 A&P Assessment and plan (1) Acute psychosis: (2) Psychotic disorder: (3) Substance abuse: Plan This is a 47-year-old white female presenting with psychosis and bizarre behaviors consistent with her last hospitalization without notable drug use and reporting medication compliance but a very poor historian. 1. Continue current medication. We need to determine the medication she is actually taking. 2. Encourage individual, group and milieu therapies. 3. Continue every 15 checks for safety. 4. Determine whether there is occult drug use. Involuntary Hold Information 96 Hour Hold: 96 Hour Involuntary Admission: No Attestations NPU Medical Necessity Statement*: Inpatient hospitalization is medically necessary and the clinically appropriate intervention at this time. We will monitor initiate medications while making changes as indicated. She will be in the hospital for over 2 midnights. The patient's likely length of stay is 7 -10 days. Coding Level of Care Code Acute Code for g Fwd Diagnoses Acute psychosis F23 Psychotic disorder F29 Substance abuse F19.10
[2023-03-31 08:36] LABS: Basophils % 0.3 %; Eosinophils # 0.1 10^3/uL (0.0-0.8); Eosinophils % 1.2 %; Hematocrit 43.8 % (36-47); Lymphocytes # 3.1 10^3/uL (0.8-4.8); Lymphocytes % 36.2 %; Mean Corpuscular HGB Conc 33.6 g/dL (30-55); Mean Corpuscular Hemoglobin 28.8 pg (27-33); Mean Corpuscular Volume 85.7 fl (85-98); Mean Platelet Volume 10.8 fL (7.4-10.4); Monocytes # 0.7 10^3/uL (0.2-0.9); Monocytes % 7.9 %; Neutrophils # 4.67 10^3/uL (1.8-7.7); Neutrophils % 53.9 %; Nucleated Red Blood Cells % 0 %; Platelet Count 212 10^3/cmm (157-399); Red Blood Count 5.11 10^6/uL (3.85-5.65); Red Cell Distribution Width 11.6 % (12.1-15.1); White Blood Count 8.65 10^3/uL (3.29-11.43)
[2023-03-31 08:59] LABS: Anion Gap 16.5 (5-19); Blood Urea Nitrogen 11 mg/dL (6-20); Calcium 9.6 mg/dL (8.5-10.5); Carbon Dioxide 24 mmol/L (22-29); Chloride 104 mmol/L (98-107); Glomerular Filtration Rate 108.1 mL/min (90-130); Glucose 120 mg/dL (65-115); Osmolality Calculated 293 mOsm/kg (285-295); Potassium 3.5 mmol/L (3.5-5.1); Sodium 141 mmol/L (136-145)
[2023-03-31] MEDS: ziprasidone hcl 20 mg Capsule PO (11:41)
[2023-03-31] MEDS: ziprasidone 20 mg/mL SDV IM (12:01)
[2023-03-31] MEDS: water for injection-sterile 10 ML 1.2 ML (12:02)
[2023-03-31] MEDS: ziprasidone 20 mg/mL SDV (12:02)
--- NOTE | 2023-03-31 12:03 | PC.NURSE ---
Attempted to give patient 20mg PO Geodon, per Dr. Chen for inappropriate behavior and jacqueline. Patient held medication on her tongue and refused to swallow. Patient requested injection. This nurse pulled up the 20mg Geodon injection. Patient was compliant until after the needle was inserted into right deltoid, then patient pulled away, hostile. Patient stated that this nurse lied to her. Patient then tossed her meal lid onto the floor in the dayroom. About 0.5mL of the 1.2mL injection was administered. Patient currently pacing in dayroom, occassionally eating from her tray.
--- NOTE | 2023-03-31 12:20 | PC.NURSE ---
patient walking the bhandari, using a straw as a cigarette
[2023-03-31 13:44] VITALS: BP 132/76; PULSE 113; RESP 18; TEMP 36.4; O2SAT 97
[2023-03-31] MEDS: acetaminophen 325 mg Tablet 650 MG PO (14:27)
[2023-03-31] MEDS: hyDROXYzine 25 mg Capsule 50 MG PO (19:44)
[2023-03-31] MEDS: trazodone 50 mg Tablet PO (19:44)
--- NOTE | 2023-03-31 19:52 | PC.NURSE ---
PATIENT REQUESTING SLEEP MED, WAS NOTED PACING THE HALLWAYS AGAIN ALREADY THIS NIGHT. TRAZODONE 50MG FOR SLEEP GIVEN, VISTARIL 50MG AND ZYPREXA ZYDIS 5MG GIVEN FOR ANXIETY.
[2023-03-31 20:52] VITALS: BP 103/65; PULSE 107; RESP 17; TEMP 36.7; O2SAT 97
--- NOTE | 2023-03-31 21:39 | PC.NURSE ---
PATIENT BACK AWAKE NOW FOR LAST 30 MINUTES, PACING THE HALLWAY.
[2023-04-01] MEDS: ziprasidone hcl 20 mg Capsule PO ×2 (02:49→19:53)
[2023-04-01 06:00] VITALS: BP 106/68; PULSE 97; RESP 18; TEMP 36.4; O2SAT 95
--- NOTE | 2023-04-01 06:31 | PC.NURSE ---
Pt has paced the hallway the majority of the night. Pt remains manic, responding to internal stimuli, as well as dancing in the hallway. Pt has received PRN Sarojdon w/little to no effectiveness. One on one care and redirection continues, has been minimally effect thus far. Behavior monitoring continues.
[2023-04-01] MEDS: quetiapine 25 mg Tablet 50 MG PO ×2 (08:29→17:41)
[2023-04-01] MEDS: nicotine 2 mg Gum BUCCAL ×2 (09:34→13:15)
--- NOTE | 2023-04-01 10:57 | W.PM.NPUPNS ---
Subjective NPU Subjective: Patient presented today reporting that she was doing okay. She denied any problems with the restarting of the Seroquel including denying any urinary retention. She did seem slightly less aimless per staff reports and direct examination. She continued to be limited by apparent thought blocking during direct communication. Mental Status Exam MSE Comments: This is a well-nourished, well-developed white female in hospital scrubs with limited grooming and eye contact, appearing older than her stated age. No abnormal movements except for mild agitation as well as some aimless/purposeless behaviors noted. Cooperative with exam in mild distress. Her speech was monotone in quality with decreased rate and volume with some notable pauses possibly consistent with thought blocking. Her mood was described as ok. Her affect was odd and somewhat giddy. Thought process disorganized. Thought content: She denied suicidal or homicidal ideation, there were no delusions reported or noted. She denied auditory or visual hallucinations but at times appeared like she was responding to internal stimuli. Attention and concentration were impaired and memory appeared mostly unreliable, but none were formally tested. She is alert and oriented to person and place. Her insight was poor. Her judgment was poor. Her impulse control appeared impaired. Vitals/I&O/Wt Last Vital Signs Temp 97.5 F L 04/01/23 06:00 Pulse 97 04/01/23 06:00 Resp 18 04/01/23 06:00 BP 106/68 04/01/23 06:00 Pulse Ox 95 04/01/23 06:00 O2 Del Method Room Air 04/01/23 06:00 03/31/23 04/01/23 04/01/23 22:59 06:59 14:59 Intake Total Balance Weight last 48 hrs Weight 61.859 kg Weight 58.967 kg Data NPU 03/31/23 08:28 03/31/23 08:28 A&P Assessment and plan (1) Acute psychosis: (2) Psychotic disorder: (3) Substance abuse: Plan This is a 47-year-old white female presenting with psychosis and bizarre behaviors consistent with her last hospitalization without notable drug use and reporting medication compliance but a very poor historian. 1. Continue current medication. We need to determine the medication she is actually taking. Restarted Seroquel 50 mg p.o. twice daily. Monitor for urinary retention. 2. Encourage individual, group and milieu therapies. 3. Continue every 15 checks for safety. 4. Determine whether there is occult drug use. Involuntary Hold Information 96 Hour Hold: 96 Hour Involuntary Admission: No Attestations NPU Medical Necessity Statement*: Inpatient hospitalization is medically necessary and the clinically appropriate intervention at this time. We will monitor initiate medications while making changes as indicated. The patient's likely length of stay is 6-9 days. Coding Level of Care Code Acute Code for [facility] Fw Diagnoses Acute psychosis F23 Psychotic disorder F29 Substance abuse F19.10
[2023-04-01 14:00] VITALS: BP 122/81; PULSE 87; RESP 16; TEMP 36.4; O2SAT 98
[2023-04-01] MEDS: trazodone 50 mg Tablet PO (19:53)
[2023-04-01 20:09] VITALS: BP 118/75; PULSE 124; RESP 18; TEMP 36.5; O2SAT 99
--- NOTE | 2023-04-02 00:28 | PC.NURSE ---
This tech tried to talk to patient as she was pacing up and down the halls in what appeared to be a delusion state. Once speaking with patient and offering medication patient continued to talk in a delusion state and unable to obtain answer/redirect patient.
[2023-04-02] MEDS: diphenhydrAMINE 50 mg Capsule PO ×2 (00:32→22:39)
[2023-04-02] MEDS: LORazepam 2 mg Tablet PO ×2 (00:32→22:39)
[2023-04-02 06:00] VITALS: RESP 16
--- NOTE | 2023-04-02 06:28 | PC.NURSE ---
Due to patient delusional state in the middle of the night, patient was given medication to help patient sleep. Vitals were not obtained however RR was
[2023-04-02] MEDS: quetiapine 25 mg Tablet 50 MG PO ×2 (09:57→17:55)
[2023-04-02 13:38] VITALS: BP 126/85; PULSE 126; RESP 18; TEMP 36.6; O2SAT 96
--- NOTE | 2023-04-02 15:09 | PC.NURSE ---
Talking at the nurses desk, Pt stated I think he works for [employer]....... When asked who?.... Pt replied 3 oclock. Pt not able to make sense when having conversations.
--- NOTE | 2023-04-02 18:27 | P.NPUPN_ITS ---
Subjective NPU Subjective: Patient presented today essentially unchanged per reports and direct evaluation. Patient was unable to really communicate effectively having continued aimless and purposeless behavior that seem to have some meaning to her. At times she got tearful in the discussion but could not clarify why. She had odd hand gestures and behavior patterns which again she could not explain. She talked ab out her family and answered questions but it was unclear whether she really understood what was being said. We discussed slowly titrating her Seroquel and monitoring for urinary retention given that history and her last hospitalization. Mental Status Exam MSE Comments: This is a well-nourished, well-developed white female in hospital scrubs with limited grooming and eye contact, appearing older than her stated age. No abnormal movements except for mild agitation as well as some aimless/purposeless behaviors noted. Cooperative with exam in mild distress. Her speech was monotone in quality with decreased rate and volume with some notable pauses possibly consistent with thought blocking. Her mood was described as ok. Her affect was odd and somewhat giddy. Thought process disorganized. Thought content: She denied suicidal or homicidal ideation, there were no delusions reported or noted. She denied auditory or visual hallucinations but at times appeared like she was responding to internal stimuli. Attention and concentration were impaired and memory appeared mostly unreliable, but none were formally tested. She is alert and oriented to person and place. Her insight was poor. Her judgment was poor. Her impulse control appeared impaired. Vitals/I&O/Wt Last Vital Signs Temp 97.9 F 04/02/23 13:38 Pulse 126 H 04/02/23 13:38 Resp 18 04/02/23 13:38 BP 126/85 04/02/23 13:38 Pulse Ox 96 04/02/23 13:38 O2 Del Method Room Air 04/02/23 13:38 Data NPU 03/31/23 08:28 03/31/23 08:28 A&P Assessment and plan (1) Acute psychosis: (2) Psychotic disorder: (3) Substance abuse: Plan This is a 47-year-old white female presenting with psychosis and bizarre behaviors consistent with her last hospitalization without notable drug use and reporting medication compliance but a very poor historian. 1. Continue current medication. We need to determine the medication she is actually taking. Restarted Seroquel 50 mg p.o. twice daily. Monitor for urinary retention. 2. Encourage individual, group and milieu therapies. 3. Continue every 15 checks for safety. 4. Determine whether there is occult drug use. Involuntary Hold Information 96 Hour Hold: 96 Hour Involuntary Admission: No Attestations NPU Medical Necessity Statement*: Inpatient hospitalization is medically necessary and the clinically appropriate intervention at this time. We will monitor initiate medications while making changes as indicated. The patient's likely length of stay is 6-9 days. Coding Level of Care Code Acute Code for [facility] Fwd Diagnoses Acute psychosis F23 Psychotic disorder F29 Substance abuse F19.10
[2023-04-02] MEDS: nicotine 2 mg Gum BUCCAL (19:41)
[2023-04-02] MEDS: ziprasidone hcl 20 mg Capsule PO (19:41)
[2023-04-02 19:57] VITALS: BP 122/76; PULSE 120; RESP 17; TEMP 36.3; O2SAT 99
[2023-04-03 06:00] VITALS: BP 91/66; PULSE 101; RESP 16; TEMP 36.4; O2SAT 99
--- NOTE | 2023-04-03 08:23 | PC.NURSE ---
During morning assessment, patient denies all. Patient appears to be fatigued. Patient reports getting good sleep last night. Patient's behavior indicates that she is responding to internal stimuli.
[2023-04-03] MEDS: quetiapine 100 mg Tablet PO (08:35)
--- NOTE | 2023-04-03 09:33 | PC.NURSE ---
Patient stated to this nurse that seroquel makes her mad, patient states that she calls it serohell .
[2023-04-03] MEDS: nicotine 2 mg Gum BUCCAL ×4 (09:45→18:59)
--- NOTE | 2023-04-03 10:27 | PC.NURSE ---
Patient talking to this nurse, talking about people that put her in here. Patient paranoid. Patient's speech is tangetial.
--- NOTE | 2023-04-03 12:11 | P.NPUPN_ITS ---
Subjective NPU Subjective: Patient presented today reporting to be fine but continuing to be aimless and purposeless in her behaviors. Doing things like putting her cup on her head and walking down the hallway with her cup overhead or shaking the ice near her ear and attempting to make a sound consistent with that sound. Other strange behaviors reported and noted in interview. Denying any urinary retention and we discussed increasing the Seroquel and a 96-hour hold given her severe inability to make informed consent. Mental Status Exam MSE Comments: This is a well-nourished, well-developed white female in hospital scrubs with limited grooming and eye contact, appearing older than her stated age. No abnormal movements except for mild agitation as well as some aimless/purposeless behaviors noted. Cooperative with exam in mild distress. Her speech was monotone in quality with decreased rate and volume with some notable pauses possibly consistent with thought blocking. Her mood was described as ok. Her af fect was odd and somewhat giddy. Thought process disorganized. Thought content: She denied suicidal or homicidal ideation, there were no delusions reported or noted. She denied auditory or visual hallucinations but at times appeared like she was responding to internal stimuli. Attention and con centration were impaired and memory appeared mostly unreliable, but none were formally tested. She is alert and oriented to person and place. Her insight was poor. Her judgment was poor. Her impulse control appeared impaired. Vitals/I&O/Wt Last Vital Signs Temp 97.5 F L 04/03/23 06:00 Pulse 101 H 04/03/23 06:00 Resp 16 04/03/23 06:00 BP 91/66 04/03/23 06:00 Pulse Ox 99 04/03/23 06:00 O2 Del Method Room Air 04/03/23 06:00 Data NPU 03/31/23 08:28 03/31/23 08:28 A&P Assessment and plan (1) Acute psychosis: (2) Psychotic disorder: (3) Substance abuse: Plan This is a 47-year-old white female presenting with psychosis and bizarre behaviors consistent with her last hospitalization without notable drug use and reporting medication compliance but a very poor historian. 1. Continue current medication. We need to determine the medication she is actually taking. Restarted Seroquel 50 mg p.o. twice daily. Increase to 50 mg in the morning and 100 mg at night. Monitor for urinary retention. 2. Encourage individual, group and milieu therapies. 3. Continue every 15 checks for safety. 4. Determine whether there is occult drug use. 5. 96-hour hold initiated. Involuntary Hold Information 96 Hour Hold: 96 Hour Involuntary Admission: No Attestations NPU Medical Necessity Statement*: Inpatient hospitalization is medically necessary and the clinically appropriate intervention at this time. We will monitor initiate medications while making changes as indicated. The patient's likely length of stay is 6-9 days. Coding Level of Care Code Acute Code for g Fwd Diagnoses Acute psychosis F23 Psychotic disorder F29 Substance abuse F19.10
--- NOTE | 2023-04-03 13:52 | PC.NURSE ---
This RN presented patient her 96 hour hold paperwork. When attempting to read the paperwork to her and explain it the patient stated, give me that, and took the paper. This RN told her she was welcome to read the paperwork if she would rather do that and then we could answer any questions she may have. Patient then took the paper, walked it to the nurses' station, shoved it through the window, and stated, you can have this back, in a very agitated tone. She was informed that we could go over it with her again at any time she would like us to.
[2023-04-03 14:00] VITALS: BP 123/65; PULSE 111; RESP 15; TEMP 36.6; O2SAT 97
--- NOTE | 2023-04-03 18:22 | PC.NURSE ---
Patient talking to herself very quickly and making hand motions as if she were dialing a telephone in her hand. This RN asked how she was doing and she yelled, Emjorge luisooooo! She then began dancing down the hallway and asked, so are you back together? Together foreverrrr?
[2023-04-03] MEDS: LORazepam 2 mg Tablet PO (20:07)
[2023-04-03] MEDS: ziprasidone hcl 20 mg Capsule PO (20:07)
--- NOTE | 2023-04-03 20:10 | PC.NURSE ---
PT REFUSED SEROQUEL 100 MG STATTES IT MAKES ME FEEL LIKE I'M IN HELL. PT BEGAN TO BE AGITATED WHILE ON PHONE, BANGING PHONE AND YELLING. PT WAS REDIRECTED MULTIPLE TIMES WITH NO RESOLVE. PT WAS OFFERED GEODON AND ATIVAN AND ACCEPTED. STATES SHE CAN'T TAKE HALDOL BECAUSE IT MAKES MY KIDNEYS SHUT DOWN. PT WAS EDUCATED ON MEDICATIONS RECEIVED. PT WAS GIVEN GEODON 20 MG AND ATIVAN 2 MG ORDERED FOR EXTREME ANXIETY AND AGITATION. PT TOOK THE MEDS AND THEN WALKED TO HER ROOM MAKING ODD STATEMENTS ABOUT HER DR. YVETTE FUENTES, THEN SAID PLEASE AND THANK YOU AND WENT TO ROOM.
[2023-04-03 21:24] VITALS: BP 144/90; PULSE 120; RESP 17; TEMP 36.8; O2SAT 96
--- NOTE | 2023-04-03 21:52 | PC.NURSE ---
PT MEDICATED FOR AGITATION AND HITTING PHONE AND YELLING AT STAFF AT BEGINNING OF SHIFT. PT DENIES SI/HI AND AVH. PT IS OBERVED RESPONDING TO INTERNAL AND EXTERNAL STIMULI. PT PACES THE HALLS. PT DID EVENTUALLY CALM DOWN. PT CONTINUES TO BE AWAKE AND IS CURRENTLY WATCHING TV IN THE DAY ROOM. SUPPORT VOICED.
--- NOTE | 2023-04-04 05:38 | PC.NURSE ---
PT WENT TO BED AT APPROXIMATELY 2300 AND SLEPT UNTIL 430 AM, GIVING HER APPROXIMATELY 5 AND HALF HOURS. PT HAS BEEN UP SINCE PACING HALLWAYS SPEAKING TO HERSELF AND OBSERVED BEING DELUSIONAL. PT IS OBSERVED WAVING HANDS IN THE AIR, AND WAVING A BIBLE IN THE AIR MUMBLING TO SELF. PT REDIRECTED WITH NO RESOLVE. PT CONTINUES TO PACE AND HAVING DELUSIONS.
[2023-04-04 06:00] VITALS: BP 110/78; PULSE 98; RESP 18; O2SAT 100
--- NOTE | 2023-04-04 07:52 | PC.NURSE ---
During morning assessment, patient reported some anxiety. Patient did not want any medication to help with this. Patient denies SI, HI, AVH, and depression. Patient appears to be responding to internal stimuli. Cooperative during assessment, talking with another patient.
[2023-04-04] MEDS: ziprasidone hcl 20 mg Capsule PO (07:55)
[2023-04-04] MEDS: quetiapine 100 mg Tablet PO ×2 (07:55→19:50)
[2023-04-04] MEDS: nicotine 2 mg Gum BUCCAL ×5 (07:55→20:30)
[2023-04-04 14:00] VITALS: BP 111/74; PULSE 84; RESP 17; TEMP 36.6; O2SAT 99
[2023-04-04] MEDS: OLANZapine 5 mg ODT PO (15:01)
--- NOTE | 2023-04-04 15:37 | P.NPUPN_ITS ---
Subjective NPU Subjective: Patient presented today reporting that she is tolerating the changes in her medication but still being quite disorganized per staff and direct examination. She continues to have odd behaviors like walking with shared services representative on top of her head and making odd gestures with her hands that she cannot explain the reason for the behaviors. Mental Status Exam MSE Comments: This is a well-nourished, well-developed white female in hospital scrubs with limited grooming and eye contact, appearing older than her stated age. No abnormal movements except for mild agitation as well as some aimless/purposeless behaviors noted. Cooperative with exam in mild distress. Her speech was monotone in quality with decreased rate and volume with some notable pauses possibly consistent with thought blocking. Her mood was described as ok. Her affect was odd and somewhat giddy. Thought process disorganized. Thought content: She denied suicidal or homicidal ideation, there were no delusions reported or noted. She denied auditory or visual hallucinations but at times appeared like she was responding to internal stimuli. Attention and concentration were impaired and memory appeared mostly unreliable, but none were formally tested. She is alert and oriented to person and place. Her insight was poor. Her judgment was poor. Her impulse control appeared impaired. Vitals/I&O/Wt Last Vital Signs Temp 98.2 F 04/04/23 20:01 Pulse 124 H 04/04/23 20:01 Resp 18 04/04/23 20:01 BP 101/66 04/04/23 20:01 Pulse Ox 95 04/04/23 20:01 O2 Del Method Room Air 04/04/23 20:01 Data NPU 03/31/23 08:28 03/31/23 08:28 A&P Assessment and plan (1) Acute psychosis: (2) Psychotic disorder: (3) Substance abuse: Plan This is a 47-year-old white female presenting with psychosis and bizarre behaviors consistent with her last hospitalization without notable drug use and reporting medication compliance but a very poor historian. 1. Continue current medication. We need to determine the medication she is actually taking. Restarted Seroquel 50 mg p.o. twice daily. Increase to 50 mg in the morning and 100 mg at night. Monitor for urinary retention. 2. Encourage individual, group and milieu therapies. 3. Continue every 15 checks for safety. 4. Determine whether there is occult drug use. 5. 96-hour hold initiated. Hold to end 04/09/2023. Involuntary Hold Information 96 Hour Hold: 96 Hour Involuntary Admission: No Attestations NPU Medical Necessity Statement*: Inpatient hospitalization is medically necessary and the clinically appropriate intervention at this time. We will monitor initiate medications while making changes as indicated. The patient's likely length of stay is 6-9 days. Coding Level of Care Code Acute Code for g Fwd Diagnoses Acute psychosis F23 Psychotic disorder F29 Substance abuse F19.10
--- NOTE | 2023-04-04 17:36 | PC.NURSE ---
patient up and around the unit, pacing the bhandari, sitting on bench, going to room, etc. Patient appears to be fatigued. Patient was given Zyprexa around 1500 and has since said thank you for that medicine, it helped me a lot
[2023-04-04] MEDS: trazodone 50 mg Tablet PO ×2 (19:50→20:54)
[2023-04-04 20:01] VITALS: BP 101/66; PULSE 124; RESP 18; TEMP 36.8; O2SAT 95
--- NOTE | 2023-04-04 20:03 | PC.NURSE ---
THIS NURSE WAS GIVING PT NIGHT MEDS AND PT PUT THEM IN HER MOUTH AND FINALLY SWALLOWED THEM. AFTERWARDS PT FLIPPED THIS NURSE OFF AND CALLED ME A BITCH . PT WALKED AWAY FROM NURSES STATION DOWN THE HALLWAY.
[2023-04-05] MEDS: LORazepam 2 mg Tablet PO (04:50)
[2023-04-05 06:00] VITALS: BP 109/73; PULSE 100; RESP 15; TEMP 36.7; O2SAT 100
[2023-04-05] MEDS: nicotine 2 mg Gum BUCCAL ×3 (08:42→18:17)
[2023-04-05] MEDS: ARIPiprazole 10 mg Tablet 5 MG PO (11:49)
[2023-04-05 14:00] VITALS: BP 109/77; PULSE 121; RESP 16; TEMP 37.2; O2SAT 97
--- NOTE | 2023-04-05 17:17 | P.NPUPN_ITS ---
Subjective NPU Subjective: Patient presented today continuing to have odd aimless behaviors. She had been refusing her Seroquel saying now that it causes her restless legs and so we agreed to a trial of Abilify again once again discussing the risk benefits and alternatives she seemed to understand and agreed to proceed as documented in this note. We discussed monitoring her for urinary retention. Mental Status Exam MSE Comments: This is a well-nourished, well-developed white female in hospital scrubs with limited grooming and eye contact, appearing older than her stated age. No abnormal movements except for mild agitation as well as some aimless/purposeless behaviors noted. Cooperative with exam in mild distress. Her speech was monotone in quality with decreased rate and volume with some notable pauses poss ibly consistent with thought blocking. Her mood was described as ok. Her affect was odd and somewhat giddy. Thought process disorganized. Thought content: She denied suicidal or homicidal ideation, there were no delusions reported or noted. She denied auditory or visual hallucinations but at times appeared like she was responding to internal stimuli. Attention and concentration were impaired and memory appeared mostly unreliable, but none were formally tested. She is alert and oriented to person and place. Her insight was poor. Her judgment was poor. Her impulse control appeared impaired. Vitals/I&O/Wt Last Vital Signs Temp 99 F 04/05/23 14:00 Pulse 121 H 04/05/23 14:00 Resp 16 04/05/23 14:00 BP 109/77 04/05/23 14:00 Pulse Ox 97 04/05/23 14:00 O2 Del Method Room Air 04/05/23 14:00 Data NPU 03/31/23 08:28 03/31/23 08:28 A&P Assessment and plan (1) Acute psychosis: (2) Psychotic disorder: (3) Substance abuse: Plan This is a 47-year-old white female presenting with psychosis and bizarre behaviors consistent with her last hospitalization without notable drug use and reporting medication compliance but a very poor historian. 1. Continue current medication. We need to determine the medication she is actually taking. Restarted Seroquel 50 mg p.o. twice daily. Increase to 50 mg in the morning and 100 mg at night. Monitor for urinary retention. Patient now refusing antipsychotics. She says she would take Abilify 5 mg. We will monitor for adherence. 2. Encourage individual, group and milieu therapies. 3. Continue every 15 checks for safety. 4. Determine whether there is occult drug use. 5. 96-hour hold initiated. Hold to end 04/10/2023. Involuntary Hold Information 96 Hour Hold: 96 Hour Involuntary Admission: No Attestations NPU Medical Necessity Statement*: Inpatient hospitalization is medically necessary and the clinically appropriate intervention at this time. We will monitor initiate medications while making changes as indicated. The patient's likely length of stay is 6-9 days. Coding Level of Care Code Acute Code for g Fwd Diagnoses Acute psychosis F23 Psychotic disorder F29 Substance abuse F19.10
[2023-04-05] MEDS: ziprasidone hcl 20 mg Capsule PO (20:02)
[2023-04-05 20:09] VITALS: BP 112/71; PULSE 118; RESP 18; TEMP 37; O2SAT 96
--- NOTE | 2023-04-05 20:22 | PC.NURSE ---
PT IN ROOM OBSERVED SPEAKING TO SELF. PT DENIES PAIN, SI/HI AND AVH AT THIS TIME. PT CONTINUES TO BE DELUSIONAL AND RESPONDING TO INTERNAL STIMULI. PT REFUSES NIGHT TIME DOSE OF SEROQUEL STATING I KEEP TELLING YOU I'M NOT TAKING THAT IT MAKES ME FEEL LIKE IM IN HELL. PT WAS GIVEN GEODON ORDERED FOR INCREASED EPISODES OF ANXIETY. NOTIFIED DR. WOODS OF PT REFUSAL OF SEROQUEL, NO NEW ORDERS WERE RECEIVED. PT IS OBSERVED DANCING IN THE HALLS AT TIMES AND REACHING UP IN THE AIR IF SHE IS GRABBING SOMETHING, BUT NOTHING IS THERE. REPORTS ANXIETY 4/10 AND DEPRESSION 0/10. ALL QUESTIONS ANSWERED AND SUPPORT VOICED.
[2023-04-06 06:00] VITALS: RESP 16
[2023-04-06] MEDS: ARIPiprazole 10 mg Tablet 5 MG PO (07:24)
[2023-04-06] MEDS: quetiapine 100 mg Tablet PO (07:24)
--- NOTE | 2023-04-06 09:26 | P.NPUPN_ITS ---
Subjective NPU Subjective: Patient presented today reporting that she is doing okay. Outside of those words she did not say much. She continues to have aimless/purposeless behavior and movements. As she was eating breakfast she was making sort of dancing or rhythmic movements and shaking her head oddly as she was eating and making gestures into the air seemingly with no clear reasoning. She did take her medication this morning and denied any urinary retention. Mental Status Exam MSE Comments: This is a well-nourished, well-developed white female in hospital scrubs with limited grooming and eye contact, appearing older than her stated age. No abnormal movements except for mild agitation as well as some aimless/purposeless behaviors noted. Cooperative with exam in mild distress. Her speech was monotone in quality with decreased rate and volume with some notable pauses possibly consistent with thought blocking. Her mood was described as ok. Her affect was odd and somewhat giddy. Thought process disorganized. Thought content: She denied suicidal or homicidal ideation, there were no delusions reported or noted. She denied auditory or visual hallucinations but at times appeared like she was responding to internal stimuli. Attention and concentration were impaired and memory appeared mostly unreliable, but none were formally tested. She is alert and oriented to person and place. Her insight w as poor. Her judgment was poor. Her impulse control appeared impaired. Vitals/I&O/Wt Last Vital Signs Temp 98.6 F 04/05/23 20:09 Pulse 118 H 04/05/23 20:09 Resp 16 04/06/23 06:00 BP 112/71 04/05/23 20:09 Pulse Ox 96 04/05/23 20:09 O2 Del Method Room Air 04/05/23 20:09 Data NPU 03/31/23 08:28 03/31/23 08:28 A&P Assessment and plan (1) Acute psychosis: (2) Psychotic disorder: (3) Substance abuse: Plan This is a 47-year-old white female presenting with psychosis and bizarre behaviors consistent with her last hospitalization without notable drug use and reporting medication compliance but a very poor historian. 1. Continue current medication. We need to determine the medication she is actually taking. Restarted Seroquel 50 mg p.o. twice daily. Increase to 50 mg in the morning and 100 mg at night. Monitor for urinary retention. Patient now refusing antipsychotics. She says she would take Abilify 5 mg. We will monitor for adherence. Patient taking medication. We will discontinue Seroquel. 2. Encourage individual, group and milieu therapies. 3. Continue every 15 checks for safety. 4. Determine whether there is occult drug use. 5. 96-hour hold initiated. Hold to end 04/10/2023. Involuntary Hold Information 96 Hour Hold: 96 Hour Involuntary Admission: No Attestations NPU Medical Necessity Statement*: Inpatient hospitalization is medically necessary and the clinically appropriate intervention at this time. We will monitor initiate medications while making changes as indicated. The patient's likely length of stay is 6-9 days. Coding Level of Care Code Acute Code for [facility] Fwd Diagnoses Acute psychosis F23 Psychotic disorder F29 Substance abuse F19.10
--- NOTE | 2023-04-06 09:58 | PC.NURSE ---
PT CURRENTLY DENIES SI/HI/AH/VH. HOWEVER, PT CONTINUES TO APPEAR TO RESPOND TO INTERNAL STIMULI. PT HAS BIZARRE BEHAVIOR WHICH INCLUDES DANCING, GESTURING AT RANDOM, AND MUMBLING TO HERSELF. PT CURRENTLY DENIES ANY NEEDS AT THIS TIME. PHYSICIAN AWARE OF BEHAVIORS.
[2023-04-06] MEDS: OLANZapine 5 mg ODT PO (10:29)
[2023-04-06 14:00] VITALS: BP 112/77; PULSE 112; RESP 20; TEMP 36.7; O2SAT 97
[2023-04-06] MEDS: nicotine 2 mg Gum BUCCAL ×2 (15:48→18:06)
[2023-04-06 20:11] VITALS: BP 130/80; PULSE 85; RESP 15; TEMP 36.6; O2SAT 97
[2023-04-06] MEDS: hyDROXYzine 25 mg Capsule 50 MG PO (20:17)
[2023-04-06] MEDS: trazodone 50 mg Tablet PO (20:17)
--- NOTE | 2023-04-06 20:33 | PC.NURSE ---
IN ROOM REPORTS HAVING INCREASED ANXIETY RATING IT 8/10, VISTARIL 50 MG WAS GIVEN ORDERED. PT WAS EDUCATED THAT IF THE MEDICATION DOES NOT WORK TO LET STAFF KNOW SO FURTHER INTERVENTIONS CAN BE DONE. PT AGREED. PT DENIES PAIN. DENIES SI/HI AND AVH. REPORTS DEPRESSION 0/10, STATES I'M JUST REALLY ANXIOUS. PT REQUESTED MEDICATION TO HELP HER SLEEP WELL. TRAZODONE 50 MG WAS GIVEN FOR INSOMNIA. PT WAS CALM AND COOPERATIVE, CONTINUES TO HAVE DELUSIONS AND PICKING IN THE AIR AT TIMES. ALL QUESTIONS ANSWERED AND SUPPORT VOICED.
[2023-04-07] MEDS: OLANZapine 5 mg ODT PO (01:36)
[2023-04-07] MEDS: trazodone 50 mg Tablet PO ×2 (01:36→20:56)
--- NOTE | 2023-04-07 01:38 | PC.NURSE ---
PT WOKE UP CAME TO NURSES STATION MUMBLING AND TALKING WITH HER HANDS. UNABLE TO UNDERSTAND PT. PT WAS GIVEN SOME WATER. PT CONTINUES BRITNEY GRUNT, POINT AND MUMBLE. PT WENT BACK TO ROOM, THEN BACK UP TO NURSES STATION MUMBLING AGAIN AND TALKING WITH HANDS. PT FINALLY AGREED TO TAKE MEDICATIONS FOR ANXIETY AND SLEEP. PT WAS GIVEN SECOND DOSE OF TRAZODONE 50 MG ORDERED FOR INSOMNIA AND ZYDIS 5 MG FOR INCREASED ANXIETY AND AGITATION. PT TOOK MEDS AND WALKED TO DAY ROOM WHERE SHE WAS OBSERVED ON [place] DANCING AND PICKING STUFF OUT OF THE AIR THAT IS NOT THERE. SUPPORT VOICED.
[2023-04-07 06:00] VITALS: BP 149/74; PULSE 107; RESP 15; TEMP 36.9; O2SAT 97
[2023-04-07] MEDS: nicotine 21 mg Patch 1 PATCH TRANSDERMA (07:25)
[2023-04-07] MEDS: ARIPiprazole 10 mg Tablet 5 MG PO (08:33)
--- NOTE | 2023-04-07 08:53 | W.PM.NPUPNS ---
Subjective NPU Subjective: Patient presented today with limited speech and continued aimless and odd behavior. Continues to have weird ingestion of no clear purpose and limited spontaneous speech per staff reports and direct observation. She has not complained of urinary retention. Mental Status Exam MSE Comments: This is a well-nourished, well-developed white female in hospital scrubs with limited grooming and eye contact, appearing older than her stated age. No abnormal movements except for mild agitation as well as some aimless/purposeless behaviors noted. Cooperative with exam in mild distress. Her speech was monotone in quality with decreased rate and volume with some notable pauses possibly consistent with thought blocking. Her mood was described as ok. Her affect was odd and somewhat giddy. Thought process disorganized. Thought content: She denied suicidal or homicidal ideation, there were no delusions reported or noted. She denied auditory or visual hallucinations but at times appeared like she was responding to internal stimuli. Attention and concentration were impaired and memory appeared mostly unreliable, but none were formally tested. She is alert and oriented to person and place. Her insight was poor. Her judgment was poor. Her impulse control appeared impaired. Vitals/I&O/Wt Last Vital Signs Temp 98.5 F 04/07/23 06:00 Pulse 107 H 04/07/23 06:00 Resp 15 04/07/23 06:00 BP 149/74 04/07/23 06:00 Pulse Ox 97 04/07/23 06:00 O2 Del Method Room Air 04/07/23 06:00 Weight last 48 hrs Weight 62.142 kg Data NPU 03/31/23 08:28 03/31/23 08:28 A&P Assessment and plan (1) Acute psychosis: (2) Psychotic disorder: (3) Substance abuse: Plan This is a 47-year-old white female presenting with psychosis and bizarre behaviors consistent with her last hospitalization without notable drug use and reporting medication compliance but a very poor historian. 1. Continue current medication. We need to determine the medication she is actually taking. Restarted Seroquel 50 mg p.o. twice daily. Increase to 50 mg in the morning and 100 mg at night. Monitor for urinary retention. Patient now refusing antipsychotics. She says she would take Abilify 5 mg. We will monitor for adherence. Patient taking medication. We discontinued Seroquel. Increased Abilify to 10 mg p.o. daily. 2. Encourage individual, group and milieu therapies. 3. Continue every 15 checks for safety. 4. Determine whether there is occult drug use. 5. 96-hour hold initiated. Hold to end 04/10/2023. Involuntary Hold Information 96 Hour Hold: 96 Hour Involuntary Admission: No Attestations NPU Medical Necessity Statement*: Inpatient hospitalization is medically necessary and the clinically appropriate intervention at this time. We will monitor initiate medications while making changes as indicated. The patient's likely length of stay is 6-9 days. Coding Level of Care Code Acute Code for [facility] Fwd Diagnoses Acute psychosis F23 Psychotic disorder F29 Substance abuse F19.10
[2023-04-07] MEDS: ARIPiprazole 10 mg Tablet PO (09:29)
--- NOTE | 2023-04-07 12:43 | PC.NURSE ---
pt informed this nurse that her nicotine patch fell off in the shower, pt brought her trash to this nurse at 1240
[2023-04-07 14:00] VITALS: BP 121/67; PULSE 101; RESP 14; TEMP 36.6; O2SAT 97
[2023-04-07] MEDS: magnesium hydroxide 30 mL UDC PO (15:27)
[2023-04-07] MEDS: hyDROXYzine 25 mg Capsule 50 MG PO (16:56)
[2023-04-07] MEDS: ziprasidone hcl 20 mg Capsule PO (20:55)
[2023-04-07] MEDS: LORazepam 2 mg Tablet PO (20:56)
[2023-04-07 21:01] VITALS: RESP 16
--- NOTE | 2023-04-07 21:09 | PC.NURSE ---
IN ROOM, PT CONTINUES TO HAVE ANXIETY AND DANCING AROUND ROOM. PT IS DELUSIONAL AND USES HER HANDS TO SPEAK TO STAFF AND MUMBLES TO WHERE YOU CAN NOT UNDERSTAND HER. PT IS OBSERVED PICKING THINGS OUT OF THE AIR THAT ARE NOT THERE. REQUESTS MEDICATIONS TO HELP HER SLEEP AND TO DECREASE ANXIETY. PT WAS GIVEN ATIVAN 2 MG, GEODON 20 MG FOR INCREASED ANXIETY AND AGITATION WHEN REDIRECTING PT. PT WAS GIVEN TRAZODONE 50 MG FOR INSOMNIA. DENIES SI/HI AND AVH AT THIS TIME. PT IS OBSERVED RESPONDING TO INTERNAL STIMULI. PT TOOK MEDICATIONS WITHOUT DIFFICULTY. PT WENT BACK TO ROOM AND LAID DOWN. ALL QUESTIONS ANSWERED AND SUPPORT VOICED.
[2023-04-08 06:00] VITALS: BP 110/73; PULSE 94; RESP 16; TEMP 36.8; O2SAT 97
[2023-04-08] MEDS: ARIPiprazole 10 mg Tablet PO (07:42)
[2023-04-08] MEDS: nicotine 2 mg Gum BUCCAL ×3 (07:46→19:09)
--- NOTE | 2023-04-08 12:20 | W.PM.NPUPNS ---
Subjective NPU Subjective: Patient presented today unchanged in her odd and purposeless behavior however being more verbose. The rambled about many different topics and subjects. Not making a lot of sense but using her words nonetheless. Spoke to)/possible significant other and he reported that over the past 4 months she essentially had good days and bad days but was having difficulties like this regularly. Mental Status Exam MSE Comments: This is a well-nourished, well-developed white female in hospital scrubs with limited grooming and eye contact, appearing older than her stated age. No abnormal movements except for mild agitation as well as some aimless/purposeless behaviors noted. Cooperative with exam in mild distress. Her speech was monotone in quality with decreased rate and volume with some notable pauses possibly consistent with thought blocking. Her mood was described as ok. Her affect was odd and somewhat giddy. Thought process disorganized. Thought content: She denied suicidal or homicidal ideation, there were no delusions reported or noted. She denied auditory or visual hallucinations but at times appeared like she was responding to internal stimuli. Attention and concentration were impaired and memory appeared mostly unreliable, but none were formally tested. She is alert and oriented to person and place. Her insight was poor. Her judgment was poor. Her impulse control appeared impaired. Vitals/I&O/Wt Last Vital Signs Temp 98.3 F 04/08/23 06:00 Pulse 94 04/08/23 06:00 Resp 16 04/08/23 06:00 BP 110/73 04/08/23 06:00 Pulse Ox 97 04/08/23 06:00 O2 Del Method Room Air 04/08/23 06:00 Weight last 48 hrs Weight 62.142 kg Data NPU 03/31/23 08:28 03/31/23 08:28 A&P Assessment and plan (1) Acute psychosis: (2) Psychotic disorder: (3) Substance abuse: Plan This is a 47-year-old white female presenting with psychosis and bizarre behaviors consistent with her last hospitalization without notable drug use and reporting medication compliance but a very poor historian. 1. Continue current medication. We need to determine the medication she is actually taking. Restarted Seroquel 50 mg p.o. twice daily. Increase to 50 mg in the morning and 100 mg at night. Monitor for urinary retention. Patient now refusing antipsychotics. She says she would take Abilify 5 mg. We will monitor for adherence. Patient taking medication. We discontinued Seroquel. Increased Abilify to 10 mg p.o. daily. Increase Abilify to 15 mg p.o. daily tomorrow. May consider switching to Invega. 2. Encourage individual, group and milieu therapies. 3. Continue every 15 checks for safety. 4. Determine whether there is occult drug use. 5. 96-hour hold initiated. Hold to end 04/10/2023. 21-day hold paperwork filed today. Involuntary Hold Information 96 Hour Hold: 96 Hour Involuntary Admission: No Attestations NPU Medical Necessity Statement*: Inpatient hospitalization is medically necessary and the clinically appropriate intervention at this time. We will monitor initiate medications while making changes as indicated. The patient's likely length of stay is 6-9 days. Coding Level of Care Code Acute Code for [facility] Fwd Diagnoses Acute psychosis F23 Psychotic disorder F29 Substance abuse F19.10
[2023-04-08 14:00] VITALS: BP 97/52; PULSE 107; RESP 18; TEMP 36.9; O2SAT 97
--- NOTE | 2023-04-08 15:22 | PC.NURSE ---
patient gave verbal consent that staff could speak to Diego Salazar (friend)
[2023-04-08 20:04] VITALS: RESP 16
[2023-04-08] MEDS: LORazepam 2 mg Tablet PO (20:23)
[2023-04-08] MEDS: trazodone 50 mg Tablet PO (20:23)
--- NOTE | 2023-04-08 21:02 | PC.NURSE ---
IN DAY ROOM WATCHING TV AND INTERACTING WITH PEERS. PT DENIES SI/HI AND AVH AT THIS TIME. PT CONTINUES TO BE DELUSIONAL AND MUMBLES SPEAKING TO STAFF. ANIMATED SPEECH. PT IS VISIBLY ANXIOUS. ATIVAN 2 MG WAS GIVEN FOR ANXIETY, TRAZODONE 50 MG WAS GIVEN FOR INSOMNIA. PT PACES HALLWAYS AND RESPONDS TO INTERNAL STIMULI. PT IS ABLE TO BE REDIRECTED. ALL QUESTIONS ANSWERED AND SUPPORT VOICED.
--- NOTE | 2023-04-09 04:41 | PC.NURSE ---
PT HAS BEEN IN BED RESTING SINCE APPROXIMATELY 2300. PT GOT UP BRIEFLY ONCE TO GET A SNACK AND WENT BACK TO BED WHERE SHE IS CURRENTLY RESTING WITH EYES CLOSED. ATIVAN AND TRAZODONE DEEMED EFFECTIVE.
[2023-04-09 06:00] VITALS: RESP 16
[2023-04-09] MEDS: ARIPiprazole 10 mg Tablet PO (07:40)
[2023-04-09] MEDS: hyDROXYzine 25 mg Capsule 50 MG PO ×2 (09:18→23:21)
[2023-04-09 10:44] LABS: HCG Qualitative Urine. Negative (Negative)
--- NOTE | 2023-04-09 11:43 | P.NPUPN_ITS ---
Subjective NPU Subjective: Patient presented today reporting that she is doing okay. She was not happy with the fact that she was served for her 21-day hold paperwork. She seemed to lack insight into her need for significant care per staff reports and direct observation. She is to take her medication without incident and seem to be more capable of adding verbal exchanges today. Mental Status Exam MSE Comments: This is a well-nourished, well-developed white female in hospital scrubs with limited grooming and eye contact, appearing older than her stated age. No abnormal movements except for mild psychomotor agitation as well as some aimless/purposeless behaviors noted. Cooperative with exam in mild distress. H er speech was monotone in quality with decreased rate and volume with some notable pauses possibly consistent with thought blocking but having much more spontaneous speech though often rambling. Her mood was described as ok. Her affect was odd and somewhat giddy. Thought process disorganized. Thought content: She denied suicidal or homicidal ideation, there were no delusions reported or noted. She denied auditory or visual hallucinations but at times appeared like she was responding to internal stimuli. Attention and concentration were impaired and memory appeared mostly unreliable, but none were formally tested. She is alert and oriented to person and place. Her insight was poor. Her judgment was poor. Her impulse control appeared impaired. Vitals/I&O/Wt Last Vital Signs Temp 98.5 F 04/08/23 14:00 Pulse 107 H 04/08/23 14:00 Resp 16 04/09/23 06:00 BP 97/52 04/08/23 14:00 Pulse Ox 97 04/08/23 14:00 O2 Del Method Room Air 04/08/23 06:00 Data NPU 03/31/23 08:28 03/31/23 08:28 A&P Assessment and plan (1) Acute psychosis: (2) Psychotic disorder: (3) Substance abuse: Plan This is a 47-year-old white female presenting with psychosis and bizarre behaviors consistent with her last hospitalization without notable drug use and reporting medication compliance but a very poor historian. 1. Continue current medication. We need to determine the medication she is actually taking. Restarted Seroquel 50 mg p.o. twice daily. Increase to 50 mg in the morning and 100 mg at night. Monitor for urinary retention. Patient now refusing antipsychotics. She says she would take Abilify 5 mg. We will monitor for adherence. Patient taking medication. We discontinued Seroquel. Increased Abilify to 10 mg p.o. daily. Increase Abilify to 15 mg p.o. daily. May consider switching to Invega. 2. Encourage individual, group and milieu therapies. 3. Continue every 15 checks for safety. 4. Determine whether there is occult drug use. 5. 96-hour hold initiated. Hold to end 04/10/2023. 21-day hold paperwork filed 04/08/2023. Patient was served today and will have hearing for 21-day hold tomorrow. Involuntary Hold Information 96 Hour Hold: 96 Hour Involuntary Admission: No Attestations NPU Medical Necessity Statement*: Inpatient hospitalization is medically necessary and the clinically appropriate intervention at this time. We will monitor initiate medications while making changes as indicated. The patient's likely length of stay is 6-9 days. Coding Level of Care Code Acute Code for [facility] Fwd Diagnoses Acute psychosis F23 Psychotic disorder F29 Substance abuse F19.10
[2023-04-09 14:00] VITALS: BP 106/65; PULSE 99; RESP 14; TEMP 37.1; O2SAT 96
[2023-04-09] MEDS: nicotine 2 mg Gum BUCCAL (16:26)
[2023-04-09] MEDS: ibuprofen 600 mg Tablet PO (17:28)
[2023-04-09 20:56] VITALS: BP 104/64; PULSE 101; RESP 18; TEMP 36.8; O2SAT 98
[2023-04-09] MEDS: trazodone 50 mg Tablet PO ×2 (21:02→23:20)
--- NOTE | 2023-04-10 03:53 | PC.NURSE ---
Pt has been up pacing the hallway between nurses station, dayroom, and her room. Pt requests more sleep medication, however pt has had allotted Trazodone and Vistaril at this time. Pt is somewhat somnolent, no anxiety is present. Pt states I just need to sleep . Pt advised to try to lie down, however she continues to pace and appears to be responding to internal stimuli. Behavior monitoring continues.
[2023-04-10 06:00] VITALS: BP 105/61; PULSE 94; RESP 16; TEMP 36.5; O2SAT 98
--- NOTE | 2023-04-10 08:41 | PC.NURSE ---
patient is tearful, patient stated to this nurse I'm not crazy . patient walking around the bhandari, eyes are barely open. patient appears to be very tired.
[2023-04-10] MEDS: nicotine 4 mg lozenge MUCOUS MEM (08:44)
[2023-04-10] MEDS: ARIPiprazole 10 mg Tablet 15 MG PO (08:44)
--- NOTE | 2023-04-10 10:58 | W.PM.NPUPNS ---
Subjective NPU Subjective: Patient presented today reporting that she is doing okay. She continues to have her aimless and purposeless behavior at 1 point trying to generally arms with this conventional mortgage underwriter and sort of out of country dancing motif. She continues to lack boundaries and insight into her behaviors per staff reports and direct observation. She denied any side effects to the medication. Mental Status Exam MSE Comments: This is a well-nourished, well-developed white female in hospital scrubs with limited grooming and eye contact, appearing older than her stated age. No abnormal movements except for mild psychomotor agitation as well as some aimless/purposeless behaviors noted. Cooperative with exam in mild distress. Her speech was monotone in quality with decreased rate and volume with some notable pauses possibly consistent with thought blocking but having much more spontaneous speech though often rambling. Her mood was described as ok. Her affect was odd and somewhat giddy. Thought process disorganized. Thought content: She denied suicidal or homicidal ideation, there were no delusions reported or noted. She denied auditory or visual hallucinations but at times appeared like she was responding to internal stimuli. Attention and concentration were impaired and memory appeared mostly unreliable, but none were formally tested. She is alert and oriented to person and place. Her insight was poor. Her judgment was poor. Her impulse control appeared impaired. Vitals/I&O/Wt Last Vital Signs Temp 97.7 F 04/10/23 06:00 Pulse 94 04/10/23 06:00 Resp 16 04/10/23 06:00 BP 105/61 04/10/23 06:00 Pulse Ox 98 04/10/23 06:00 O2 Del Method Room Air 04/10/23 06:00 Data NPU 03/31/23 08:28 03/31/23 08:28 A&P Assessment and plan (1) Acute psychosis: (2) Psychotic disorder: (3) Substance abuse: Plan This is a 47-year-old white female presenting with psychosis and bizarre behaviors consistent with her last hospitalization without notable drug use and reporting medication compliance but a very poor historian. 1. Continue current medication. We need to determine the medication she is actually taking. Restarted Seroquel 50 mg p.o. twice daily. Increase to 50 mg in the morning and 100 mg at night. Monitor for urinary retention. Patient now refusing antipsychotics. She says she would take Abilify 5 mg. We will monitor for adherence. Patient taking medication. We discontinued Seroquel. Increased Abilify to 10 mg p.o. daily. Increase Abilify to 15 mg p.o. daily. May consider switching to Invega. 2. Encourage individual, group and milieu therapies. 3. Continue every 15 checks for safety. 4. Determine whether there is occult drug use. 5. 96-hour hold initiated. Hold to end 04/10/2023. 21-day hold paperwork filed 04/08/2023. 21-day hold hearing today and she was placed on a 21-day hold extension 04/10/2023. Involuntary Hold Information 96 Hour Hold: 96 Hour Involuntary Admission: No Attestations NPU Medical Necessity Statement*: Inpatient hospitalization is medically necessary and the clinically appropriate intervention at this time. We will monitor initiate medications while making changes as indicated. The patient's likely length of stay is 6-9 days. Coding Level of Care Code Acute Code for [facility] Diagnoses Acute psychosis F23 Psychotic disorder F29 Substance abuse F19.10
[2023-04-10] MEDS: polyethylene glycol 3350 Pkt 17 gm PO (10:59)
[2023-04-10] MEDS: OLANZapine 5 mg ODT PO (12:53)
[2023-04-10 14:00] VITALS: BP 128/68; PULSE 110; RESP 18; TEMP 36.8; O2SAT 99
--- NOTE | 2023-04-10 14:21 | PC.NURSE ---
patient off unit, taken by deputy to court
[2023-04-10] MEDS: hyDROXYzine 25 mg Capsule 50 MG PO ×2 (16:26→22:12)
[2023-04-10] MEDS: nicotine 2 mg Gum BUCCAL (18:47)
[2023-04-10 21:27] VITALS: BP 103/70; PULSE 110; RESP 18; TEMP 36.3; O2SAT 94
[2023-04-10] MEDS: trazodone 50 mg Tablet PO (22:12)
[2023-04-11] MEDS: acetaminophen 325 mg Tablet 650 MG PO (03:13)
[2023-04-11 06:00] VITALS: BP 98/65; PULSE 92; RESP 16; TEMP 36.8; O2SAT 97
[2023-04-11] MEDS: ARIPiprazole 10 mg Tablet 15 MG PO (08:33)
[2023-04-11] MEDS: OLANZapine 5 mg ODT PO (09:06)
[2023-04-11 13:52] VITALS: BP 117/64; PULSE 112; RESP 17; TEMP 36.9; O2SAT 98
[2023-04-11] MEDS: ARIPiprazole Maintena 400 MG IM (14:03)
--- NOTE | 2023-04-11 16:48 | W.PM.NPUPNS ---
Subjective NPU Subjective: Patient presented today reporting that she is okay but continues to have aimless and purposeless behavior. However now her speech has returned and is nonpressured per staff and with bizarre ramblings per staff and on direct observation. We discussed giving her an injection of Abilify Maintena 400 mg IM once make sure she is not having any urinary retention. Mental Status Exam MSE Comments: This is a well-nourished, well-developed white female in hospital scrubs with limited grooming and eye contact, appearing older than her stated age. No abnormal movements except for mild psychomotor agitation as well as some aimless/purposeless behaviors noted. Cooperative with exam in mild distress. Her speech was monotone in quality with decreased rate and volume with some notable pauses possibly consistent with thought blocking but having much more spontaneous speech though often rambling and now somewhat pressured. Her mood was described as ok. Her affect was odd and somewhat giddy. Thought process disorganized. Thought content: She denied suicidal or homicidal ideation, there were no delusions reported or noted. She denied auditory or visual hallucinations but at times appeared like she was responding to internal stimuli. Attention and concentration were impaired and memory appeared mostly unreliable, but none were formally tested. She is alert and oriented to person and place. Her insight was poor. Her judgment was poor. Her impulse control appeared impaired. Vitals/I&O/Wt Last Vital Signs Temp 97.7 F 04/11/23 20:43 Pulse 104 H 04/11/23 20:43 Resp 18 04/11/23 20:43 BP 109/78 04/11/23 20:43 Pulse Ox 96 04/11/23 20:43 O2 Del Method Room Air 04/11/23 20:43 Data NPU 03/31/23 08:28 03/31/23 08:28 A&P Assessment and plan (1) Acute psychosis: (2) Psychotic disorder: (3) Substance abuse: Plan This is a 47-year-old white female presenting with psychosis and bizarre behaviors consistent with her last hospitalization without notable drug use and reporting medication compliance but a very poor historian. 1. Continue current medication. We need to determine the medication she is actually taking. Restarted Seroquel 50 mg p.o. twice daily. Increase to 50 mg in the morning and 100 mg at night. Monitor for urinary retention. Patient now refusing antipsychotics. She says she would take Abilify 5 mg. We will monitor for adherence. Patient taking medication. We discontinued Seroquel. Increased Abilify to 10 mg p.o. daily. Increase Abilify to 15 mg p.o. daily. Patient tolerating Abilify will initiate injection 400 mg IM? May augment with Invega if full remission not achieved. 2. Encourage individual, group and milieu therapies. 3. Continue every 15 checks for safety. 4. Determine whether there is occult drug use. 5. 96-hour hold initiated. Hold to end 04/10/2023. 21-day hold paperwork filed 04/08/2023. 21-day hold hearing today and she was placed on a 21-day hold extension 04/10/2023. Involuntary Hold Information 96 Hour Hold: 96 Hour Involuntary Admission: No Attestations NPU Medical Necessity Statement*: Inpatient hospitalization is medically necessary and the clinically appropriate intervention at this time. We will monitor initiate medications while making changes as indicated. The patient's likely length of stay is 6-9 days. Coding Level of Care Code Acute Code for [facility] Diagnoses Acute psychosis F23 Psychotic disorder F29 Substance abuse F19.10
[2023-04-11] MEDS: CLONazepam 1 mg Tablet PO (20:15)
[2023-04-11 20:43] VITALS: BP 109/78; PULSE 104; RESP 18; TEMP 36.5; O2SAT 96
[2023-04-12 06:00] VITALS: PULSE 84; RESP 18; TEMP 36.9; O2SAT 97
[2023-04-12] MEDS: ARIPiprazole 10 mg Tablet 15 MG PO (08:59)
[2023-04-12] MEDS: nicotine 2 mg Gum BUCCAL (12:52)
--- NOTE | 2023-04-12 13:09 | W.PM.NPUPNS ---
Subjective NPU Subjective: Patient presented today reporting she is feeling better. She had a more clear and cogent conversation for her first day here in the hospital. She seemed to be able to have the normal [id number] of conversation for the first time. She reports that the medication i.e. the injection has proved really helpful. She denies any side effects of the medication and still no urinary retention noted. Mental Status Exam MSE Comments: This is a well-nourished, well-developed white female in hospital scrubs with limited grooming and eye contact, appearing older than her stated age. No abnormal movements except for mild psychomotor retardation with no significant aimless/purposeless behaviors noted. Cooperative with exam in mild distress. Her speech was monotone in quality with decreased rate and volume with less notable pauses possibly consistent with thought blocking but having much more spontaneous speech and resolution of the pressured speech. Her mood was described as better. Her affect was congruent and much less odd. Thought process more organized. Thought content: She denied suicidal or homicidal ideation, there were no delusions reported or noted. She denied auditory or visual hallucinations and did not appear to be responding to internal stimuli. Attention and concentration were improving and memory appeared more reliable, but none were formally tested. She is alert and oriented to person and place. Her insight was improving. Her judgment was improving her impulse control appeared improving. Vitals/I&O/Wt Last Vital Signs Temp 98.5 F 04/12/23 06:00 Pulse 84 04/12/23 06:00 Resp 18 04/12/23 06:00 BP 109/78 04/11/23 20:43 Pulse Ox 97 04/12/23 06:00 O2 Del Method Room Air 04/12/23 06:00 Data NPU 03/31/23 08:28 03/31/23 08:28 A&P Assessment and plan (1) Acute psychosis: (2) Psychotic disorder: (3) Substance abuse: Plan This is a 47-year-old white female presenting with psychosis and bizarre behaviors consistent with her last hospitalization without notable drug use and reporting medication compliance but a very poor historian. 1. Continue current medication. We need to determine the medication she is actually taking. Restarted Seroquel 50 mg p.o. twice daily. Increase to 50 mg in the morning and 100 mg at night. Monitor for urinary retention. Patient now refusing antipsychotics. She says she would take Abilify 5 mg. We will monitor for adherence. Patient taking medication. We discontinued Seroquel. Increased Abilify to 10 mg p.o. daily. Increase Abilify to 15 mg p.o. daily. Patient tolerating Abilify. We gave Abilify Maintena injection 400 mg IM 04/11/2023 we will give 14 days of oral supportive therapy at 15 mg? May augment with Invega if full remission not achieved. However noteworthy improvement today. 2. Encourage individual, group and milieu therapies. 3. Continue every 15 checks for safety. 4. Determine whether there is occult drug use. 5. 96-hour hold initiated. Hold to end 04/10/2023. 21-day hold paperwork filed 04/08/2023. 21-day hold hearing today and she was placed on a 21-day hold extension 04/10/2023. Involuntary Hold Information 96 Hour Hold: 96 Hour Involuntary Admission: No Attestations NPU Medical Necessity Statement*: Inpatient hospitalization is medically necessary and the clinically appropriate intervention at this time. We will monitor initiate medications while making changes as indicated. The patient's likely length of stay is 6-9 days. Coding Level of Care Code Acute Code for [facility] Fwd Diagnoses Acute psychosis F23 Psychotic disorder F29 Substance abuse F19.10
[2023-04-12 14:00] VITALS: BP 110/76; PULSE 86; RESP 16; TEMP 36.8; O2SAT 97
[2023-04-12 20:09] VITALS: BP 114/79; PULSE 97; RESP 18; TEMP 36.8; O2SAT 96
[2023-04-12] MEDS: CLONazepam 1 mg Tablet PO (20:13)
[2023-04-12] MEDS: acetaminophen 325 mg Tablet 650 MG PO (20:13)
[2023-04-13 06:00] VITALS: BP 143/97; PULSE 90; RESP 17; TEMP 36.9; O2SAT 98
--- NOTE | 2023-04-13 07:30 | P.NPUPN_ITS ---
Subjective NPU Subjective: Patient presented today reporting that she was doing okay. Staff reports a minor setback which is identifiable and direct observation as she was quite pressured in speech and looks more like 2 days ago than yesterday. We discussed that Dr. Santiago will be here tomorrow and that we will continue to work with her on her psychotic symptoms. She denies any side effects from the Abilify and st ill no signs of urinary retention. Mental Status Exam MSE Comments: This is a well-nourished, well-developed white female in hospital scrubs with limited grooming and eye contact, appearing older than her stated age. No abnormal movements except for mild psychomotor retardation with some aimless/purposeless behaviors noted. Cooperative with exam in mild distress. Her speech was monotone in quality with decreased rate and volume with less notable pauses possibly consistent with thought blocking but having much more spontaneous speech and resumption of the pressured speech. Her mood was describe d as better. Her affect was congruent and much less odd. Thought process more organized. Thought content: She denied suicidal or homicidal ideation, there were no delusions reported or noted. She denied auditory or visual hallucinations and did appear to be responding to internal stimuli. Attention and concentration were limited and memory appeared more reliable, but none were formally tested. She is alert and oriented to person and place. Her insight was limited. Her judgment was limited her impulse control appeared limited. Vitals/I&O/Wt Last Vital Signs Temp 98.4 F 04/13/23 19:44 Pulse 99 04/13/23 19:44 Resp 15 04/13/23 19:44 BP 126/77 04/13/23 19:44 Pulse Ox 98 04/13/23 19:44 O2 Del Method Room Air 04/13/23 19:44 Weight last 48 hrs Weight 65.317 kg Data NPU 03/31/23 08:28 03/31/23 08:28 A&P Assessment and plan (1) Acute psychosis: (2) Psychotic disorder: (3) Substance abuse: Plan This is a 47-year-old white female presenting with psychosis and bizarre behaviors consistent with her last hospitalization without notable drug use and reporting medication compliance but a very poor historian. 1. Continue current medication. We need to determine the medication she is actually taking. Restarted Seroquel 50 mg p.o. twice daily. Increase to 50 mg in the morning and 100 mg at night. Monitor for urinary retention. Patient now refusing antipsychotics. She says she would take Abilify 5 mg. We will monitor for adherence. Patient taking medication. We discontinued Seroquel. Increased Abilify to 10 mg p.o. daily. Increase Abilify to 15 mg p.o. daily. Patient tolerating Abilify. We gave Abilify Maintena injection 400 mg IM 04/11/2023 we will give 14 days of oral supportive therapy at 15 mg? May augment with Invega if full remission not achieved. Klonopin 1 mg p.o. nightly for assistance with sleep. However noteworthy improvement 04/12/2023. 04/13/2023 however return to significant pressured speech. 2. Encourage individual, group and milieu therapies. 3. Continue every 15 checks for safety. 4. Determine whether there is occult drug use. 5. 96-hour hold initiated. Hold to end 04/10/2023. 21-day hold paperwork filed 04/08/2023. 21-day hold hearing today and she was placed on a 21-day hold extension 04/10/2023. Involuntary Hold Information 96 Hour Hold: 96 Hour Involuntary Admission: No Attestations NPU Medical Necessity Statement*: Inpatient hospitalization is medically necessary and the clinically appropriate intervention at this time. We will monitor initiate medications while making changes as indicated. The patient's likely length of stay is 6-9 days. Coding Level of Care Code Acute Code for [facility] Fwd Diagnoses Acute psychosis F23 Psychotic disorder F29 Substance abuse F19.10
[2023-04-13] MEDS: ARIPiprazole 10 mg Tablet 15 MG PO (08:14)
--- NOTE | 2023-04-13 09:50 | PC.NURSE ---
Patient has been walking up and down the hallway, rambling about various topics. She has asked multiple times for her green pill and is referring to her clonazepam. This RN advised her that it is scheduled to be taken at bedtime and she continues to reply, oh ya, you told me that already. Sorry. She has also mentioned putting underwear on her head several times, although she has not done that today. Patient also becomes tearful for no apparent reason when walking in the hallway and then will smile.
[2023-04-13] MEDS: acetaminophen 325 mg Tablet 650 MG PO (10:49)
[2023-04-13 12:39] VITALS: BP 115/61; PULSE 99; RESP 17; TEMP 36.3; O2SAT 100
[2023-04-13] MEDS: nicotine 2 mg Gum BUCCAL (18:32)
[2023-04-13 19:44] VITALS: BP 126/77; PULSE 99; RESP 15; TEMP 36.9; O2SAT 98
[2023-04-13] MEDS: CLONazepam 1 mg Tablet PO (20:08)
[2023-04-14 06:00] VITALS: BP 112/75; PULSE 97; RESP 19; TEMP 37.2; O2SAT 98
[2023-04-14] MEDS: acetaminophen 325 mg Tablet 650 MG PO (07:42)
--- NOTE | 2023-04-14 08:00 | PC.NURSE ---
Denies avh and si/hi. She states she has anxiety and rates it at a 4/10. She says this is because she is ready to leave and she has been thinking about her past with her dad. 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 She also says she's been thinking about her divorce and said, I didn't really want it ya know, but he did and he had MS. But that's okay. During this time she became very tearful. Support was voiced and patient got on the phone with a friend.
[2023-04-14] MEDS: ARIPiprazole 10 mg Tablet 15 MG PO (08:05)
[2023-04-14] MEDS: nicotine 2 mg Gum BUCCAL ×3 (08:32→16:15)
[2023-04-14 13:34] VITALS: BP 105/59; PULSE 100; RESP 18; O2SAT 100
[2023-04-14] MEDS: hyDROXYzine 25 mg Capsule 50 MG PO (14:49)
--- NOTE | 2023-04-14 15:23 | P.NPUPN_ITS ---
Subjective NPU Subjective: 47-year-old white female previously admitted with psychosis with no substance use admitted once again with bizarre behaviors and psychosis. The patient had continued to appear quite confused. She had reported having excess reliance on needing to read the Bible. She had stated that the Klonopin had been helpful for sleep. She had reported that she had felt as if things that were occurring at home were problematic and likely influenced by some sinister forces. She had reported having difficulties with managing her worry and stated that she worried chronically about her demented father who was residing with her sister. She had appeared to isolate herself on the milieu and spent much of the time reading the Bible. She had endorsed having gone to evangelical and stated that she often went to other churches several within the area in hopes of helping spread the word of God. She had reported having periods of time where she did not require sleep for several days. She did complain of leg pain and restless legs last night on this medication. Mental Status Exam MSE Comments: This is a well-nourished, well-developed white female in hospital scrubs with limited grooming and eye contact, appearing older than her stated age. No abnormal movements except for mild psychomotor retardation with some aimless/purposeless behaviors noted. She was cooperative with exam in mild distress. Her speech was monotone in quality with decreased rate and volume with some evidence of paucity of speech. Her mood was described as worried. Her affect was odd and subdued. Thought process more organized. Thought content: She denied suicidal or homicidal ideation, there were no delusions rep orted or noted. She denied auditory or visual hallucinations although she did appear to be responding to internal stimuli. Attention and concentration were limited and memory appeared more reliable, but none were formally tested. She is alert and oriented to person and place and time. Her insight was limited. Her judgment was limited her impulse control appeared limited. Vitals/I&O/Wt Last Vital Signs Temp 98.9 F 04/14/23 06:00 Pulse 100 04/14/23 13:34 Resp 18 04/14/23 13:34 BP 105/59 04/14/23 13:34 Pulse Ox 100 04/14/23 13:34 O2 Del Method Room Air 04/14/23 06:00 Weight last 48 hrs Weight 65.317 kg Data NPU 03/31/23 08:28 03/31/23 08:28 A&P Assessment and plan (1) Psychotic disorder: Plan This is a 47-year-old white female presenting with psychosis and bizarre behaviors consistent with her last hospitalization. 1. Increase Abilify to 15mg daily to target psychosis. 2.? Encourage individual, group and milieu therapies. 3.? Continue every 15 checks for safety. 4.? Determine whether there is occult drug use. 5.? ?21-day hold hearing today and she was placed on a 21-day hold extension 04/10/2023. Involuntary Hold Information 96 Hour Hold: 96 Hour Involuntary Admission: No Attestations NPU Medical Necessity Statement*: Inpatient hospitalization is medically necessary and the clinically appropriate intervention at this time. We will monitor initiate medications while making changes as indicated. The patient's likely length of stay is 6-9 days. Coding Level of Care Code Acute Code for [facility] Fwd Diagnoses Psychotic disorder F29
[2023-04-14 20:09] VITALS: BP 102/71; PULSE 93; RESP 18; TEMP 36.7; O2SAT 95
[2023-04-14] MEDS: CLONazepam 1 mg Tablet PO (21:45)
[2023-04-15] MEDS: acetaminophen 325 mg Tablet 650 MG PO ×2 (04:40→18:45)
[2023-04-15 06:00] VITALS: BP 109/78; PULSE 92; RESP 18; TEMP 36.7; O2SAT 99
[2023-04-15] MEDS: ARIPiprazole 10 mg Tablet 20 MG PO (08:00)
[2023-04-15] MEDS: docusate sodium 100 mg Capsule PO (08:49)
[2023-04-15] MEDS: nicotine 2 mg Gum BUCCAL ×2 (12:17→16:47)
[2023-04-15 14:00] VITALS: BP 115/77; PULSE 99; RESP 16; TEMP 36.6; O2SAT 98
[2023-04-15] MEDS: hyDROXYzine 25 mg Capsule 50 MG PO (15:36)
--- NOTE | 2023-04-15 19:09 | P.NPUPN_ITS ---
Subjective NPU Subjective: 47-year-old white female previously admitted with psychosis with no substance use admitted once again with bizarre behaviors and psychosis. Patient had not endorsed any side effects from her Abilify today. She had previously endorsed having urinary retention when on Abilify several months ago but had not been reporting these problems. She had reported improvement in sleep at night with debbie Chávez. She continued to report was something unusual going on at her home that had made her feel unsafe. She had continued to complain of declining ability to care for herself and stated that she had had problems with her thoughts. She reported no depressed mood. She had continue to isolate herself on the milieu. She reported that she needed to focus on her Bible and reported that the answer to her problems were somewhere in there at the time. She had acknowledged not previously being cheondoism and was unable to elaborate regarding her thoughts of her newfound cheondoism interest. Mental Status Exam MSE Comments: This is a well-nourished, well-developed white female in hospital scrubs with limited grooming and eye contact, appearing older than her stated age. No abnormal movements except for mild psychomotor retardation with some aimless/purposeless behaviors noted. She was cooperative with exam in mild distress. Her speech was monotone in quality with decreased rate and volume with less evidence of paucity of speech. Her mood was described as anxious. Her affect was odd and subdued. Thought process more organized. Thought content: She denied suicidal or homicidal ideation, there were no delusions reported or noted. She denied auditory or visual hallucinations although she did appear to be responding to internal stimuli. Attention and concentration were limited and memory appeared more reliable, but none were formally tested. She is alert and oriented to person and place and time. Her insight was limited. Her judgment was limited her impulse control appeared limited. Vitals/I&O/Wt Last Vital Signs Temp 97.9 F 04/15/23 14:00 Pulse 99 04/15/23 14:00 Resp 16 04/15/23 14:00 BP 115/77 04/15/23 14:00 Pulse Ox 98 04/15/23 14:00 O2 Del Method Room Air 04/15/23 14:00 Weight last 48 hrs Weight 65.317 kg Data NPU 03/31/23 08:28 03/31/23 08:28 A&P Assessment and plan (1) Psychotic disorder: Plan This is a 47-year-old white female presenting with psychosis and bizarre behaviors consistent with her last hospitalization. 1. Increase Abilify to 20mg daily to target psychosis. Continue klonopin as prescribed. 2.? Encourage individual, group and milieu therapies. 3.? Continue every 15 checks for safety. 4.? Determine whether there is occult drug use. 5.? ?21-day hold hearing today and she was placed on a 21-day hold extension 04/10/2023. Involuntary Hold Information 96 Hour Hold: 96 Hour Involuntary Admission: No Attestations NPU Medical Necessity Statement*: Inpatient hospitalization is medically necessary and the clinically appropriate intervention at this time. We will monitor initiate medications while making changes as indicated. The patient's likely length of stay is 6-9 days. Coding Level of Care Code Acute Code for [facility] Fwd Diagnoses Psychotic disorder F29
[2023-04-15 20:14] VITALS: BP 99/62; PULSE 102; RESP 16; TEMP 36.8; O2SAT 99
[2023-04-15] MEDS: CLONazepam 1 mg Tablet PO (20:24)
[2023-04-15] MEDS: trazodone 50 mg Tablet PO (20:25)
--- NOTE | 2023-04-15 20:41 | PC.NURSE ---
IN BED RESTING AROUSES TO VOICE. PT STATES SHE HAS A HEADACHE BUT I TOOK SOMETHING FOR IT EARLIER SO ITS A LITTLE BETTER. PT DENIES SI/HI AND AVH AT THIS TIME. REPORTS ANXIETY 5/10 AND DEPRESSION 0/10. PT ENCOURAGED TO REST IN BED. PT REQUEST PRN TO HELP HER SLEEP. PT WAS EDUCATED SHE TAKES CLONAZEPAM AT NIGHT. PT STATED I KNOW BUT I NEED SOMETHING TO SLEEP. PT WAS GIVEN TRAZODONE 50 MG FOR INSOMNIA. ALL QUESTIONS ANSWERED AND SUPPORT VOICED.
[2023-04-16 06:00] VITALS: RESP 16
[2023-04-16] MEDS: docusate sodium 100 mg Capsule PO (08:05)
[2023-04-16] MEDS: OLANZapine 5 mg ODT PO ×2 (08:05→18:12)
[2023-04-16] MEDS: ARIPiprazole 10 mg Tablet 20 MG PO (08:05)
[2023-04-16] MEDS: nicotine 2 mg Gum BUCCAL ×2 (13:07→16:39)
[2023-04-16 14:00] VITALS: BP 111/68; PULSE 109; RESP 20; TEMP 36.4; O2SAT 98
[2023-04-16] MEDS: polyethylene glycol 3350 Pkt 17 gm PO (16:19)
--- NOTE | 2023-04-16 18:09 | P.NPUPN_ITS ---
Subjective NPU Subjective: 47-year-old white female previously admitted with psychosis with no substance use admitted once again with bizarre behaviors and psychosis. Patient had provided additional history including a family history of schizophrenia as she stated that her sister had been placed in a state hospital for several years. Patient had described a decline in function and increase in worry that had been occurring over the last several months. She continued to struggle with activities of daily living completion. She had a pleat appeared a bit more engaged with certain peers. She reported no side effects from her Abilify. She reported that she continued to have great anxiety in the daytime and stated that she had a difficult time managing her worry. She denied any racing thoughts. She continued to report concern about something happening at home but remained unwilling or unable to provide further details. Mental Status Exam MSE Comments: This is a well-nourished, well-developed white female in hospital scrubs with limited grooming and eye contact, appearing older than her stated age. No ab normal movements except for mild psychomotor retardation with some aimless/purposeless wandering noted. She was cooperative with exam in mild distress. Her speech was monotone in quality with decreased rate and volume with improved fluency and less noticable periods of increased speech latency. Her mood was described as worried. Her affect was odd. Thought process more organized. Thought content: She denied suicidal or homicidal ideation, there were no delusions reported or noted. She denied auditory or visual hallucinations although she did appear to be responding to internal stimuli. Attention and concentration were limited and memory appeared more reliable, but none were formally tested. She is alert and oriented to person and place and time. Her insight was limited. Her judgment was limited her impulse control appeared limited. Vitals/I&O/Wt Last Vital Signs Temp 97.5 F L 04/16/23 14:00 Pulse 109 H 04/16/23 14:00 Resp 20 H 04/16/23 14:00 BP 111/68 04/16/23 14:00 Pulse Ox 98 04/16/23 14:00 O2 Del Method Room Air 04/15/23 14:00 Data NPU 03/31/23 08:28 03/31/23 08:28 A&P Assessment and plan (1) Psychotic disorder: Plan This is a 47-year-old white female presenting with psychosis and bizarre behaviors consistent with her last hospitalization. 1. Continue Abilify 20mg daily to target psychosis. Continue klonopin as prescribed at night. 2.? Encourage individual, group and milieu therapies. 3.? Continue every 15 checks for safety. 4.? Determine whether there is occult drug use. 5.? ?21-day hold hearing today and she was placed on a 21-day hold extension 04/10/2023. Involuntary Hold Information 96 Hour Hold: 96 Hour Involuntary Admission: No Attestations NPU Medical Necessity Statement*: Inpatient hospitalization is medically necessary and the clinically appropriate intervention at this time. We will monitor initiate medications while making changes as indicated. The patient's likely length of stay is 6-9 days. Coding Level of Care Code Acute Code for [facility] Diagnoses Psychotic disorder F29
[2023-04-16] MEDS: CLONazepam 1 mg Tablet PO (20:37)
[2023-04-16] MEDS: trazodone 50 mg Tablet PO (20:37)
[2023-04-16 20:45] VITALS: BP 110/73; PULSE 103; RESP 16; TEMP 36.6; O2SAT 97
--- NOTE | 2023-04-16 21:02 | PC.NURSE ---
IN BED RESTING AROUSES TO VOICE. DENIES PAIN. DENIES SI/HI AND AVH AT THIS TIME. REPORTS ANXIETY 6/10 AND DEPRESSION 0/10. PT CONTINUES TO BE OBSERVED TO HAVE A FLAT AFFECT BUT DOES APPEAR BETTER NOT RESPONDING TO INTERNAL STIMULI. PT REQUEST SLEEP MEDICINE. TRAZODONE 50 MG WAS GIVEN ORDERED FOR INSOMNIA. PT THEN LAID DOWN. SUPPORT VOICED.
[2023-04-17 06:00] VITALS: BP 111/70; PULSE 90; RESP 15; O2SAT 98
[2023-04-17] MEDS: ARIPiprazole 10 mg Tablet 20 MG PO (08:07)
--- NOTE | 2023-04-17 08:46 | PC.NURSE ---
Patient talking on phone and crying this morning. When patient got off of the phone this RN asked her what had upset her. She said she was just getting homesick. She denies avh and si/hi. Cooperative with assessment and support voiced.
[2023-04-17] MEDS: nicotine 2 mg Gum BUCCAL ×3 (09:57→16:07)
[2023-04-17] MEDS: polyethylene glycol 3350 Pkt 17 gm PO (10:21)
--- NOTE | 2023-04-17 10:21 | PC.NURSE ---
PRN MIRALAX 17 G PACKET GIVEN PO PER PT C/O CONSTIPATION
[2023-04-17 14:00] VITALS: BP 115/77; PULSE 110; RESP 20; TEMP 36.3; O2SAT 97
--- NOTE | 2023-04-17 17:57 | P.NPUPN_ITS ---
Subjective NPU Subjective: 47-year-old white female previously admitted with psychosis with no substance use admitted once again with bizarre behaviors and psychosis. the patient had acknowledged that she had felt that the Abilify has been helpful for her. She did continue to report anxiety regarding being here in the hospital. She had reported adequate sleep. She had continued to attend groups. She had reported that her mood was better. She did state that she has support from a friend Willian who lived on her property. She reports that she felt comfortable with returning home soon. Patient had provided additional history including a family history of schizophrenia as she stated that her sister had been placed in a state hospital for several years. She had appeared to be less focused on latter day and appeared more social with other peers. The patient had appeared exquisitely sensitive to news that other people were leaving and she had become very tearful when some of her peers were being discharged today. Mental Status Exam MSE Comments: This is a well-nourished, well-developed white female in hospital scrubs with improved grooming and eye contact, appearing older than her stated age. No abnormal movements except for mild psychomotor retardation with less wandering noted. She was cooperative with exam in mild distress. Her speech was monotone in quality with decreased rate and volume with improved fluency and less noticable periods of increased speech latency. Her mood was described as better Her affect remained flat. Thought process more organized. Thought content: She denied suicidal or homicidal ideation, there were no delusions reported or noted. She denied auditory or visual hallucinations although she did appear to be responding to internal stimuli. Attention and concentration were limited and memory appeared more reliable, but none were formally tested. She is alert and oriented to person and place and time. Her insight was improving. Her judgment was limited her impulse control appeared limited. Vitals/I&O/Wt Last Vital Signs Temp 97.3 F L 04/17/23 14:00 Pulse 110 H 04/17/23 14:00 Resp 20 H 04/17/23 14:00 BP 115/77 04/17/23 14:00 Pulse Ox 97 04/17/23 14:00 O2 Del Method Room Air 04/17/23 14:00 Data NPU 03/31/23 08:28 03/31/23 08:28 A&P Assessment and plan (1) Psychotic disorder: Plan This is a 47-year-old white female presenting with psychosis and bizarre behaviors consistent with her last hospitalization. 1. Continue Abilify 20mg daily to target psychosis. Continue klonopin with reduction to .75mg at night. Monitor for insomnia. 2.? Encourage individual, group and milieu therapies. 3.? Continue every 15 checks for safety. 4.? Determine whether there is occult drug use. 5.? ?21-day hold hearing today and she was placed on a 21-day hold extension 04/10/2023. Involuntary Hold Information 96 Hour Hold: 96 Hour Involuntary Admission: No Attestations NPU Medical Necessity Statement*: Inpatient hospitalization is medically necessary and the clinically appropriate intervention at this time. We will monitor initiate medications while making changes as indicated. The patient's likely length of stay is 3-5 days. Coding Level of Care Code Acute Code for [facility] Diagnoses Psychotic disorder F29
[2023-04-17] MEDS: OLANZapine 5 mg ODT PO (18:54)
--- NOTE | 2023-04-17 18:54 | PC.NURSE ---
PRN ZYPREXA ZYDIS 5 MG GIVEN PO SUBLINGUAL PER PT C/O STATED ANXIETY
[2023-04-17] MEDS: CLONazepam 0.5 mg Tablet 0.75 MG PO (20:09)
[2023-04-17 20:34] VITALS: BP 90/66; PULSE 113; RESP 16; TEMP 36.9; O2SAT 98
[2023-04-18 06:00] VITALS: PULSE 100; RESP 17; O2SAT 93
[2023-04-18] MEDS: nicotine 2 mg Gum BUCCAL ×5 (07:29→18:44)
[2023-04-18] MEDS: ARIPiprazole 10 mg Tablet 20 MG PO (07:29)
[2023-04-18] MEDS: acetaminophen 325 mg Tablet 650 MG PO (07:29)
--- NOTE | 2023-04-18 08:38 | PC.NURSE ---
During morning assessment, patient denies SI, HI, AVH, depression, and anxiety. Patient appears to be in good spirits.
[2023-04-18] MEDS: OLANZapine 5 mg ODT PO (09:44)
--- NOTE | 2023-04-18 09:48 | PC.NURSE ---
administered 5mg Zyprexa ODT to patient for anxiety and agitation. patient crying at the window. patient states that she has prayed and she is concerned about her son not going to baptism.
--- NOTE | 2023-04-18 12:58 | P.NPUPN_ITS ---
Subjective NPU Subjective: 47-year-old white female previously admitted with psychosis with no substance use admitted once again with bizarre behaviors and psychosis. Patient had reported improvement in mood. She reported no side effects from her medication. She had reported improved sleep. Staff notes patient had been more social. SHe had reported some anxiety with behavior of another peer on the unit. She wa s able to attend groups and was more social on the unit. She reported good visit from her friend who stays with her and stated that her friend would help her with taking her medications upon discharge. Mental Status Exam MSE Comments: This is a well-nourished, well-developed white female in hospital scrubs with improved grooming and eye contact, appearing older than her stated age. No abnormal involuntary motor movements were appreciated today. She was cooperative with exam in mild distress. Her speech was monotone in quality with normal rate and volume with no evidence of increased speech latency. Her mood was described as okay Her affect remained blunted. Thought process was more organized. Thought content: She denied suicidal or homicidal ideation, there were no delusions reported or noted. She denied auditory or visual hallucinations although she did appear to be responding to internal stimuli. Attention and concentration were limited and memory appeared more reliable, but none were formally tested. She is alert and oriented to person and place and time. Her insight was improving. Her judgment was limited her impulse control appeared limited. Vitals/I&O/Wt Last Vital Signs Temp 98.5 F 04/17/23 20:34 Pulse 100 04/18/23 06:00 Resp 17 04/18/23 06:00 BP 90/66 04/17/23 20:34 Pulse Ox 93 04/18/23 06:00 O2 Del Method Room Air 04/18/23 06:00 Data NPU 03/31/23 08:28 03/31/23 08:28 A&P Assessment and plan (1) Psychotic disorder: Plan This is a 47-year-old white female presenting with psychosis and bizarre behaviors consistent with her last hospitalization. 1. Continue Abilify 20mg daily to target psychosis. Continue klonopin with reduction to .75mg at night. Monitor for insomnia. 2.? Encourage individual, group and milieu therapies. 3.? Continue every 15 checks for safety. 4.? Determine whether there is occult drug use. 5.? ?21-day hold hearingand she was placed on a 21-day hold extension 04/10/2023. Involuntary Hold Information 96 Hour Hold: 96 Hour Involuntary Admission: No Attestations NPU Medical Necessity Statement*: Inpatient hospitalization is medically necessary and the clinically appropriate intervention at this time. We will monitor initiate medications while making changes as indicated. The patient's likely length of stay is 1-2 days. Coding Level of Care Code Acute Code for [facility] Diagnoses Psychotic disorder F29
[2023-04-18 14:00] VITALS: BP 105/70; PULSE 97; RESP 16; TEMP 37.3; O2SAT 100
[2023-04-18] MEDS: hyDROXYzine 25 mg Capsule 50 MG PO (15:06)
--- NOTE | 2023-04-18 15:06 | PC.NURSE ---
PRN VISTARIL 50 MG GIVEN PO PER PT C/O STATED ANXIETY
[2023-04-18] MEDS: CLONazepam 0.5 mg Tablet 0.75 MG PO (20:03)
[2023-04-18 20:24] VITALS: BP 116/66; PULSE 95; RESP 18; O2SAT 100
[2023-04-18] MEDS: trazodone 50 mg Tablet PO (21:26)
[2023-04-19] MEDS: nicotine 2 mg Gum BUCCAL ×3 (05:16→12:18)
[2023-04-19 06:00] VITALS: PULSE 100; RESP 18; TEMP 36.7; O2SAT 99
[2023-04-19] MEDS: ARIPiprazole 10 mg Tablet 20 MG PO (07:56)
[2023-04-19] MEDS: OLANZapine 5 mg ODT PO (09:29)
--- NOTE | 2023-04-19 12:28 | W.PM.NPUDCS ---
Diagnoses at Discharge Discharge Diagnosis (1) Psychotic disorder: Status: Acute Reason for Visit Reason for Visit: AMS; HALLUCINATIONS Brief History: History of Present Illness Marialuisa José is a 47 year old female who presented to the emergency department with the following report: ?Chief Complaint: Altered Mental Status Stated Complaint: AMS; HALLUCINATIONS Time Seen by Provider: 03/30/23 12:10 History of Present Illness: ? 47-year-old female presents emergency department via [facility] Department.? Patient was found having strange and bizarre behavior in a public area.? She appeared to be talking to people that were not present.? She is very hyperactive and has flight of ideas and pressured speech.? I did review the patient's previous medical records as she is a poor historian, it does appear that she has been admitted to this hospital several times for acute psychosis.? She is moderately difficult to redirect and does not appear to be able to maintain a consistent thought.? She denies pain. She was admitted to the neuropsychiatric unit for definitive treatment of those issues.? She presented today much as she had in her previous hospitalization with significant altered mental status, bizarre behaviors and some aimless/purposeless behaviors and responses.? She is a very poor historian and cannot be taken at her word.? Past hospitalization right with difficulty with urinary retention secondary to antipsychotic medication.? Need to determine if she was able to continue improving on low-dose Seroquel without any return what happened in the 4 months she has been gone.? Little of what she said made sense as she seemed quite disorganized with random speech. Per her 11/23/2022 [facility] inpatient psychiatric discharge summary: si? Brief History: History of Present Illness Marialuisa José is a 46 year old female with no prior history of inpatient treatment who had presented to the emergency department via EMS after the patient had been found wandering the streets accompanied by her dog.? Patient had reported that she was on her way to [place] by foot to see her family.? The patient was involuntarily hospitalized after an affidavit completed by the patient's son had stated that the patient had been having thoughts and expressed a belief that the patient's son was possessed by the devil and after the patient's son had stated that the patient was going to kill her ex-.? The patient was admitted to the neuropsychiatric unit for further treatment and evaluation.? The patient reports that she has been having increased problems with her thoughts beginning approximately 4 weeks ago as she stated that she felt like something clicked in her head where she started feeling different.? The patient had expressed that she is not depressed and does not have thoughts of hurting herself or anyone else.? She states that she had been stressed by having her demented father move into her home and had expressed that she was unable to manage his care and that she had been extremely stressed.? She had reported having had a feeling in her mind that her son may have been engaged in unholy acts towards her.? She had acknowledged that she had often called her ex- Kiesha but stated that she was merely joking.? She did state that she had been increasingly suspicious about others but states that she is feeling better and here.? She had denied any auditory or visual hallucinations.? She had reported having some problems with concentration and states that she had not been taking care of herself very well.? When asked about why she had to walk her dog on the highway, the patient was unable to provide a reasonable answer.? She did acknowledge that her son had moved outside of the house despite living there as he had also grown tired of the patient's behavior.? She had denied any ideas of reference and did not endorse feeling unsafe while on the inpatient unit.? The patient was positive for marijuana on urine testing in the emergency department.? She had expressed that she had not used marijuana but states that she may have been exposed to it. Past psychiatric history: None reported Allergies: Penicillin, sulfa drugs Medical history: None Surgical history: History of right shoulder repair, history of tonsillectomy Current medications: None Drug and alcohol history: She reported a past history of alcohol use but states that she is not a routine drinker with no history of alcohol withdrawal symptoms.? She denied any other drug use at this time. Family psychiatric history: Alcoholism in the father. history: None Social history: The patient lives in [place].? She had been 1 time before in the past.? She states that she was born in [place] and that she had lost her mother when she was only 11 years old.? She states that she had been forced to live in a foster home as her father had not been able to take care of her.? 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 She had reported no history of trauma.? She reported having a recent deep URI for driving under the influence of alcohol.? She states having only 1 son who currently lives in the house. Hospital Course She very slowly acclimated to the individual, group and milieu therapies provided.? She presented with significant psychosis.? Haldol, Abilify, and Invega was tried all of which helped her psychosis but all of which caused her significant urinary retention.? Leading to catheterization on multiple occasions.? Ultimately after consultation with urology Flomax was initiated which helped with those 3 medications but not enough to have as standard treatment.? Seroquel was initiated and titrated to 50 mg p.o. twice daily with improvement in psychosis without the urinary retention while on Flomax. ? She had significant improvement during her stay. ? She worked with the social work team for appropriate aftercare planning.? She was able to contract for safety outside of the hospital prior to discharge.? During the hospitalization, patient had routine laboratory studies which were within normal limits except for few outliers.? Additionally there was a general medical evaluation which was also within normal limits and revealed no new acute processes except for the urinary retention that was induced by antipsychotics. Discharge Summary: At the time of discharge, lethality was denied and psychosis was resolving.? Mood and anxiety were well managed.? Patient endorsed a plan to avoid all drugs of abuse and follow-up with the aftercare recommendations of the treatment team.? Patient was evaluated and deemed to be absent credible lethality, and had achieved the maximum benefit from an inpatient hospitalization, so was discharged. Hospital Course Hospital Course During the hospitalization, the patient had routine laboratory studies which were within normal limits except for a few outliers.? Additionally, there was a general medical evaluation which was also within normal limits and revealed no new acute processes.? At the time of discharge, lethality was denied and psychosis was resolving.? Mood and anxiety were well managed.? The patient endorsed a plan to avoid all drugs of abuse and follow up with the aftercare recommendations of the treatment team.? The patient was evaluated and deemed to be absent credible lethality and had achieved the maximum benefit from an inpatient hospitalization, and so was discharged.?The patient was started on Abilify and titrated up to a dose 20mg prior to discharge with improvement in psychotic symptoms noted. Involuntary Hold Information 96 Hour Hold: 96 Hour Involuntary Admission: No Mental Status Exam MSE Comments: This is a well-nourished, well-developed white female in hospital scrubs with improved grooming and eye contact, appearing older than her stated age. No abnormal involuntary motor movements were appreciated today. She was cooperative with exam in no acute distress. Her speech was monotone in quality with normal rate and volume with no evidence of increased speech latency. Her mood was described as better Her affect was brighter on discharge. Thought process was linear and more organized. Thought content: She denied suicidal or homicidal ideation, there were no delusions reported or noted. She denied auditory or visual hallucinations and did not appear to be responding to internal stimuli. Attention and concentration were limited and memory appeared more reliable, but none were formally tested. She is alert and oriented to person and place and time. Her insight was improving. Her judgment was fair and her impulse control appeared better. Discharge Data Studies Completed and Pending: Laboratory Results WBC 8.65 10^3/uL (3.2 9-11.43) 03/31/23 08:28 RBC 5.11 10^6/uL (3.8 5-5.65) 03/31/23 08:28 Hgb 14.70 g/dL (11.27 -16.99) 03/31/23 08:28 Hct 43.8 % (36-47) 03/31/23 08:28 MCV 85.7 fl (85-98) 03/31/23 08:28 MCH 28.8 pg (27-33) 03/31/23 08:28 MCHC 33.6 g/dL (30-55) 03/31/23 08:28 RDW 11.6 % (12.1-15.1 ) L 03/31/23 08:28 Plt Count 212 10^3/cmm (157 -399) 03/31/23 08:28 MPV 10.8 fL (7.4-10.4 ) H 03/31/23 08:28 Neut % (Auto) 53.9 % 03/31/23 08:28 Lymph % (Auto) 36.2 % 03/31/23 08:28 [place] % (Auto) 7.9 % 03/31/23 08:28 Eos % (Auto) 1.2 % 03/31/23 08:28 Baso % (Auto) 0.3 % 03/31/23 08:28 Neut # (Auto) 4.67 10^3/uL (1.8 -7.7) 03/31/23 08:28 Lymph # (Auto) 3.1 10^3/uL (0.8- 4.8) 03/31/23 08:28 [place] # (Auto) 0.7 10^3/uL (0.2- 0.9) 03/31/23 08:28 Eos # (Auto) 0.1 10^3/uL (0.0- 0.8) 03/31/23 08:28 Baso # (Auto) 0.0 10^3/uL (0.0- 0.1) 03/31/23 08: Nucleated RBC % (a uto) 0 % 03/31/23 08: Nucleated RBCs # 0.0 /100WBC 03/31/23 08:28 Sodium 141 mmol/L (136-1 45) 03/31/23 08:28 Potassium 3.5 mmol/L (3.5-5 .1) 03/31/23 08:28 Chloride 104 mmol/L (98-10 7) 03/31/23 08:28 Carbon Dioxide 24 mmol/L (22-29) 03/31/23 08:28 Anion Gap 16.5 (5-19) 03/31/23 08:28 BUN 11 mg/dL (6-20) 03/31/23 08:28 Creatinine 0.6 mg/dL (0.5-0. 9) 03/31/23 08:28 GFR Calculation 108.1 mL/min (90- 130) 03/31/23 08:28 Glucose 120 mg/dL (65-115 ) H 03/31/23 08:28 Calculated Osmolal ity 293 mOsm/kg (285- 295) 03/31/23 08:28 Calcium 9.6 mg/dL (8.5-10 .5) 03/31/23 08:28 Total Bilirubin 0.3 mg/dL (0.15-1 .2) 03/30/23 14:21 AST 30 U/L (0-32) 03/30/23 14:21 ALT 32 U/L (0-33) 03/30/23 14:21 Alkaline Phosphata se 89 U/L (35-105) 03/30/23 14:21 Total Protein 7.4 g/dL (6.6-8.7 ) 03/30/23 14:21 Albumin 4.5 g/dL (3.5-5.2 ) 03/30/23 14:21 Globulin 2.9 g/dL (1.3-4.6 ) 03/30/23 14:21 TSH 0.30 uIU/mL (0.27 -4.20) 03/30/23 14:21 HCG, Qual Negative (Negati ve) 04/09/23 09:50 Urine Color Straw (Yellow) 03/30/23 13:26 Urine Appearance Sl hazy (CLEAR) A 03/30/23 13:26 Urine pH 5 (5-7) 03/30/23 13:26 Ur Specific Gravit y 1.015 (1.005-1.0 30) 03/30/23 13:26 Urine Protein Neg (Negative) 03/30/23 13:26 Urine Glucose (UA) Norm (Normal) 03/30/23 13:26 Urine Ketones 1+ (Negative) H 03/30/23 13:26 Urine Blood 2+ (Negative) H 03/30/23 13:26 Urine Nitrate Negative (Negati ve) 03/30/23 13:26 Urine Bilirubin Neg (Negative) 03/30/23 13:26 Urine Urobilinogen Norm mg/dL (Negat gini) 03/30/23 13:26 Ur Leukocyte Twila ase Negative (Negati ve) 03/30/23 13:26 Urine RBC 0-4 /hpf (0-2) H 03/30/23 13:26 Urine WBC Rare /hpf (0-5) 03/30/23 13:26 Ur Squamous Epith Cells 10-15 /hpf (0-5) H 03/30/23 13:26 Amorphous Sediment Not Reportable 03/30/23 13:26 Urine Bacteria 2+ /hpf (NONE) H 03/30/23 13:26 Salicylates < 0.3 mg/dL (3-10 ) L 03/30/23 14:21 Urine Opiates Scre en Negative ng/mL (N egative) 03/30/23 13:26 Acetaminophen < 5.0 ug/mL (10-3 0) L 03/30/23 14:21 Ur Barbiturates Sc reen Negative ng/mL (N egative) 03/30/23 13:26 Ur Phencyclidine S crn Negative ng/mL (N egative) 03/30/23 13:26 Ur Amphetamines Sc reen Negative ng/mL (N egative) 03/30/23 13:26 U Benzodiazepines Scrn Positive ng/mL (N egative) H 03/30/23 13:26 Urine Cocaine Scre en Negative ng/mL (N egative) 03/30/23 13:26 U Marijuana (THC) Screen Positive ng/mL (N egative) H 03/30/23 13:26 Ethyl Alcohol < 10 mg/dL (0-10) 03/30/23 14:21 Vitals: Last Vital Signs Temp 98.1 F 04/19/23 06:00 Pulse 100 04/19/23 06:00 Resp 18 04/19/23 06:00 BP 116/66 04/18/23 20:24 Pulse Ox 99 04/19/23 06:00 O2 Del Method Room Air 04/18/23 14:00 Discharge Plan Discharge Patient Disposition: Home Condition: Stable Prescriptions: New aripiprazole 10 mg Tablet 20 mg PO DAILY 30 Days Qty: 60 1RF clonazepam 0.5 mg Tablet 0.75 mg PO BEDTIME 30 Days Qty: 45 0RF Continued tamsulosin 0.4 mg Capsule 0.4 mg PO 0900,2100 30 Days Qty: 60 1RF hydroxyzine pamoate 50 mg capsule 50 mg PO Q6H PRN (Reason: Anxiety) Discontinued quetiapine 50 mg tablet 50 mg PO BID 30 Days Qty: 60 1RF trazodone 50 mg Tablet 50 mg PO BEDTIME PRN (Reason: Sleep) 30 Days Qty: 30 1RF alprazolam 0.25 mg tablet 0.25 mg PO BID PRN (Reason: Anxiety) 30 Days Qty: 60 1RF clonazepam 0.5 mg tablet 0.5 mg PO DAILY aripiprazole 10 mg tablet 10 mg PO DAILY duloxetine 30 mg capsule,delayed release(DR/EC) 30 mg PO DAILY Discharge Orders: Discharge Order (Routine); Ordered 04/19/23 Ordered By: Boyd Santiago [facility] [Other] - 05/07/23 10:00 am (Follow up with Kun Elizabeth. ) [facility] [Other] - 04/24/23 1:00 pm (Follow up with Connie Kimbrough.) [facility] [Other] (Office was closed due to Holiday. We will set up Initial appointment on Saturday and call you with appointment date. ) Discharge Diet: Usual diet Discharge Activity: Resume usual activity Patient Instructions: Clonazepam (By mouth) (Klonopin), Aripiprazole (By mouth) (Stephen Mitchell Discmeldebbie), Hyponatremia (ED), Benzodiazepine Use Disorder (ED), Dementia (ED), Non-diabetic Hypoglycemia (ED), Hypoglycemia in a Person with Diabetes (ED), Concussion (ED), Alcohol Intoxication (ED), Subarachnoid Hemorrhage (GEN), Altered Mental Status (ED), Opioid Safety Discharge Attestations NPU Time Spent in Discharge Care*: less than 30 min Specific Discharge Activities: Specific discharge activities: educating patient, discussing with case checker/social workers/dc planners and documenting/other paperwork Coding [facility] Diagnoses Psychotic disorder F29
[2023-04-19 12:33] VITALS: PULSE 100; RESP 18; TEMP 36.7; O2SAT 99
== END 2023-04-19 13:23 | disposition home or self-care (01) | DRG 885 ==
LOC: ER 14:23 → NP 14:38
PROVIDERS: Admitting Provider Psychiatry & Neurology Psychiatry; Emergency Provider Internal Medicine; Visit Provider Psychiatry & Neurology Psychiatry
DX: F29 Unspecified psychosis not due to a substance or known physiological condition (principal); Z81.1 Family history of alcohol abuse and dependence
CPT/HCPCS: 36415; 51798; 80048; 80053; 80306; 80307; 81001; 81025; 84443; 85025; 93005; 96372; 97150; 97165; 99285; J3486; Q0163

== ENCOUNTER 2024-04-20 18:46 | Inpatient (IN) | payer MEDICAID, SELFPAY ==
[2024-04-20] VITALS (8 sets, daily range): BP systolic 120–156; BP diastolic 76–121; PULSE 89–120; RESP 14–18; TEMP 35.9–36.7; O2SAT 94–98; BMI 26.5
--- NOTE | 2024-04-20 19:04 | W.ED.PSYCHS ---
HPI - Psych General: Chief Complaint: Psychiatric Symptoms Stated Complaint: delusional, combative Time Seen by Provider: 04/20/24 19:00 History of Present Illness: 48-year-old female with a history of psychosis in the past who presents the emergency room almost a year to the date from her last admission for an acute psychotic event with acute psychosis. Apparently over the last couple days she has become more agitated with flight of ideas and manic behavior. EMS reports they were called out yesterday on her and ended up leaving her home. Today they were called out and she was threatening to blow up her family and kill people. Again flight of ideas and Carlo. On the ambulance apparently she jumped up on her hands and knees on the cot and told EMS that she was going to excise her demons and then jumped on him and began to scratch and she ended up getting ketamine on her way here. She is fairly sedate on presentation Related Data Home Medications Medication Instructions Recorded Confirmed hydroxyzine pamoate 50 mg capsule 50 mg PO Q6H PRN Anxiety 03/30/23 03/30/23 Previous Rx's Medication Instructions Recorded tamsulosin 0.4 mg capsule 0.4 mg PO 0900,2100 30 days #60 11/23/22 caps aripiprazole 10 mg tablet 20 mg (2 x 10 mg) PO DAILY 30 days 04/19/23 #60 tabs Allergies Allergy/AdvReac Type Severity Reaction Status Date / Time haloperidol [From Haldol] Allergy Unknown Verified 03/30/23 12:03 Penicillins Allergy ALGY-Rash Verified 03/30/23 12:03 Sulfa (Sulfonamide Allergy ALGY-Rash Verified 03/30/23 12:03 Antibiotics) Review of Systems General: Reports: ROS unobtainable due to medical condition and ROS unobtainable due to mental status [facility] ED PFSH: Medical History (Updated 04/20/24 @ 20:33 by Ju Cervantes MD) Psychiatric care Physical Exam Narrative: EXAM NARRATIVE: General: Somnolent but arousable Skin: Warm, dry Head: Normocephalic, atraumatic. Neck: Supple, trachea midline. Eye: Extraocular movements are intact. Ears, nose, mouth and throat: Dry oral mucosa. Cardiovascular: Regular rate and rhythm, Normal peripheral perfusion. Respiratory: Lungs are clear to auscultation, respirations are non-labored, breath sounds are equal, Symmetrical chest wall expansion. Gastrointestinal: Soft, Nontender, Non distended, Normal bowel sounds. Musculoskeletal: no deformity. Neurological: Somnolent but arouses, No obvious focal neurological deficit observed. Psychiatric: unable to assess. Course Vital Signs: Vital signs: Vital Signs Temperature 98.1 F 04/20/24 18:47 Pulse Rate 105 H 04/20/24 20:22 Respiratory Rate 18 04/20/24 20:22 Blood Pressure 130/104 04/20/24 20:22 Pulse Oximetry 98 04/20/24 20:22 Oxygen Delivery Me thod Room Air 04/20/24 20:22 MDM - Psych Medical Decision Making Medical decision making: Differential diagnosis for patient with reported psychosis with plan for psychiatric admission including but not limited to and based on the above HPI, review of systems and physical exam: concerns for infection, alcohol intoxication, cardiac issues or other medical problems prior to psychiatric admission. Orders placed to evaluate differential diagnosis based on the above differential, HPI and physical exam labwork, ekg ordered to evaluate the pathologies and to clear the patient medically prior to psychiatric admission Lab Review: Laboratory results were reviewed and interpreted by myself the emergency room physician. - Medically cleared. - EKG shows no ischemic changes. - Blood alcohol level is negative, as well as salicylate and Tylenol. - Drug screen is positive for marijuana and benzodiazepine - No signs of infection, urinalysis clear and white count is not elevated - No anemia. - BUN and creatinine are within normal limits. I reviewed the patient's medical record. Consultation: I spoke with Dr. Santiago is on-call for the psychiatry service who agrees to admission. Assessment and plan: Acute psychosis ?Javi LICEA in the emergency room. Patient was becoming agitated again -Admission to neuropsychiatric unit for continued evaluation and treatment. - All lab work was reviewed and interpreted personally by myself, the ER physician - Evaluation and treatment of this problem were appropriate in the emergency setting Lab Data 04/20/24 19:35 04/20/24 19:35 Laboratory Results WBC 12.87 10^3/uL (3.29-11.43) H 04/20/24 19:35 RBC 4.86 10^6/uL (3.85-5.65) 04/20/24 19:35 Hgb 14.20 g/dL (11.27-16.99) 04/20/24 19:35 Hct 41.8 % (36-47) 04/20/24 19:35 MCV 86.0 fl (85-98) 04/20/24 19:35 MCH 29.2 pg (27-33) 04/20/24 19:35 MCHC 34.0 g/dL (30-55) 04/20/24 19:35 RDW 12.1 % (12.1-15.1) 04/20/24 19:35 Plt Count 258 10^3/cmm (157-399) 04/20/24 19:35 MPV 10.4 fL (7.4-10.4) 04/20/24 19:35 Neut % (Auto) 73.4 % 04/20/24 19:35 Lymph % (Auto) 18.4 % 04/20/24 19:35 [place] % (Auto) 6.9 % 04/20/24 19:35 Eos % (Auto) 0.5 % 04/20/24 19:35 Baso % (Auto) 0.4 % 04/20/24 19:35 Neut # (Auto) 9.45 10^3/uL (1.8-7.7) H 04/20/24 19:35 Lymph # (Auto) 2.4 10^3/uL (0.8-4.8) 04/20/24 19:35 [place] # (Auto) 0.9 10^3/uL (0.2-0.9) 04/20/24 19:35 Eos # (Auto) 0.1 10^3/uL (0.0-0.8) 04/20/24 19:35 Baso # (Auto) 0.1 10^3/uL (0.0-0.1) 04/20/24 19:35 Nucleated RBC % (auto) 0 % 04/20/24 19:35 Nucleated RBCs # 0.0 /100WBC 04/20/24 19:35 Sodium 139 mmol/L (136-145) 04/20/24 19:35 Potassium 4.3 mmol/L (3.5-5.1) 04/20/24 19:35 Chloride 105 mmol/L (98-107) 04/20/24 19:35 Carbon Dioxide 24 mmol/L (22-29) 04/20/24 19:35 Anion Gap 14.3 (5-19) 04/20/24 19:35 BUN 10 mg/dL (6-20) 04/20/24 19:35 Creatinine 0.8 mg/dL (0.5-0.9) 04/20/24 19:35 GFR Calculation 77.2 mL/min (90-130) L 04/20/24 19:35 Glucose 116 mg/dL (65-115) H 04/20/24 19:35 Calculated Osmolality 288 mOsm/kg (285-295) 04/20/24 19:35 Calcium 9.7 mg/dL (8.5-10.5) 04/20/24 19:35 Total Bilirubin 0.2 mg/dL (0.15-1.2) 04/20/24 19:35 AST 22 U/L (0-32) 04/20/24 19:35 ALT 22 U/L (0-33) 04/20/24 19:35 Alkaline Phosphatase 97 U/L (35-105) 04/20/24 19:35 Total Protein 7.6 g/dL (6.6-8.7) 04/20/24 19:35 Albumin 4.3 g/dL (3.5-5.2) 04/20/24 19:35 Globulin 3.3 g/dL (1.3-4.6) 04/20/24 19:35 TSH 1.22 uIU/mL (0.27-4.20) 04/20/24 19:35 HCG, Qual Negative (Negative) 04/20/24 19: Urine Color Yellow (Yellow) 04/20/24 19: Urine Appearance Clear (CLEAR) 04/20/24 19: Urine pH 6.5 (5-7) 04/20/24 19: Ur Specific [place] 1.007 (1.005-1.030) 04/20/24 19: Urine Protein Negative (Negative) 04/20/24 19: Urine Glucose (UA) Negative (Normal) 04/20/24 19: Urine Ketones Negative (Negative) 04/20/24 19: Urine Blood 1+ (Negative) A 04/20/24 19: Urine Nitrate Negative (Negative) 04/20/24 19: Urine Bilirubin Negative (Negative) 04/20/24 19:01 Urine Urobilinogen 0.2 mg/dL (Negative) 04/20/24 19:01 Ur Leukocyte Esterase Negative (Negative) 04/20/24 19:01 Urine RBC 3-5 /hpf (0-2) 04/20/24 19:01 Urine WBC 0-5 /hpf (0-5) 04/20/24 19:01 Ur Squamous Epith Cells 0-5 /hpf (0-5) 04/20/24 19:01 Amorphous Sediment Not Reportable 04/20/24 19:01 Urine Bacteria None seen /hpf (NONE) 04/20/24 19:01 Hyaline Casts 1.65 /lpf 04/20/24 19:01 Salicylates < 0.3 mg/dL (3-10) L 04/20/24 19:35 Urine Opiates Screen Negative ng/mL (Negative) 04/20/24 19:01 Acetaminophen < 5.0 ug/mL (10-30) L 04/20/24 19:35 Ur Barbiturates Screen Negative ng/mL (Negative) 04/20/24 19:01 Ur Phencyclidine Scrn Negative ng/mL (Negative) 04/20/24 19:01 Ur Amphetamines Screen Negative ng/mL (Negative) 04/20/24 19:01 U Benzodiazepines Scrn Positive ng/mL (Negative) H 04/20/24 19:01 Urine Cocaine Screen Negative ng/mL (Negative) 04/20/24 19:01 U Marijuana (THC) Screen Positive ng/mL (Negative) H 04/20/24 19:01 Ethyl Alcohol < 10 mg/dL (0-10) 04/20/24 19:35 No radiology studies performed this visit Discharge Plan Discharge Patient Disposition: Admitted As Inpatient Admit Provider: Boyd Santiago Clinical Impression: Acute psychosis, Psychotic disorder Condition: Stable Coding Level of Care Code ED [employer] Process Technician for Meli Davidson
--- NOTE | 2024-04-20 19:07 | PC.NURSE ---
PT is sedated with ketamine and not able to answer the suicidal questions
[2024-04-20 19:15] LABS: Bilirubin Urine Negative (Negative); Blood Urine 1+ (Negative); Glucose Urine UA Negative (Normal); Ketones Urine Negative (Negative); Leukocyte Esterase Urine Negative (Negative); Nitrate Urine Negative (Negative); Protein Urine Negative (Negative); Specific Gravity, Urine 1.007 (1.005-1.030); Urine Appearance Clear (CLEAR); Urine Color Yellow (Yellow); Urobilinogen Urine 0.2 mg/dL (Negative); pH Urine 6.5 (5-7)
[2024-04-20 19:19] LABS: HCG Qualitative Urine. Negative (Negative)
[2024-04-20 19:20] LABS: Bacteria Urine None Seen /hpf; Hyaline Casts Urine 1.65 /lpf; Squamous Epithelial Cell Urine 0-5 /hpf (0-5); WBC Urine 0-5 /hpf (0-5)
[2024-04-20 19:24] LABS: Amphetamines Screen Urine Negative (Negative); Barbiturates Screen Urine Negative (Negative); Benzodiazepines Screen Urine Positive (Negative); Cocaine Screen Urine Negative (Negative); Opiate Screen Urine Negative (Negative); PCP Screen Urine Negative (Negative); THC Screen Urine Positive (Negative)
[2024-04-20 19:42] LABS: Basophils # 0.1 10^3/uL (0.0-0.1); Basophils % 0.4 %; Eosinophils # 0.1 10^3/uL (0.0-0.8); Eosinophils % 0.5 %; Hematocrit 41.8 % (36-47); Lymphocytes # 2.4 10^3/uL (0.8-4.8); Lymphocytes % 18.4 %; Mean Corpuscular Hemoglobin 29.2 pg (27-33); Mean Platelet Volume 10.4 fL (7.4-10.4); Monocytes # 0.9 10^3/uL (0.2-0.9); Monocytes % 6.9 %; Neutrophils # 9.45 10^3/uL (1.8-7.7); Neutrophils % 73.4 %; Nucleated Red Blood Cells % 0 %; Platelet Count 258 10^3/cmm (157-399); Red Blood Count 4.86 10^6/uL (3.85-5.65); Red Cell Distribution Width 12.1 % (12.1-15.1); White Blood Count 12.87 10^3/uL (3.29-11.43)
--- NOTE | 2024-04-20 20:07 | ECG_ITS ---
[facility]: [facility] Pat Name: Marialuisa José Department: Room: Gender: Female Optics Technical Officer: : 1975 Requested By: Ju Ambriz Order Number: [id number] Huff MD: Rajan Casey M.D. Measurements Intervals [place] Rate: 110 P: 65 MS: 150 QRS: 46 QRSD: 73 T: 61 QT: 337 QTc: 457 Interpretive Statements SINUS TACHYCARDIA ABNORMAL RHYTHM ECG Compared to ECG 03/30/2023 13:08:33 No significant changes Electronically Signed On 04-22-2024 19:13:16 DATA PROCESSING CONTROL CLERK by Rajan Casey M.D. [email or web address]
[2024-04-20 20:14] LABS: Alanine Aminotransferase 22 U/L (0-33); Albumin Level 4.3 g/dL (3.5-5.2); Alkaline Phosphatase 97 U/L (35-105); Anion Gap 14.3 (5-19); Aspartate Amino Transferase 22 U/L (0-32); Blood Urea Nitrogen 10 mg/dL (6-20); Calcium 9.7 mg/dL (8.5-10.5); Carbon Dioxide 24 mmol/L (22-29); Chloride 105 mmol/L (98-107); Creatinine Clr Calc Pharmacy 81.3643; Globulin 3.3 g/dL (1.3-4.6); Glomerular Filtration Rate 77.2 mL/min (90-130); Glucose 116 mg/dL (65-115); Osmolality Calculated 288 mOsm/kg (285-295); Potassium 4.3 mmol/L (3.5-5.1); Sodium 139 mmol/L (136-145); Thyroid Stimulating Hormone 1.22 uIU/mL (0.27-4.20); Total Bilirubin 0.2 mg/dL (0.15-1.2); Total Protein 7.6 g/dL (6.6-8.7)
[2024-04-20 20:15] LABS: Acetaminophen < 5.0 ug/mL (10-30); Alcohol Level < 10 mg/dL (0-10); Salicylate < 0.3 mg/dL (3-10)
[2024-04-20] MEDS: LORazepam 2 mg/mL INJ 1 mL IM (20:17)
[2024-04-20] MEDS: ziprasidone 20 mg/mL SDV IM (20:19)
[2024-04-20] MEDS: water for injection-sterile 10 ML 1.2 ML (20:19)
[2024-04-20 20:38] LABS: Add Urine Culture? No
--- NOTE | 2024-04-20 20:42 | PC.NURSE ---
96 HH Pt served with copy of 96 HH by this RN and security. Pt is awake and unable to answer any question appropriately. Pt speech is disorganized and delayed. Pt asked if she knew where she was, pt response was poop . Pt unable to follow commands and moving all extremities is disorganized manner.
[2024-04-21] MEDS: OLANZapine 5 mg ODT PO ×3 (04:25→22:11)
[2024-04-21 06:00] VITALS: BP 127/82; PULSE 103; RESP 18; TEMP 36.6; O2SAT 98
[2024-04-21] MEDS: nicotine 2 mg Gum BUCCAL ×2 (10:50→17:47)
[2024-04-21 14:00] VITALS: BP 124/75; PULSE 116; RESP 18; TEMP 36.3; O2SAT 98
[2024-04-21] MEDS: ziprasidone hcl 20 mg Capsule PO (14:16)
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
[2024-04-21] MEDS: lurasidone 20 mg Tablet 40 MG PO (17:19)
[2024-04-21] MEDS: acetaminophen 325 mg Tablet 650 MG PO (22:11)
--- NOTE | 2024-04-21 22:18 | PC.NURSE ---
PT UP TO DESK RAMBLING EXCESSIVELY, AND CRYING. ZYPREXA 5MG AND TYLENOL 650MG GIVEN.
[2024-04-21] MEDS: trazodone 50 mg Tablet PO ×2 (22:43→23:00)
[2024-04-21] MEDS: diphenhydrAMINE 50 mg/mL SDV 1mL IM (23:25)
[2024-04-21] MEDS: LORazepam 2 mg/mL INJ 1 mL IM (23:25)
--- NOTE | 2024-04-21 23:27 | PC.NURSE ---
PT CONTINUES WITH MANIC BEHAVIOR. DR WOODS NOTIFIED THAT PT WAS GIVEN TYLENOL AND ZYPREXA AT 2211, AND TRAZODONE AT APPROXIMATELY 2300. REQUEST MADE IF ALRIGHT TO GIVE PT ATIVAN 2MG IM AND BENADRYL 50MG IM AT THIS CLOSE OF TIME. DE AGREED, MEDS GIVEN.
[2024-04-22] MEDS: trazodone 50 mg Tablet PO (01:17)
[2024-04-22] MEDS: ibuprofen 600 mg Tablet PO (02:01)
--- NOTE | 2024-04-22 04:51 | PC.NURSE ---
After sleeping for a couple hours off and on, patient wakes up in slightly improved mood, she is no longer rambling at random about non connecting things and has improved gait, want keeps repeating the want to go home with family and wants to call them to come and get her. This nurse informs patient that the phone will get turned on at 7am, and the doctor has to see her in the morning. Patient get upset and continues to pace hallways and go in and out of her room. Patient states that she wants a test since her menstrual cycle ended yesterday, this nurse said to patient that this nurse will pass that along to day shift to ask the doctor about obtaining a test.
[2024-04-22 06:00] VITALS: BP 101/72; PULSE 120; RESP 16; TEMP 36.9; O2SAT 95
[2024-04-22] MEDS: nicotine 21 mg Patch 1 PATCH TRANSDERMA (06:40)
[2024-04-22] MEDS: OLANZapine 5 mg ODT PO ×3 (08:18→20:35)
[2024-04-22] MEDS: diphenhydrAMINE 25 mg Capsule PO ×2 (09:07→20:34)
[2024-04-22] MEDS: ziprasidone hcl 20 mg Capsule PO ×2 (09:07→20:36)
[2024-04-22] MEDS: ARIPiprazole 10 mg Tablet PO (09:07)
--- NOTE | 2024-04-22 10:12 | PC.NURSE ---
PT CURRENTLY DENIES SI/HI/AH/VH. PT CURRENTLY DENIES DEPRESSION AND ANXIETY. PT CURRENTLY APPEAR TO BE RESPONDING HEAVILY TO INTERNAL STIMULI. PT IS RAMBLING AND PACING CONSTANTLY. PT WAS COOPERATIVE WITH MEDICATIONS HOWEVER ASSESSMENT INFORMATION APPEARS SCATTERED AND PT STRUGGLES TO REMAIN ON TASK AND CONTINUE CONVERSATION. PT CURRENT NEEDS ARE MET AT THIS TIME.
[2024-04-22] MEDS: nicotine 4 mg lozenge MUCOUS MEM ×3 (13:32→19:21)
[2024-04-22 14:00] VITALS: BP 129/84; PULSE 108; RESP 18; TEMP 36.6; O2SAT 97
[2024-04-22] MEDS: docusate sodium 100 mg Capsule PO (15:25)
--- NOTE | 2024-04-22 17:35 | P.NPUPN_ITS ---
Subjective NPU 2 Subjective: 47-year-old white female previously admi tted with psychosis with no substance use admitted once again with bizarre behaviors and psychosis. Patient continued to have extended conversations and appeared at times to be engaging in conversation with those that were not there. She had been unable to answer any clear questions regarding her current feelings. She had been struggling with maintaining boundaries with other patients as she appeared to require significant redirection. She had refused any medications at this time. She had struggles with falling asleep last night and received as needed medications including Geodon for agitation. Mental Status Exam 2 MSE Comments: This is a well-nourished, well-developed white female in hospital scrubs with poor hygiene and poor eye contact, appearing older than her stated age. No abnormal involuntary motor movements other than severe agitation as well as some aimless/purposeless walking noted. She was semi-cooperative with exam in mild distress. Her speech was less monotone in quality with increased rate and normal volume with some notable pauses possibly consistent with thought blocking. Word salad was present along with use of nonsequiturs.Her mood was described as good. Her affect was bizarre. Thought process was completely disorganized with derailment noted. Thought content: She denied suicidal or homicidal ideation, There were bizarre delusions noted. She denied auditory or visual hallucinations but at times appeared like she was responding to internal stimuli. Attention and concentration were impaired and memory appeared mostly unreliable, but none were formally tested. She is alert and oriented to person, year and month only. Her insight was poor. Her judgment was poor. Her impulse control appeared impaired. Vitals/I&O/Wt Last Vital Signs Temp 97.8 F 04/22/24 14:00 Pulse 108 H 04/22/24 14:00 Resp 18 04/22/24 14:00 BP 129/84 04/22/24 14:00 Pulse Ox 97 04/22/24 14:00 O2 Del Method Room Air 04/22/24 14:00 04/22/24 04/22/24 04/22/24 06:59 14:59 22:59 Intake Total 960 / 960 Balance 960 / 960 Weight last 48 hrs Weight 68.039 kg Data NPU 04/20/24 19:35 04/20/24 19:35 A&P Assessment and plan (1) Acute psychosis: (2) Psychotic disorder: (3) Substance abuse: Plan This is a 48-year-old white female presenting with psychosis and bizarre behaviors consistent with her last hospitalization 1 year ago currently noncompliant with medication at this time. 1. D/C Latuda and restart abilify 15mg daily. 2. Encourage individual, group and milieu therapies. 3. Continue every 15 checks for safety. 4. Will attempt to gather collateral information. Involuntary Hold Information 2 96 Hour Hold: 96 Hour Involuntary Admission: No Other Hold: Hold End Date: 04/28/24 Attestations NPU 2 Medical Necessity Statement*: Inpatient hospitalization is medically necessary and the clinically appropriate intervention at this time. We will monitor initiate medications while making changes as indicated. The patient's likely length of stay is 7-10 days. Coding Level of Care Code Acute Code for [facility] Diagnoses Acute psychosis F23 Psychotic disorder F29 Substance abuse F19.10
[2024-04-22 19:42] VITALS: BP 120/74; PULSE 130; RESP 20; O2SAT 98
[2024-04-22] MEDS: benztropine 1 mg Tablet PO (20:35)
[2024-04-22] MEDS: CLONazepam 1 mg Tablet PO (20:44)
[2024-04-22] MEDS: polyethylene glycol 3350 Pkt 17 gm PO (20:50)
[2024-04-23] MEDS: acetaminophen 325 mg Tablet 650 MG PO (02:41)
[2024-04-23] MEDS: trazodone 50 mg Tablet PO ×2 (02:41→21:01)
[2024-04-23] MEDS: OLANZapine 5 mg ODT PO ×2 (02:41→21:02)
[2024-04-23] MEDS: nicotine 4 mg lozenge MUCOUS MEM ×3 (02:44→21:02)
[2024-04-23 06:00] VITALS: BP 119/67; PULSE 94; RESP 18; TEMP 36.6; O2SAT 100
[2024-04-23] MEDS: nicotine 2 mg Gum BUCCAL ×2 (08:14→16:48)
[2024-04-23] MEDS: ziprasidone hcl 20 mg Capsule PO ×2 (08:14→21:02)
[2024-04-23] MEDS: CLONazepam 1 mg Tablet PO ×2 (08:14→21:01)
--- NOTE | 2024-04-23 08:19 | PC.NURSE ---
Patient refused abilify and cogentin, saying thank you, but I don't think I need those. This nurse provided education about the purpose of the medications, but patient said, just give those to somebody else. Dr. vo notified.
[2024-04-23] MEDS: polyethylene glycol 3350 Pkt 17 gm PO (09:33)
--- NOTE | 2024-04-23 09:34 | PC.NURSE ---
Patient reports that her last BM was last night. Patient requesting Miralax for constipation, reports discomfort. BS active in all four quadrants
[2024-04-23] MEDS: benztropine 1 mg Tablet PO (10:33)
--- NOTE | 2024-04-23 12:22 | PC.NURSE ---
Kurtis (son) phone number is [phone]
--- NOTE | 2024-04-23 13:34 | P.NPUPN_ITS ---
Subjective NPU 2 Subjective: 48-year-old white female previously admi tted with psychosis with no substance use admitted once again with bizarre behaviors and psychosis. Patient remained excessively intrusive. She had wished the clinical writer of this note that I be blast for ever more while remaining without boundaries. She had attempted to go into others' rooms without any regards to personal space. The patient had reported that God is with us . The patient reported struggles with the patient had reported having problems with trusting others. Mental Status Exam 2 MSE Comments: This is a well-nourished, well-developed white female in hospital scrubs with poor extremely poor hygiene and poor eye contact, appearing older than her stated age. No abnormal involuntary motor movements other than severe agitation as well as some aimless/purposeless walking noted. She was semi-cooperative with exam in mild distress. Her speech was less monotone in quality with increased rate and normal volume with some notable pauses possibly consistent with thought blocking. Word salad was present along with use of nonsequiturs.Her mood was not described today. Her affect was odd and subdued. Thought process was completely disorganized. Thought content: She denied suicidal or homicidal ideation, There were bizarre delusions noted. She denied auditory or visual hallucinations but at times appeared like she was responding to internal stimuli. There was evidence of hyperreligiousity. Attention and concentration were impaired and memory appeared mostly unreliable, but none were formally tested. She is alert and oriented to person, year and month only. Her insight was poor. Her judgment was poor. Her impulse control appeared impaired. Vitals/I&O/Wt Last Vital Signs Temp 98 F 04/23/24 06:00 Pulse 94 04/23/24 06:00 Resp 18 04/23/24 06:00 BP 119/67 04/23/24 06:00 Pulse Ox 100 04/23/24 06:00 O2 Del Method Room Air 04/23/24 06:00 Data NPU 04/20/24 19:35 04/20/24 19:35 A&P Assessment and plan (1) Acute psychosis: (2) Psychotic disorder: (3) Substance abuse: Plan This is a 48-year-old white female presenting with psychosis and bizarre behaviors consistent with her last hospitalization 1 year ago currently noncompliant with medication at this time. 1. Continue Abilify 15mg daily. Prn medications including zyprexa and geodon for agitation. 2. Encourage individual, group and milieu therapies. 3. Continue every 15 checks for safety. 4. Will attempt to gather collateral information. Involuntary Hold Information 2 96 Hour Hold: 96 Hour Involuntary Admission: No Other Hold: Hold End Date: 04/28/24 Attestations NPU 2 Medical Necessity Statement*: Inpatient hospitalization is medically necessary and the clinically appropriate intervention at this time. We will monitor initiate medications while making changes as indicated. The patient's likely length of stay is 7-10 days. Coding Level of Care Code Acute Code for [facility] Diagnoses Acute psychosis F23 Psychotic disorder F29 Substance abuse F19.10
[2024-04-23] MEDS: cetylpyridinium Lozenge 1 EACH MUCOUS MEM (13:50)
[2024-04-23 14:00] VITALS: BP 111/64; PULSE 100; RESP 18; TEMP 36.4; O2SAT 96
[2024-04-23 20:18] VITALS: BP 153/83; PULSE 117; RESP 18; O2SAT 96
[2024-04-23] MEDS: diphenhydrAMINE 25 mg Capsule PO (21:01)
[2024-04-23] MEDS: alum-mag-hydroxide-sime 30 mL UDC PO (21:02)
[2024-04-24] MEDS: OLANZapine 5 mg ODT PO ×2 (02:33→11:45)
[2024-04-24] MEDS: ibuprofen 600 mg Tablet PO ×2 (02:33→22:05)
--- NOTE | 2024-04-24 06:09 | PC.NURSE ---
vs not collected per charge due to patient being up most of the night resp 16
[2024-04-24] MEDS: CLONazepam 1 mg Tablet PO ×2 (08:28→22:04)
[2024-04-24] MEDS: benztropine 1 mg Tablet PO ×2 (08:47→22:05)
[2024-04-24] MEDS: nicotine 2 mg Gum BUCCAL ×2 (08:47→18:17)
--- NOTE | 2024-04-24 10:58 | P.NPUPN_ITS ---
Subjective NPU 2 Subjective: 48-year-old white female previously admi tted with psychosis with no substance use admitted once again with bizarre behaviors and psychosis. Patient had remained difficult to redirect. She had difficulties with sleep. She had required multiple as needed medications for agitation and irritability. The patient had continued to rant about various subjects involving God and latter day. Patient had refused abilify and complained that her legs were hurting. She had refused cogentin as well. Mental Status Exam 2 MSE Comments: This is a well-nourished, well-developed white female in hospital scrubs with extremely poor hygiene and poor eye contact, appearing older than her stated age. No abnormal involuntary motor movements other than agitation as well as some aimless/purposeless walking noted. She was semi-cooperative with exam in mild distress. Her speech was less monotone in quality with increased rate and normal volume with some notable pauses possibly consistent with thought blocking. Word salad was present along with use of nonsequiturs.Her mood was not described today. Her affect was odd and subdued. Thought process was completely disorganized. Thought content: She denied suicidal or homicidal ideation, There were bizarre delusions noted. She denied auditory or visual hallucinations but at times appeared like she was responding to internal stimuli. There was evidence of hyperreligiousity. Attention and concentration were impaired and memory appeared mostly unreliable, but none were formally tested. She is alert and oriented to person, year and month only. Her insight was poor. Her judgment was poor. Her impulse control appeared impaired. Vitals/I&O/Wt Last Vital Signs Temp 97.6 F 04/23/24 14:00 Pulse 117 H 04/23/24 20:18 Resp 18 04/23/24 20:18 BP 153/83 04/23/24 20:18 Pulse Ox 96 04/23/24 20:18 O2 Del Method Room Air 04/23/24 20:18 04/23/24 04/24/24 04/24/24 22:59 06:59 14:59 Intake Total 480 / 480 Balance 480 / 480 Data NPU 04/20/24 19:35 04/20/24 19:35 A&P Assessment and plan (1) Acute psychosis: (2) Psychotic disorder: (3) Substance abuse: Plan This is a 48-year-old white female presenting with psychosis and bizarre behaviors consistent with her last hospitalization 1 year ago currently noncompliant with medication at this time. 1. Continue Abilify 15mg daily. Prn medications including zyprexa and geodon for agitation. Patient will require forced medication and continued hospital stay. 2. Encourage individual, group and milieu therapies. 3. Continue every 15 checks for safety. 4. Will attempt to gather collateral information. Involuntary Hold Information 2 96 Hour Hold: 96 Hour Involuntary Admission: No Other Hold: Hold End Date: 04/28/24 Attestations NPU 2 Medical Necessity Statement*: Inpatient hospitalization is medically necessary and the clinically appropriate intervention at this time. We will monitor initiate medications while making changes as indicated. The patient's likely length of stay is 7-10 days. Coding Level of Care Code Acute Code for [facility] Diagnoses Acute psychosis F23 Psychotic disorder F29 Substance abuse F19.10
[2024-04-24 14:00] VITALS: BP 94/64; PULSE 110; RESP 18; TEMP 36.5; O2SAT 98
[2024-04-24 21:33] VITALS: BP 122/77; PULSE 104; RESP 16; TEMP 36.4; O2SAT 95
[2024-04-24] MEDS: ziprasidone hcl 20 mg Capsule PO (22:05)
[2024-04-24] MEDS: trazodone 50 mg Tablet PO (22:05)
[2024-04-24] MEDS: diphenhydrAMINE 25 mg Capsule PO (22:05)
[2024-04-24] MEDS: nicotine 4 mg lozenge MUCOUS MEM (22:05)
[2024-04-25 05:17] VITALS: BP 105/68; PULSE 88; RESP 16; TEMP 36.4; O2SAT 98
[2024-04-25] MEDS: CLONazepam 1 mg Tablet PO ×2 (08:21→20:23)
--- NOTE | 2024-04-25 08:28 | PC.NURSE ---
refused scheduled Abilify this morning, also refused PRN vistaril offered, only willing to take scheduled Klonopin at this time
[2024-04-25] MEDS: nicotine 4 mg lozenge MUCOUS MEM ×3 (08:58→17:53)
[2024-04-25] MEDS: calcium carbonate 500 mg Chew Tablet PO (11:12)
--- NOTE | 2024-04-25 11:12 | PC.NURSE ---
PRN TUMS 500 MG CHEWABLE TABLET GIVEN PO PER PT C/O INDIGESTION
[2024-04-25 14:00] VITALS: BP 118/72; PULSE 113; RESP 17; O2SAT 98
[2024-04-25] MEDS: ibuprofen 600 mg Tablet PO (14:39)
--- NOTE | 2024-04-25 17:55 | W.PM.NPUPNS ---
Subjective NPU Subjective: Patient presented today reporting that she is doing fine. She is very focused on getting to her significant other who is supposed to have knee surgery at the beginning of the week. She reports that she needs to support him and be discharged. Staff was able to talk to significant other and he reports he will be 5 and that we should focus on making sure that she is well. She has been refusing her Abilify reporting that other medications are working fine. We discussed concerns about being able to control her psychosis if she is not on an effective medication and the concerns exist about her not being on 1 with the capacity for a long-acting injectable. We agreed we would evaluate how she is doing and make a determination of whether discharge is feasible or whether she needs a 21-day hold filing which is more likely for forced medication and assessment of improvement. Mental Status Exam MSE Comments: This is a well-nourished, well-developed white female in hospital scrubs with extremely poor hygiene and poor eye contact. No abnormal involuntary motor movements other than agitation as well as some aimless/purposeless walking noted. She was semi-cooperative with exam in mild to moderate distress. Her speech was mostly normal rate and volume with some notable pauses possibly consistent with thought blocking. Her mood was described as better. Her affect was odd and subdued. Thought process was completely more organized than previously described. Thought content: She denied suicidal or homicidal ideation, There were bizarre delusions noted. She denied auditory or visual hallucinations but at times appeared like she was responding to internal stimuli. There was evidence of hyperreligiousity. Attention and concentration were impaired and memory appeared mostly unreliable, but none were formally tested. She is alert and oriented to person, year and month only. Her insight was poor. Her judgment was poor. Her impulse control appeared impaired. Vitals/I&O/Wt Last Vital Signs Temp 97.5 F L 04/25/24 05:17 Pulse 113 H 04/25/24 14:00 Resp 17 04/25/24 14:00 BP 118/72 04/25/24 14:00 Pulse Ox 98 04/25/24 14:00 O2 Del Method Room Air 04/25/24 14:00 04/25/24 04/25/24 04/25/24 06:59 14:59 22:59 Intake Total 480 / 480 Balance 480 / 480 Data NPU 04/20/24 19:35 04/20/24 19:35 A&P Assessment and plan (1) Acute psychosis: (2) Psychotic disorder: (3) Substance abuse: Plan This is a 48-year-old white female presenting with psychosis and bizarre behaviors consistent with her last hospitalization 1 year ago currently noncompliant with medication at this time. 1. Continue Abilify 15mg daily. Prn medications including zyprexa and geodon for agitation. Patient will require forced medication and continued hospital stay as she is currently refusing her antipsychotic. 2. Encourage individual, group and milieu therapies. 3. Continue every 15 checks for safety. 4. Was able to talk to her significant other. Involuntary Hold Information 96 Hour Hold: 96 Hour Involuntary Admission: No Other Hold: Hold End Date: 04/28/24 Attestations NPU Medical Necessity Statement*: Inpatient hospitalization is medically necessary and the clinically appropriate intervention at this time. We will monitor initiate medications while making changes as indicated. The patient's likely length of stay is 7-10 days. Coding Level of Care Code Acute Code for [facility]wd Diagnoses Acute psychosis F23 Psychotic disorder F29 Substance abuse F19.10
[2024-04-25 19:37] VITALS: BP 112/73; PULSE 110; RESP 16; TEMP 36.6; O2SAT 100
[2024-04-25] MEDS: ziprasidone hcl 20 mg Capsule PO (20:23)
[2024-04-25] MEDS: trazodone 50 mg Tablet PO (20:23)
[2024-04-26 06:00] VITALS: BP 90/56; PULSE 88; RESP 16; TEMP 36.4; O2SAT 98
--- NOTE | 2024-04-26 07:30 | PC.NURSE ---
When asked if she was experiencing any thoughts of hurting herself or others she replied, oh hell no. Then when asked if she was seeing or hearing anything out of the ordinary she replied, just the Lord, helping me. For God. I woke up on the wrong side of the bed. I guess it's Vaughn. They fixed his murmur. 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 When she was asked if she had a bowel movement recently she stated, this morning and it did look like a penis. She continued to stay at the nurses' station and ramble about various things.
[2024-04-26] MEDS: CLONazepam 1 mg Tablet PO ×2 (08:24→20:11)
[2024-04-26] MEDS: nicotine 4 mg lozenge MUCOUS MEM ×3 (08:24→17:19)
--- NOTE | 2024-04-26 08:27 | PC.NURSE ---
Patient refused abilify this morning. She stated, I don't know what you're trying to give me lady, but I'm not taking that. She did agree to take the clonazepam. Patient said, I'm not taking that other one because it makes *whistled and twirled her finger in the air*. Patient appeared to be agitated by this and frowned before walking off.
[2024-04-26] MEDS: acetaminophen 325 mg Tablet 650 MG PO (09:01)
[2024-04-26] MEDS: nicotine 2 mg Gum BUCCAL (10:34)
[2024-04-26] MEDS: ziprasidone hcl 20 mg Capsule PO (10:34)
--- NOTE | 2024-04-26 11:13 | P.NPUPN_ITS ---
Subjective NPU 2 Subjective: Patient presented today continuing the same reports of yesterday that she needed to get discharged in order to go help her significant other. Significant other has identified that he is able to manage himself independently for the time being in hopes that she will get better. She continues to refuse medication but we talked about the need for a long-acting injection she is reporting that she might be willing but this is all related to trying to be discharged. She reports that the medication, Abilify gives her some odd feeling and we discussed needing to find an alternative mood stabilizer/antipsychotic if that is the case. Mental Status Exam 2 MSE Comments: This is a well-nourished, well-developed white female in hospital scrubs with extremely poor hygiene and poor eye contact. No abnormal involuntary motor movements other than agitation as well as some aimless/purposeless walking noted. She was semi-cooperative with exam in mild to moderate distress. Her speech was mostly normal rate and volume with some notable pauses possibly consistent with thought blocking. Her mood was described as better. Her affect was odd and subdued. Thought process was disorganized at times. Thought content: She denied suicidal or homicidal ideation, There were bizarre delusions noted. She denied auditory or visual hallucinations but at times appeared like she was responding to internal stimuli. There was evidence of hyperreligiousity. Attention and concentration were impaired and memory appeared mostly unreliable, but none were formally tested. She is alert and oriented to person, year and month only. Her insight was poor. Her judgment was poor. Her impulse control appeared impaired. Vitals/I&O/Wt Last Vital Signs Temp 97.6 F 04/26/24 06:00 Pulse 88 04/26/24 06:00 Resp 16 04/26/24 06:00 BP 90/56 04/26/24 06:00 Pulse Ox 98 04/26/24 06:00 O2 Del Method Room Air 04/26/24 06:00 04/25/24 04/26/24 04/26/24 22:59 06:59 14:59 Intake Total 480 / 480 Balance 480 / 480 Weight last 48 hrs Weight 71.758 kg Data NPU 04/20/24 19:35 04/20/24 19:35 A&P Assessment and plan (1) Acute psychosis: (2) Psychotic disorder: (3) Substance abuse: Plan This is a 48-year-old white female presenting with psychosis and bizarre behaviors consistent with her last hospitalization 1 year ago currently noncompliant with medication at this time. 1. Continue Abilify 15mg daily. Prn medications including zyprexa and geodon for agitation. Patient will require forced medication and continued hospital stay as she is currently refusing her antipsychotic. We discussed trying to move forward with an antipsychotic that has a long-acting injectable. 2. Encourage individual, group and milieu therapies. 3. Continue every 15 checks for safety. 4. Was able to talk to her significant other. Who was supportive of her being here and having appropriate clarity before discharge. Involuntary Hold Information 2 96 Hour Hold: 96 Hour Involuntary Admission: No Other Hold: Hold End Date: 04/28/24 Attestations NPU 2 Medical Necessity Statement*: Inpatient hospitalization is medically necessary and the clinically appropriate intervention at this time. We will monitor initiate medications while making changes as indicated. The patient's likely length of stay is 7-10 days. Coding Level of Care Code Acute Code for [facility] Diagnoses Acute psychosis F23 Psychotic disorder F29 Substance abuse F19.10
[2024-04-26 13:57] VITALS: BP 120/88; PULSE 119; RESP 20; TEMP 36.4; O2SAT 99
[2024-04-26] MEDS: OLANZapine 5 mg ODT PO (16:07)
--- NOTE | 2024-04-26 17:33 | PC.NURSE ---
Pt approached the nurses station and just began talking, pt stated Pull my front tooth, yes this one pointing at it. This nurse said, then you will have to ask Alesia for your 2 front teeth. Pt stated that I have a purple hippo who was popping my toes, good thing that I like glitter and turquoise, because that will help I hope that he isn't . I feel in my heart that he is . There is something going on in that house. I know it. I'm not safe there. Willian is doing something weird with me, I guess that with mothers blessing. I hope its not to late but it sounds like Satan's at work and Yovany, I love him and Ring osito mcneill on the phone he lost his mom as did. I hope we turn it over and I'll talk to Arnold, I don't know if he is trying to protect me and my kids or hurt us. I've said to much, Oh lord help me. I have a picture and I hope they give me the approval and Hell I don't know what is going on but he . I just need one puff of Cannabis will do med good with the meds. I was completing school that I did with Willian. Oh I have said too much. I just need to go to the bathroom again. That is what I want. I need to get a half a mug of coffee, Like my Dad said. momjuan to with him I feel like he is adn I forgive my there has been alot of weird things happening, the house is strange. I hope the children playing in the ballparks now. I know that I can fix it. Milk and cookies will help with the nerves. I dropped something and there isn't a trash can, so I will hold it. Thank god the metal framer give it to the foster kids. I had a free ride to college but my Dad pulled me outta there. My grandma made me milk shakes with raw eggs in them. Pt is experiencing Flight of Ideas.
[2024-04-26] MEDS: trazodone 50 mg Tablet PO (20:11)
[2024-04-26] MEDS: diphenhydrAMINE 25 mg Capsule PO (20:11)
[2024-04-26] MEDS: ibuprofen 600 mg Tablet PO (20:11)
[2024-04-26 20:26] VITALS: BP 104/64; PULSE 111; RESP 18; TEMP 36.6; O2SAT 99
[2024-04-27 06:00] VITALS: BP 95/68; PULSE 89; RESP 16; TEMP 36.6; O2SAT 99
[2024-04-27] MEDS: ARIPiprazole 10 mg Tablet 15 MG PO (08:34)
[2024-04-27] MEDS: CLONazepam 1 mg Tablet PO ×2 (08:34→21:25)
--- NOTE | 2024-04-27 09:53 | PC.NURSE ---
Patient rambling this morning with flight of ideas. Patient stated, I slept like a baby. I would've done that a long time ago. Willian is driving me around and it scares me. I don't like it. Every time I use antibiotics I get a yeast infection. My sisters all get it. It's PTSD. I guess I'll move in with Willian. She becomes tearful at times for seemingly no reason.
--- NOTE | 2024-04-27 11:15 | P.NPUPN_ITS ---
Subjective NPU 2 Subjective: Patient presented today reporting that she feels like she is doing well. She continued to lobby to discharge to be with her significant other as he has a surgery coming up but we continue to identify the importance of her getting well. After an initial refusal of her medication this morning she did take the Abilify as prescribed. We did discuss the risks, benefits and alternatives of moving towards the long-acting injectable and she understood and agreed to proceed as is documented in this note agreeing to consider taking the medication. She denied any current side effects to her medication. We did discuss the 21-day hold paperwork being filed. Mental Status Exam 2 MSE Comments: This is a well-nourished, well-developed white female in hospital scrubs with extremely poor hygiene and poor eye contact. No abnormal involuntary motor movements other than agitation as well as some aimless/purposeless walking noted. She was semi-cooperative with exam in mild to moderate distress. Her speech was mostly normal rate and volume with some notable pauses possibly consistent with thought blocking. Her mood was described as better. Her affect was odd and subdued. Thought process was disorganized at times. Thought content: She denied suicidal or homicidal ideation, There were bizarre delusions noted. She denied auditory or visual hallucinations but at times appeared like she was responding to internal stimuli. There was evidence of hyperreligiousity. Attention and concentration were impaired and memory appeared mostly unreliable, but none were formally tested. She is alert and oriented to person, year and month only. Her insight was poor. Her judgment was poor. Her impulse control appeared impaired. Vitals/I&O/Wt Last Vital Signs Temp 97.9 F 04/27/24 06:00 Pulse 89 04/27/24 06:00 Resp 16 04/27/24 06:00 BP 95/68 04/27/24 06:00 Pulse Ox 99 04/27/24 06:00 O2 Del Method Room Air 04/26/24 13:57 Weight last 48 hrs Weight 71.758 kg Data NPU 04/20/24 19:35 04/20/24 19:35 A&P Assessment and plan (1) Acute psychosis: (2) Psychotic disorder: (3) Substance abuse: Plan This is a 48-year-old white female presenting with psychosis and bizarre behaviors consistent with her last hospitalization 1 year ago currently noncompliant with medication at this time. 1. Continue Abilify 15mg daily. Prn medications including zyprexa and geodon for agitation. Patient will require forced medication and continued hospital stay as she is currently refusing her antipsychotic. She did start taking her medication again, the Abilify and we discussed trying to move forward with the long-acting injectable. 2. Encourage individual, group and milieu therapies. 3. Continue every 15 checks for safety. 4. Was able to talk to her significant other. Who was supportive of her being here and having appropriate clarity before discharge. 5. The 21-day hold paperwork was filed. Involuntary Hold Information 2 96 Hour Hold: 96 Hour Involuntary Admission: No Other Hold: Hold End Date: 04/28/24 Attestations NPU 2 Medical Necessity Statement*: Inpatient hospitalization is medically necessary and the clinically appropriate intervention at this time. We will monitor initiate medications while making changes as indicated. The patient's likely length of stay is 7-10 days. Coding Level of Care Code Acute Code for [facility] Diagnoses Acute psychosis F23 Psychotic disorder F29 Substance abuse F19.10
[2024-04-27] MEDS: calcium carbonate 500 mg Chew Tablet PO (11:19)
[2024-04-27] MEDS: nicotine 4 mg lozenge MUCOUS MEM (11:19)
[2024-04-27] MEDS: nicotine 2 mg Gum BUCCAL ×2 (13:04→18:22)
[2024-04-27 14:00] VITALS: BP 102/66; PULSE 126; RESP 17; TEMP 36.7; O2SAT 98
[2024-04-27 20:14] VITALS: BP 120/83; PULSE 122; RESP 16; TEMP 36.4; O2SAT 100
[2024-04-27 22:00] VITALS: BP 120/83; PULSE 122; RESP 16; TEMP 36.4; O2SAT 100
[2024-04-28 06:00] VITALS: BP 79/49; PULSE 98; RESP 12; TEMP 36.4; O2SAT 99
[2024-04-28] MEDS: nicotine 2 mg Gum BUCCAL ×4 (06:09→18:17)
[2024-04-28] MEDS: ARIPiprazole 10 mg Tablet 15 MG PO (08:36)
[2024-04-28] MEDS: CLONazepam 1 mg Tablet PO ×2 (08:36→20:48)
[2024-04-28] MEDS: nicotine 4 mg lozenge MUCOUS MEM ×2 (08:36→13:44)
--- NOTE | 2024-04-28 13:36 | W.PM.NPUPNS ---
Subjective NPU Subjective: Patient presented today reporting that she is doing okay. She was able to except that she was not going to be going to her significant other surgery and that I focus along with his is making sure that she is mentally well enough to return home soon. She was able to begin to discuss the possibility of the long-acting injectable as she has been taking oral medication the last few days. Staff reports her reporting some unclear feeling that the medication gives her but she denied any other side effects or concerns. Mental Status Exam MSE Comments: This is a well-nourished, well-developed white female in hospital scrubs with extremely poor hygiene and poor eye contact. No abnormal involuntary motor movements other than agitation as well as some aimless/purposeless walking noted. She was semi-cooperative with exam in mild to moderate distress. Her speech was mostly normal rate and volume with some notable pauses possibly consistent with thought blocking. Her mood was described as better. Her affect was odd and subdued. Thought process was disorganized at times. Thought content: She denied suicidal or homicidal ideation, There were bizarre delusions noted. She denied auditory or visual hallucinations but at times appeared like she was responding to internal stimuli. There was evidence of hyperreligiousity. Attention and concentration were impaired and memory appeared mostly unreliable, but none were formally tested. She is alert and oriented to person, year and month only. Her insight was poor. Her judgment was poor. Her impulse control appeared impaired. Vitals/I&O/Wt Last Vital Signs Temp 97.5 F L 04/28/24 06:00 Pulse 98 04/28/24 06:00 Resp 12 04/28/24 06:00 BP 79/49 04/28/24 06:00 Pulse Ox 99 04/28/24 06:00 O2 Del Method Room Air 04/28/24 06:00 Data NPU 04/20/24 19:35 04/20/24 19:35 A&P Assessment and plan (1) Acute psychosis: (2) Psychotic disorder: (3) Substance abuse: Plan This is a 48-year-old white female presenting with psychosis and bizarre behaviors consistent with her last hospitalization 1 year ago currently noncompliant with medication at this time. 1. Continue Abilify 15mg daily. Prn medications including zyprexa and geodon for agitation. Patient will require forced medication and continued hospital stay as she is currently refusing her antipsychotic. She did start taking her medication again, the Abilify and we discussed trying to move forward with the long-acting injectable. Will continue to monitor for improvement and will initiate long-acting injectable with some sign of progress. 2. Encourage individual, group and milieu therapies. 3. Continue every 15 checks for safety. 4. Was able to talk to her significant other. Who was supportive of her being here and having appropriate clarity before discharge. 5. The 21-day hold paperwork was filed. Involuntary Hold Information 96 Hour Hold: 96 Hour Involuntary Admission: No Other Hold: Hold End Date: 04/28/24 Attestations NPU Medical Necessity Statement*: Inpatient hospitalization is medically necessary and the clinically appropriate intervention at this time. We will monitor initiate medications while making changes as indicated. The patient's likely length of stay is 7-10 days. Coding Level of Care Code Acute Code for [facility] Fwd Diagnoses Acute psychosis F23 Psychotic disorder F29 Substance abuse F19.10
[2024-04-28 14:00] VITALS: BP 95/49; PULSE 110; RESP 16; TEMP 36.6; O2SAT 99
[2024-04-28 19:50] VITALS: BP 118/82; PULSE 105; RESP 18; TEMP 36.6; O2SAT 99
[2024-04-28] MEDS: hyDROXYzine 25 mg Capsule 50 MG PO (20:48)
[2024-04-28] MEDS: trazodone 50 mg Tablet PO (20:51)
[2024-04-29 06:00] VITALS: BP 106/61; PULSE 95; RESP 18; TEMP 37; O2SAT 96
[2024-04-29] MEDS: ARIPiprazole 10 mg Tablet 15 MG PO (08:30)
[2024-04-29] MEDS: CLONazepam 1 mg Tablet PO ×2 (08:30→20:12)
[2024-04-29] MEDS: nicotine 4 mg lozenge MUCOUS MEM (08:32)
[2024-04-29] MEDS: nicotine 2 mg Gum BUCCAL (11:06)
[2024-04-29] MEDS: OLANZapine 5 mg ODT PO ×2 (11:37→20:12)
[2024-04-29] MEDS: nicotine 21 mg Patch 1 PATCH TRANSDERMA (13:02)
[2024-04-29 14:00] VITALS: BP 90/52; PULSE 106; RESP 18; TEMP 37.1; O2SAT 99
[2024-04-29] MEDS: ARIPiprazole Maintena 400 MG IM (15:24)
--- NOTE | 2024-04-29 15:36 | PC.NURSE ---
Administered abilify 400mg IM into patient's right deltoid muscle. Patient tolerated well. Lot: [id number] EXP: MAY 2026
--- NOTE | 2024-04-29 17:57 | W.PM.NPUPNS ---
Subjective NPU Subjective: Patient presented today reporting that she is doing okay. She reports that she was willing to take the long-acting injectable and is hopeful she can go home sooner rather than later. She denied any side effects to the medication. Mental Status Exam MSE Comments: This is a well-nourished, well-developed white female in hospital scrubs with extremely poor hygiene and poor eye contact. No abnormal involuntary motor movements other than agitation as well as some aimless/purposeless walking noted. She was cooperative with exam in mild to moderate distress. Her speech was mostly normal rate and volume with some notable pauses possibly consistent with thought blocking. Her mood was described as better. Her affect was odd and subdued. Thought process was disorganized at times. Thought content: She denied suicidal or homicidal ideation, There were bizarre delusions noted. She denied auditory or visual hallucinations but at times appeared like she was responding to internal stimuli. There was evidence of hyperreligiousity. Attention and concentration were impaired and memory appeared mostly unreliable, but none were formally tested. She is alert and oriented to person, year and month only. Her insight was poor. Her judgment was poor. Her impulse control appeared impaired. Vitals/I&O/Wt Last Vital Signs Temp 98.7 F 04/29/24 14:00 Pulse 106 H 04/29/24 14:00 Resp 18 04/29/24 14:00 BP 90/52 04/29/24 14:00 Pulse Ox 99 04/29/24 14:00 O2 Del Method Room Air 04/29/24 06:00 Data NPU 04/20/24 19:35 04/20/24 19:35 A&P Assessment and plan (1) Acute psychosis: (2) Psychotic disorder: (3) Substance abuse: Plan This is a 48-year-old white female presenting with psychosis and bizarre behaviors consistent with her last hospitalization 1 year ago currently noncompliant with medication at this time. 1. Continue Abilify 15mg daily. Prn medications including zyprexa and geodon for agitation. Patient will require forced medication and continued hospital stay as she is currently refusing her antipsychotic. She did start taking her medication again, the Abilify and we discussed trying to move forward with the long-acting injectable. Will continue to monitor for improvement and will initiate long-acting injectable with some sign of progress. She was given Abilify Maintena 400 mg IM. 2. Encourage individual, group and milieu therapies. 3. Continue every 15 checks for safety. 4. Was able to talk to her significant other. Who was supportive of her being here and having appropriate clarity before discharge. 5. The 21-day hold paperwork was filed. She had her hearing and a 21-day hold was granted Involuntary Hold Information 96 Hour Hold: 96 Hour Involuntary Admission: No Other Hold: Hold End Date: 04/28/24 Attestations NPU Medical Necessity Statement*: Inpatient hospitalization is medically necessary and the clinically appropriate intervention at this time. We will monitor initiate medications while making changes as indicated. The patient's likely length of stay is 7-10 days. Coding Level of Care Code Acute Code for [facility] Fwd Diagnoses Acute psychosis F23 Psychotic disorder F29 Substance abuse F19.10
[2024-04-29] MEDS: simethicone 80 mg Chew PO (20:12)
[2024-04-29] MEDS: trazodone 50 mg Tablet PO (20:12)
[2024-04-29 21:05] VITALS: BP 107/60; PULSE 118; RESP 16; TEMP 36.6; O2SAT 96
[2024-04-30 06:00] VITALS: BP 113/71; PULSE 107; RESP 18; TEMP 36.6; O2SAT 98
[2024-04-30] MEDS: ARIPiprazole 10 mg Tablet 15 MG PO (08:27)
[2024-04-30] MEDS: CLONazepam 1 mg Tablet PO ×2 (08:27→20:23)
[2024-04-30] MEDS: nicotine 4 mg lozenge MUCOUS MEM ×2 (12:55→16:48)
[2024-04-30 14:00] VITALS: BP 115/78; PULSE 103; RESP 18; TEMP 36.7; O2SAT 99
[2024-04-30] MEDS: nicotine 2 mg Gum BUCCAL (18:21)
[2024-04-30] MEDS: trazodone 50 mg Tablet PO (20:23)
[2024-04-30] MEDS: simethicone 80 mg Chew PO (20:23)
[2024-04-30 20:25] VITALS: BP 105/66; PULSE 110; RESP 18; TEMP 36.8; O2SAT 95
--- NOTE | 2024-04-30 21:30 | P.NPUPN_ITS ---
Subjective NPU 2 Subjective: Patient presented today reporting that she is feeling a little better. She discussed feeling protective and desiring to be helpful for her significant other who just had knee replacement surgery on Saturday. She reports that she is tolerating the medication from the long-acting injectable and wants to go home sooner rather than later. We discussed the importance of us identifying when she has shown improvement so that she would be able to be discharged and be a supportive influence. She denied any side effects to the medication. Mental Status Exam 2 MSE Comments: This is a well-nourished, well-developed white female in hospital scrubs with extremely poor hygiene and poor eye contact. No abnormal involuntary motor movements other than agitation as well as some aimless/purposeless walking noted. She was cooperative with exam in mild to moderate distress. Her speech was mostly normal rate and volume with some notable pauses possibly consistent with thought blocking. Her mood was described as better. Her affect was odd and subdued. Thought process was disorganized at times. Thought content: She denied suicidal or homicidal ideation, There were bizarre delusions noted. She denied auditory or visual hallucinations but at times appeared like she was responding to internal stimuli. There was evidence of hyperreligiousity. Attention and concentration were impaired and memory appeared mostly unreliable, but none were formally tested. She is alert and oriented to person, year and month only. Her insight was poor. Her judgment was poor. Her impulse control appeared impaired. Vitals/I&O/Wt Last Vital Signs Temp 98.2 F 04/30/24 20:25 Pulse 110 H 04/30/24 20:25 Resp 18 04/30/24 20:25 BP 105/66 04/30/24 20:25 Pulse Ox 95 04/30/24 20:25 O2 Del Method Room Air 04/30/24 06:00 Data NPU 04/20/24 19:35 04/20/24 19:35 A&P Assessment and plan (1) Acute psychosis: (2) Psychotic disorder: (3) Substance abuse: Plan This is a 48-year-old white female presenting with psychosis and bizarre behaviors consistent with her last hospitalization 1 year ago currently noncompliant with medication at this time. 1. Continue Abilify 15mg daily. Prn medications including zyprexa and geodon for agitation. Patient will require forced medication and continued hospital stay as she is currently refusing her antipsychotic. She did start taking her medication again, the Abilify and we discussed trying to move forward with the long-acting injectable. Will continue to monitor for improvement and will initiate long-acting injectable with some sign of progress. She was given Abilify Maintena 400 mg IM. 2. Encourage individual, group and milieu therapies. 3. Continue every 15 checks for safety. 4. Was able to talk to her significant other. Who was supportive of her being here and having appropriate clarity before discharge. 5. The 21-day hold paperwork was filed. She had her hearing and a 21-day hold was granted Involuntary Hold Information 2 96 Hour Hold: 96 Hour Involuntary Admission: No Other Hold: Hold End Date: 04/28/24 Attestations NPU 2 Medical Necessity Statement*: Inpatient hospitalization is medically necessary and the clinically appropriate intervention at this time. We will monitor initiate medications while making changes as indicated. The patient's likely length of stay is 7-10 days. Coding Level of Care Code Acute Code for [facility] Fwd Diagnoses Acute psychosis F23 Psychotic disorder F29 Substance abuse F19.10
[2024-05-01 06:00] VITALS: BP 110/70; PULSE 96; RESP 17; TEMP 36.8; O2SAT 98
[2024-05-01] MEDS: docusate sodium 100 mg Capsule PO (08:24)
[2024-05-01] MEDS: ARIPiprazole 10 mg Tablet 15 MG PO (08:24)
[2024-05-01] MEDS: nicotine 2 mg Gum BUCCAL ×5 (08:25→21:26)
--- NOTE | 2024-05-01 09:23 | P.NPUPN_ITS ---
Subjective NPU 2 Subjective: Patient presented today reporting that she is doing fine. Reports that this engineering technical writer her anxious we discussed that we were on the same team. He endorsed this to the medication including. We discussed the importance of her allowing us to get her to a place place for stability and not going backwards again because of how challenging it always seems to get her stabilized. She reports that she will not go off her medication again. She denied any side effects of the medication. She is still having some angulus behavior and confusion per staff report and direct observation. Mental Status Exam 2 MSE Comments: This is a well-nourished, well-developed white female in hospital scrubs with extremely poor hygiene and poor eye contact. No abnormal involuntary motor movements other than agitation as well as some aimless/purposeless walking noted. She was cooperative with exam in mild to moderate distress. Her speech was mostly normal rate and volume with some notable pauses possibly consistent with thought blocking. Her mood was described as better. Her affect was odd and subdued. Thought process was disorganized at times. Thought content: She denied suicidal or homicidal ideation, There were bizarre delusions noted. She denied auditory or visual hallucinations but at times appeared like she was responding to internal stimuli. There was evidence of hyperreligiousity. Attention and concentration were impaired and memory appeared mostly unreliable, but none were formally tested. She is alert and oriented to person, year and month only. Her insight was poor. Her judgment was poor. Her impulse control appeared impaired. Vitals/I&O/Wt Last Vital Signs Temp 98.3 F 05/01/24 06:00 Pulse 96 05/01/24 06:00 Resp 17 05/01/24 06:00 BP 110/70 05/01/24 06:00 Pulse Ox 98 05/01/24 06:00 O2 Del Method Room Air 04/30/24 06:00 Data NPU 04/20/24 19:35 04/20/24 19:35 A&P Assessment and plan (1) Acute psychosis: (2) Psychotic disorder: (3) Substance abuse: Plan This is a 48-year-old white female presenting with psychosis and bizarre behaviors consistent with her last hospitalization 1 year ago currently noncompliant with medication at this time. 1. Continue Abilify 15mg daily. Prn medications including zyprexa and geodon for agitation. Patient will require forced medication and continued hospital stay as she is currently refusing her antipsychotic. She did start taking her medication again, the Abilify and we discussed trying to move forward with the long-acting injectable. Will continue to monitor for improvement and will initiate long-acting injectable with some sign of progress. She was given Abilify Maintena 400 mg IM. 2. Encourage individual, group and milieu therapies. 3. Continue every 15 checks for safety. 4. Was able to talk to her significant other. Who was supportive of her being here and having appropriate clarity before discharge. 5. The 21-day hold paperwork was filed. She had her hearing and a 21-day hold was granted Involuntary Hold Information 2 96 Hour Hold: 96 Hour Involuntary Admission: No Other Hold: Hold End Date: 04/28/24 Attestations NPU 2 Medical Necessity Statement*: Inpatient hospitalization is medically necessary and the clinically appropriate intervention at this time. We will monitor initiate medications while making changes as indicated. The patient's likely length of stay is 7-10 days. Coding Level of Care Code Acute Code for [facility] Fwd Diagnoses Acute psychosis F23 Psychotic disorder F29 Substance abuse F19.10
[2024-05-01] MEDS: CLONazepam 1 mg Tablet PO ×2 (09:35→20:51)
--- NOTE | 2024-05-01 09:38 | PC.NURSE ---
Morning assessment Patient verbalized anxiety r/t the passing of her father and of Willian having knee surgery. Patient rates anxiety 5/10. Patient agreeable to take vistaril 50mg PO. Patient made a statement about her roommate, said her roommate is trying to talk to her about the mafia. Patient appears paranoid about this. Patient went on to say that she is going to do whatever is in God's plan. Patient denies AVH, depression, and suicidal ideation.
[2024-05-01 14:00] VITALS: BP 142/100; PULSE 103; RESP 18; TEMP 36.6; O2SAT 98
[2024-05-01] MEDS: trazodone 50 mg Tablet PO (20:51)
[2024-05-01 21:25] VITALS: BP 110/68; PULSE 105; RESP 17; TEMP 36.9; O2SAT 95
[2024-05-02] MEDS: cetylpyridinium Lozenge 1 EACH MUCOUS MEM (02:47)
[2024-05-02] MEDS: nicotine 4 mg lozenge MUCOUS MEM (02:47)
[2024-05-02 06:00] VITALS: BP 116/76; PULSE 92; RESP 18; TEMP 36.4; O2SAT 100
[2024-05-02] MEDS: nicotine 2 mg Gum BUCCAL ×4 (08:04→21:04)
[2024-05-02] MEDS: ARIPiprazole 10 mg Tablet 15 MG PO (09:17)
[2024-05-02] MEDS: benztropine 1 mg Tablet PO (09:17)
[2024-05-02] MEDS: CLONazepam 1 mg Tablet PO ×2 (09:17→21:04)
--- NOTE | 2024-05-02 09:24 | P.NPUPN_ITS ---
Subjective NPU 2 Subjective: Patient presented today reporting that she is doing okay. She reports that her significant other came by and he had had his surgery and he was using a walker. She reports that he did not endorse having any problems but she is hoping that he could have her home soon. She expressed some concern about her stepdaughter or someone helping him bathe but it was unclear what she meant by that. She reports that the medication is going well and she denied any issues, denied any side effects at this time. Mental Status Exam 2 MSE Comments: This is a well-nourished, well-developed white female in hospital scrubs with extremely poor hygiene and poor eye contact. No abnormal involuntary motor movements other than agitation as well as some aimless/purposeless walking noted. She was cooperative with exam in mild to moderate distress. Her speech was mostly normal rate and volume with some notable pauses possibly consistent with thought blocking. Her mood was described as better. Her affect was odd and subdued. Thought process was disorganized at times, but starting to be more organized. Thought content: She denied suicidal or homicidal ideation, There were bizarre delusions noted. She denied auditory or visual hallucinations but at times appeared like she was responding to internal stimuli. There was evidence of hyperreligiousity. Attention and concentration were impaired and memory appeared mostly unreliable, but none were formally tested. She is alert and oriented to person, year and month only. Her insight was poor. Her judgment was poor. Her impulse control appeared impaired. Vitals/I&O/Wt Last Vital Signs Temp 97.5 F L 05/02/24 06:00 Pulse 92 05/02/24 06:00 Resp 18 05/02/24 06:00 BP 116/76 05/02/24 06:00 Pulse Ox 100 05/02/24 06:00 O2 Del Method Room Air 05/01/24 14:00 Data NPU 04/20/24 19:35 04/20/24 19:35 A&P Assessment and plan (1) Acute psychosis: (2) Psychotic disorder: (3) Substance abuse: Plan This is a 48-year-old white female presenting with psychosis and bizarre behaviors consistent with her last hospitalization 1 year ago currently noncompliant with medication at this time. 1. Continue Abilify 15mg daily. Prn medications including zyprexa and geodon for agitation. Patient will require forced medication and continued hospital stay as she is currently refusing her antipsychotic. She did start taking her medication again, the Abilify and we discussed trying to move forward with the long-acting injectable. Will continue to monitor for improvement and will initiate long-acting injectable with some sign of progress. She was given Abilify Maintena 400 mg IM. 2. Encourage individual, group and milieu therapies. 3. Continue every 15 checks for safety. 4. Was able to talk to her significant other. Who was supportive of her being here and having appropriate clarity before discharge. 5. The 21-day hold paperwork was filed. She had her hearing and a 21-day hold was granted Involuntary Hold Information 2 96 Hour Hold: 96 Hour Involuntary Admission: No Other Hold: Hold End Date: 04/28/24 Attestations NPU 2 Medical Necessity Statement*: Inpatient hospitalization is medically necessary and the clinically appropriate intervention at this time. We will monitor initiate medications while making changes as indicated. The patient's likely length of stay is 6-9 days. Coding Level of Care Code Acute Code for [facility] Fwd Diagnoses Acute psychosis F23 Psychotic disorder F29 Substance abuse F19.10
[2024-05-02 14:00] VITALS: BP 115/80; PULSE 110; RESP 17; TEMP 36.8; O2SAT 99
[2024-05-02] MEDS: polyethylene glycol 3350 Pkt 17 gm PO (21:58)
[2024-05-02 22:00] VITALS: BP 115/79; PULSE 118; RESP 18; TEMP 36.9; O2SAT 97
[2024-05-03 06:00] VITALS: BP 115/75; PULSE 104; RESP 17; TEMP 36.8; O2SAT 95
[2024-05-03] MEDS: polyethylene glycol 3350 Pkt 17 gm PO (09:13)
[2024-05-03] MEDS: benztropine 1 mg Tablet PO (09:13)
[2024-05-03] MEDS: docusate sodium 100 mg Capsule PO (09:13)
[2024-05-03] MEDS: nicotine 2 mg Gum BUCCAL ×3 (09:13→17:56)
[2024-05-03] MEDS: ARIPiprazole 10 mg Tablet 15 MG PO (09:14)
[2024-05-03] MEDS: CLONazepam 1 mg Tablet PO ×2 (09:14→20:39)
--- NOTE | 2024-05-03 11:56 | P.NPUPN_ITS ---
Subjective NPU 2 Subjective: Patient presented today reporting that she was feeling much better. She was less driven by desires to ask about going home and continued to have expressions of concern about her significant other who is less than a week status post knee replacement. She reports that being a puppy at home which she wants to help with. We talked about her having about 9 days of oral cross cover left and then she would just have the injection once a month or once every 2 months if we got the Abilify Asimtufii covered. We discussed the likelihood of discharge this week. She denied any side effects to the medication. Mental Status Exam 2 MSE Comments: This is a well-nourished, well-developed white female in hospital scrubs with improving hygiene and improved eye contact. No abnormal involuntary motor movements other than mild psychomotor retardation and less aimless behavior. She was cooperative with exam in mild distress. Her speech was mostly normal rate and volume with no notable pauses. Her mood was described as better. Her affect was less odd and subdued. Thought process was more organized. Thought content: She denied suicidal or homicidal ideation, There were less moments of any delusions noted. She denied auditory or visual hallucinations and did not appear like she was responding to internal stimuli. There was less evidence of hyperreligiousity. Attention and concentration were impaired and memory appeared mostly unreliable, but none were formally tested. She is alert and oriented to person, year and month only. Her insight and judgment are limited but improving. Her impulse control appeared limited. Vitals/I&O/Wt Last Vital Signs Temp 98.2 F 05/03/24 06:00 Pulse 104 H 05/03/24 06:00 Resp 17 05/03/24 06:00 BP 115/75 05/03/24 06:00 Pulse Ox 95 05/03/24 06:00 O2 Del Method Room Air 05/01/24 14:00 Weight last 48 hrs Weight 75.387 kg Data NPU 04/20/24 19:35 04/20/24 19:35 A&P Assessment and plan (1) Acute psychosis: (2) Psychotic disorder: (3) Substance abuse: Plan This is a 48-year-old white female presenting with psychosis and bizarre behaviors consistent with her last hospitalization 1 year ago currently noncompliant with medication at this time. 1. Continue Abilify 15mg daily. Prn medications including zyprexa and geodon for agitation. Patient will require forced medication and continued hospital stay as she is currently refusing her antipsychotic. She did start taking her medication again, the Abilify and we discussed trying to move forward with the long-acting injectable. Will continue to monitor for improvement and will initiate long-acting injectable with some sign of progress. She was given Abilify Maintena 400 mg IM. 9 more days of oral coadministration 2. Encourage individual, group and milieu therapies. 3. Continue every 15 checks for safety. 4. Was able to talk to her significant other. Who was supportive of her being here and having appropriate clarity before discharge. 5. The 21-day hold paperwork was filed. She had her hearing and a 21-day hold was granted Involuntary Hold Information 2 96 Hour Hold: 96 Hour Involuntary Admission: No Other Hold: Hold End Date: 04/28/24 Attestations NPU 2 Medical Necessity Statement*: Inpatient hospitalization is medically necessary and the clinically appropriate intervention at this time. We will monitor initiate medications while making changes as indicated. The patient's likely length of stay is 5-7 days. Coding Level of Care Code Acute Code for [facility] Fwd Diagnoses Acute psychosis F23 Psychotic disorder F29 Substance abuse F19.10
[2024-05-03 14:00] VITALS: BP 96/60; PULSE 107; RESP 17; TEMP 36.7; O2SAT 96
[2024-05-03] MEDS: diphenhydrAMINE 25 mg Capsule PO (20:39)
[2024-05-03] MEDS: trazodone 50 mg Tablet PO (20:39)
[2024-05-03 21:58] VITALS: BP 94/66; PULSE 96; RESP 17; TEMP 37; O2SAT 97
[2024-05-04 05:26] VITALS: BP 106/63; PULSE 92; RESP 17; O2SAT 97
[2024-05-04] MEDS: ARIPiprazole 10 mg Tablet 15 MG PO (07:48)
[2024-05-04] MEDS: CLONazepam 1 mg Tablet PO ×2 (07:48→20:15)
[2024-05-04] MEDS: nicotine 21 mg Patch 1 PATCH TRANSDERMA (07:48)
[2024-05-04] MEDS: ibuprofen 600 mg Tablet PO ×2 (13:04→20:14)
[2024-05-04 14:00] VITALS: BP 135/98; PULSE 113; RESP 16; TEMP 36.8; O2SAT 99
[2024-05-04] MEDS: simethicone 80 mg Chew PO (15:02)
--- NOTE | 2024-05-04 16:06 | W.PM.NPUPNS ---
Subjective NPU Subjective: Patient presents today reporting that her life is going okay as she finds herself trying to be supportive of her friend/partner. She endorses a desire to go home but also acknowledges that she wants to be well and not have to come back. She reports that she will take her medications as prescribed and will not do anything to jeopardize being at home. We discussed the fact that she has shown some improvement but wanting to see her a little more stable before she is discharged. She denied any side effects to the medication. Mental Status Exam MSE Comments: This is a well-nourished, well-developed white female in hospital scrubs with improving hygiene and improved eye contact. No abnormal involuntary motor movements other than mild psychomotor retardation and less aimless behavior. She was cooperative with exam in mild distress. Her speech was mostly normal rate and volume with no notable pauses. Her mood was described as better. Her affect was less odd and subdued. Thought process was more organized. Thought content: She denied suicidal or homicidal ideation, There were less moments of any delusions noted. She denied auditory or visual hallucinations and did not appear like she was responding to internal stimuli. There was less evidence of hyperreligiousity. Attention and concentration were impaired and memory appeared mostly unreliable, but none were formally tested. She is alert and oriented to person, year and month only. Her insight and judgment are limited but improving. Her impulse control appeared limited. Vitals/I&O/Wt Last Vital Signs Temp 98.3 F 05/04/24 14:00 Pulse 113 H 05/04/24 14:00 Resp 16 05/04/24 14:00 BP 135/98 05/04/24 14:00 Pulse Ox 99 05/04/24 14:00 O2 Del Method Room Air 05/04/24 14:00 Weight last 48 hrs Weight 75.387 kg Data NPU 04/20/24 19:35 04/20/24 19:35 A&P Assessment and plan (1) Acute psychosis: (2) Psychotic disorder: (3) Substance abuse: Plan This is a 48-year-old white female presenting with psychosis and bizarre behaviors consistent with her last hospitalization 1 year ago currently noncompliant with medication at this time. 1. Continue Abilify 15mg daily. Prn medications including zyprexa and geodon for agitation. Patient will require forced medication and continued hospital stay as she is currently refusing her antipsychotic. She did start taking her medication again, the Abilify and we discussed trying to move forward with the long-acting injectable. Will continue to monitor for improvement and will initiate long-acting injectable with some sign of progress. She was given Abilify Maintena 400 mg IM. 8 more days of oral coadministration 2. Encourage individual, group and milieu therapies. 3. Continue every 15 checks for safety. 4. Was able to talk to her significant other. Who was supportive of her being here and having appropriate clarity before discharge. 5. The 21-day hold paperwork was filed. She had her hearing and a 21-day hold was granted Involuntary Hold Information 96 Hour Hold: 96 Hour Involuntary Admission: No Other Hold: Hold End Date: 04/28/24 Attestations NPU Medical Necessity Statement*: Inpatient hospitalization is medically necessary and the clinically appropriate intervention at this time. We will monitor initiate medications while making changes as indicated. The patient's likely length of stay is 5-7 days. Coding Level of Care Code Acute Code for [facility] Fwd Diagnoses Acute psychosis F23 Psychotic disorder F29 Substance abuse F19.10
[2024-05-04] MEDS: nicotine 2 mg Gum BUCCAL (18:08)
[2024-05-04] MEDS: trazodone 50 mg Tablet PO (20:15)
--- NOTE | 2024-05-04 20:51 | PC.NURSE ---
this nurse tech documented under Jil Hanson for 1900 rounding. charge nurse and housekeeper head notified.
[2024-05-04 22:00] VITALS: BP 128/63; PULSE 117; RESP 18; TEMP 36.8; O2SAT 96
[2024-05-05 06:00] VITALS: BP 134/96; PULSE 93; RESP 17; O2SAT 99
[2024-05-05] MEDS: nicotine 2 mg Gum BUCCAL ×3 (06:30→16:29)
[2024-05-05] MEDS: ARIPiprazole 10 mg Tablet 15 MG PO (08:46)
[2024-05-05] MEDS: CLONazepam 1 mg Tablet PO ×2 (08:46→19:41)
[2024-05-05] MEDS: simethicone 80 mg Chew PO (08:49)
[2024-05-05 14:00] VITALS: BP 128/74; PULSE 74; RESP 16; TEMP 36.9; O2SAT 98
--- NOTE | 2024-05-05 15:13 | P.NPUPN_ITS ---
Subjective NPU 2 Subjective: Patient presented today reporting that she is doing okay. She reports that she is still missing Willian but trying to follow the programming for here. We discussed her having 7 more days of oral medication and that her next injection would be in about 3 weeks. Staff report her seeming less confused and more coherent. She is also noted in direct observation. She denied any side effects of medication and reports that she looks forward to going home sooner rather than later. Mental Status Exam 2 MSE Comments: This is a well-nourished, well-developed white female in hospital scrubs with improving hygiene and improved eye contact. No abnormal involuntary motor movements other than mild psychomotor retardation and less aimless behavior. She was cooperative with exam in mild distress. Her speech was mostly normal rate and volume with no notable pauses. Her mood was described as better. Her affect was less odd and subdued. Thought process was more organized. Thought content: She denied suicidal or homicidal ideation, There were less moments of any delusions noted. She denied auditory or visual hallucinations and did not appear like she was responding to internal stimuli. There was less evidence of hyperreligiousity. Attention and concentration were impaired and memory appeared mostly unreliable, but none were formally tested. She is alert and oriented to person, year and month only. Her insight and judgment are limited but improving. Her impulse control appeared limited. Vitals/I&O/Wt Last Vital Signs Temp 98.2 F 05/04/24 22:00 Pulse 93 05/05/24 06:00 Resp 17 05/05/24 06:00 BP 134/96 05/05/24 06:00 Pulse Ox 99 05/05/24 06:00 O2 Del Method Room Air 05/05/24 06:00 Data NPU 04/20/24 19:35 04/20/24 19:35 A&P Assessment and plan (1) Acute psychosis: (2) Psychotic disorder: (3) Substance abuse: Plan This is a 48-year-old white female presenting with psychosis and bizarre behaviors consistent with her last hospitalization 1 year ago currently noncompliant with medication at this time. 1. Continue Abilify 15mg daily. Prn medications including zyprexa and geodon for agitation. Patient will require forced medication and continued hospital stay as she is currently refusing her antipsychotic. She did start taking her medication again, the Abilify and we discussed trying to move forward with the long-acting injectable. Will continue to monitor for improvement and will initiate long-acting injectable with some sign of progress. She was given Abilify Maintena 400 mg IM. 7 more days of oral coadministration 2. Encourage individual, group and milieu therapies. 3. Continue every 15 checks for safety. 4. Was able to talk to her significant other. Who was supportive of her being here and having appropriate clarity before discharge. 5. The 21-day hold paperwork was filed. She had her hearing and a 21-day hold was granted Involuntary Hold Information 2 96 Hour Hold: 96 Hour Involuntary Admission: No Other Hold: Hold End Date: 05/05/24 Attestations NPU 2 Medical Necessity Statement*: Inpatient hospitalization is medically necessary and the clinically appropriate intervention at this time. We will monitor initiate medications while making changes as indicated. The patient's likely length of stay is 4-6 days. Coding Level of Care Code Acute Code for [facility] Fwd Diagnoses Acute psychosis F23 Psychotic disorder F29 Substance abuse F19.10
[2024-05-05] MEDS: trazodone 50 mg Tablet PO (19:40)
[2024-05-05] MEDS: nicotine 4 mg lozenge MUCOUS MEM (19:40)
[2024-05-05] MEDS: ibuprofen 600 mg Tablet PO (19:40)
[2024-05-05 19:42] VITALS: BP 105/64; PULSE 101; RESP 16; TEMP 37; O2SAT 98
[2024-05-06 06:00] VITALS: BP 93/67; PULSE 89; RESP 16; TEMP 36.7; O2SAT 97
[2024-05-06] MEDS: nicotine 4 mg lozenge MUCOUS MEM ×2 (06:27→18:37)
[2024-05-06] MEDS: CLONazepam 1 mg Tablet PO ×2 (08:23→20:04)
[2024-05-06] MEDS: ARIPiprazole 10 mg Tablet 15 MG PO (08:23)
--- NOTE | 2024-05-06 09:03 | P.NPUPN_ITS ---
Subjective NPU 2 Subjective: Patient presented today reporting that she is feeling fairly good and feeling better. She continues to have some slight residual challenges but is seeming to get back to a more solid foundation. We discussed the risks, benefits and alternatives of discharging her on Saturday or Saturday and she understood and agreed to proceed as is documented in this note. She denied any side effects to the medication. Mental Status Exam 2 MSE Comments: This is a well-nourished, well-developed white female in hospital scrubs with improving hygiene and improved eye contact. No abnormal involuntary motor movements other than mild psychomotor retardation and less aimless behavior. She was cooperative with exam in mild distress. Her speech was mostly normal rate and volume with no notable pauses. Her mood was described as better. Her affect was less odd and subdued. Thought process was more organized. Thought content: She denied suicidal or homicidal ideation, There were less moments of any delusions noted. She denied auditory or visual hallucinations and did not appear like she was responding to internal stimuli. There was less evidence of hyperreligiousity. Attention and concentration were impaired and memory appeared mostly unreliable, but none were formally tested. She is alert and oriented to person, year and month only. Her insight and judgment are limited but improving. Her impulse control appeared limited. Vitals/I&O/Wt Last Vital Signs Temp 98.1 F 05/06/24 06:00 Pulse 89 05/06/24 06:00 Resp 16 05/06/24 06:00 BP 93/67 05/06/24 06:00 Pulse Ox 97 05/06/24 06:00 O2 Del Method Room Air 05/06/24 06:00 Data NPU 04/20/24 19:35 04/20/24 19:35 A&P Assessment and plan (1) Acute psychosis: (2) Psychotic disorder: (3) Substance abuse: Plan This is a 48-year-old white female presenting with psychosis and bizarre behaviors consistent with her last hospitalization 1 year ago currently noncompliant with medication at this time. 1. Continue Abilify 15mg daily. Prn medications including zyprexa and geodon for agitation. Patient will require forced medication and continued hospital stay as she is currently refusing her antipsychotic. She did start taking her medication again, the Abilify and we discussed trying to move forward with the long-acting injectable. Will continue to monitor for improvement and will initiate long-acting injectable with some sign of progress. She was given Abilify Maintena 400 mg IM. 6 more days of oral coadministration 2. Encourage individual, group and milieu therapies. 3. Continue every 15 checks for safety. 4. Was able to talk to her significant other. Who was supportive of her being here and having appropriate clarity before discharge. Plan for discharge Saturday or Saturday. 5. The 21-day hold paperwork was filed. She had her hearing and a 21-day hold was granted. Involuntary Hold Information 2 96 Hour Hold: 96 Hour Involuntary Admission: No Other Hold: Hold End Date: 05/05/24 Attestations NPU 2 Medical Necessity Statement*: Inpatient hospitalization is medically necessary and the clinically appropriate intervention at this time. We will monitor initiate medications while making changes as indicated. The patient's likely length of stay is 2-3 days. Coding Level of Care Code Acute Code for [facility] Fwd Diagnoses Acute psychosis F23 Psychotic disorder F29 Substance abuse F19.10
[2024-05-06] MEDS: nicotine 2 mg Gum BUCCAL ×2 (10:44→16:26)
[2024-05-06 14:00] VITALS: BP 119/84; PULSE 109; RESP 16; TEMP 36.6; O2SAT 96
[2024-05-06] MEDS: ibuprofen 600 mg Tablet PO (20:03)
[2024-05-06] MEDS: trazodone 50 mg Tablet PO (20:04)
[2024-05-06 22:00] VITALS: BP 114/76; PULSE 96; RESP 17; O2SAT 95
[2024-05-07 06:00] VITALS: BP 128/93; PULSE 95; RESP 17; TEMP 37.4; O2SAT 95
[2024-05-07] MEDS: CLONazepam 1 mg Tablet PO ×2 (08:33→20:33)
[2024-05-07] MEDS: ARIPiprazole 10 mg Tablet 15 MG PO (08:33)
[2024-05-07] MEDS: nicotine 2 mg Gum BUCCAL ×4 (11:12→18:42)
[2024-05-07 14:00] VITALS: BP 111/76; PULSE 90; RESP 16; TEMP 36.8; O2SAT 96
--- NOTE | 2024-05-07 14:46 | W.PM.NPUPNS ---
Subjective NPU Subjective: Patient presented today reporting that she is so excited about the acknowledgment of her discharge tomorrow. She reports that she is happy with the medications and that she will take the medication when she goes home. She denied any side effects to the medication. Mental Status Exam MSE Comments: This is a well-nourished, well-developed white female in hospital scrubs with improving hygiene and improved eye contact. No abnormal involuntary motor movements other than mild psychomotor retardation. She was cooperative with exam in mild distress. Her speech was mostly normal rate and volume with no notable pauses. Her mood was described as better. Her affect was less odd and subdued. Thought process was more organized. Thought content: She denied suicidal or homicidal ideation, There were less moments of any delusions noted. She denied auditory or visual hallucinations and did not appear like she was responding to internal stimuli. There was less evidence of hyperreligiousity. Attention and concentration were impaired and memory appeared mostly unreliable, but none were formally tested. She is alert and oriented to person, year and month only. Her insight and judgment are limited but improving. Her impulse control appeared limited. Vitals/I&O/Wt Last Vital Signs Temp 98.3 F 05/07/24 14:00 Pulse 90 05/07/24 14:00 Resp 16 05/07/24 14:00 BP 111/76 05/07/24 14:00 Pulse Ox 96 05/07/24 14:00 O2 Del Method Room Air 05/07/24 14:00 Data NPU 04/20/24 19:35 04/20/24 19:35 A&P Assessment and plan (1) Acute psychosis: (2) Psychotic disorder: (3) Substance abuse: Plan This is a 48-year-old white female presenting with psychosis and bizarre behaviors consistent with her last hospitalization 1 year ago currently noncompliant with medication at this time. 1. Continue Abilify 15mg daily. Prn medications including zyprexa and geodon for agitation. Patient will require forced medication and continued hospital stay as she is currently refusing her antipsychotic. She did start taking her medication again, the Abilify and we discussed trying to move forward with the long-acting injectable. Will continue to monitor for improvement and will initiate long-acting injectable with some sign of progress. She was given Abilify Maintena 400 mg IM. 5 more days of oral coadministration 2. Encourage individual, group and milieu therapies. 3. Continue every 15 checks for safety. 4. Was able to talk to her significant other. Who was supportive of her being here and having appropriate clarity before discharge. Plan for discharge tomorrow 05/08/2024 5. The 21-day hold paperwork was filed. She had her hearing and a 21-day hold was granted. Involuntary Hold Information 96 Hour Hold: 96 Hour Involuntary Admission: No Other Hold: Hold End Date: 05/20/24 Attestations NPU Medical Necessity Statement*: Inpatient hospitalization is medically necessary and the clinically appropriate intervention at this time. We will monitor initiate medications while making changes as indicated. The patient's likely length of stay is 1 day. Coding Level of Care Code Acute Code for [facility] Fwd Diagnoses Acute psychosis F23 Psychotic disorder F29 Substance abuse F19.10
[2024-05-07] MEDS: trazodone 50 mg Tablet PO (20:33)
[2024-05-07 22:00] VITALS: BP 122/81; PULSE 105; RESP 17; TEMP 36.6; O2SAT 96
[2024-05-08 06:00] VITALS: BP 126/83; PULSE 93; RESP 17; TEMP 37.1; O2SAT 96
[2024-05-08] MEDS: CLONazepam 1 mg Tablet PO (08:46)
[2024-05-08] MEDS: ARIPiprazole 10 mg Tablet 15 MG PO (08:46)
[2024-05-08] MEDS: nicotine 2 mg Gum BUCCAL (08:48)
--- NOTE | 2024-05-08 09:02 | P.NPUDS_ITS ---
Diagnoses at Discharge Discharge Diagnosis (1) Acute psychosis: Status: Acute (2) Psychotic disorder: Status: Acute (3) Substance abuse: Status: Resolved Reason for Visit Reason for Visit: delusional, combative Brief History: History of Present Illness Marialuisa José is a 47 year old female who presented to the emergency department with the following report: Chief Complaint: Altered Mental Status Stated Complaint: AMS; HALLUCINATIONS Time Seen by Provider: 03/30/23 12:10 History of Present Illness: 47-year-old female presents emergency de partment via [facility]. Patient was found having strange and bizarre behavior in a public area. She appeared to be talking to people that were not present. She is very hyperactive and has flight of ideas and pressured speech. I did review the patient's previous medical records as she is a poor historian, it does appear that she has been admitted to this hospital several times for acute psychosis. She is moderately difficult to redirect and does not appear to be able to maintain a consistent thought. She denies pain. She was admitted to the neuropsychiatric unit for definitive treatment of those issues. She presented today much as she had in her previous hospitalization with significant altered mental status, bizarre behaviors and some aimless/purposeless behaviors and responses. She is a very poor historian and cannot be taken at her word. Past hospitalization right with difficulty with urinary retention secondary to antipsychotic medication. Need to determine if she was able to continue improving on low-dose Seroquel without any return what happened in the 4 months she has been gone. Little of what she said made sense as she seemed quite disorganized with random speech. Per her 11/23/2022 [facility] inpatient psychiatric discharge summary: si Brief History: History of Present Illness Marialuisa José is a 46 year old female with no prior history of inpatient treatment who had presented to the emergency department via EMS after the patient had been found wandering the streets accompanied by her dog. Patient had reported that she was on her way to [place] by foot to see her family. The patient was involuntarily hospitalized after an affidavit completed by the p atient's son had stated that the patient had been having thoughts and expressed a belief that the patient's son was possessed by the devil and after the patient's son had stated that the patient was going to kill her ex-. The patient was admitted to the neuropsychiatric unit for further treatment and evaluation. The patient reports that she has been having increased problems with her thoughts beginning approximately 4 weeks ago as she stated that she felt like something clicked in her head where she started feeling different. The patient had expressed that she is not depressed and does not have thoughts of hurting herself or anyone else. She states that she had been stressed by having her demented father move into her home and had expressed that she was unable to manage his care and that she had been extremely stressed. She had reported having had a feeling in her mind that her son may have been engaged in unholy acts towards her. She had acknowledged that she had often called her ex- Kiesha but stated that she was merely joking. She did state that she had been increasingly suspicious about others but states that she is feeling better and here. She had denied any auditory or visual hallucinations. She had reported having some problems with concentration and states that she had not been taking care of herself very well. When asked about why she had to walk her dog on the highway, the patient was unable to provide a reasonable answer. She did acknowledge that her son had moved outside of the house despite living there as he had also grown tired of the patient's behavior. She had denied any ideas of reference and did not endorse feeling unsafe while on the inpatient unit. The patient was positive for marijuana on urine testing in the emergency dep artment. She had expressed that she had not used marijuana but states that she may have been exposed to it. Past psychiatric history: None reported Allergies: Penicillin, sulfa drugs Medical history: None Surgical history: History of right shoulder repair, history of tonsillectomy Current medications: None Drug and alcohol history: She reported a past history of alcohol use but states that she is not a routine drinker with no history of alcohol withdrawal symptoms. She denied any other drug use at this time. Family psychiatric history: Alcoholism in the father. history: None Social history: The patient lives in [place]. She had been 1 time before in the past. She states that she was born in [facility] and that she had lost her mother when she was only 11 years old. She states that she had been forced to live in a foster home as her father had not been able to take care of her. 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 She had reported no history of trauma. She reported having a recent deep URI for driving under the influence of alcohol. She states having only 1 son who currently lives in the house. Hospital Course Hospital Course She very slowly acclimated to the individual, group and milieu therapies provided. She presented once again with significant psychosis. She once again had discontinued her medication and psychosis resulted. She had previous his tory of difficulty with Abilify which was not noted this time. Previously she had urinary retention. But ultimately she was placed on Abilify 15 mg daily and switched over to Abilify Maintena. When she left she was given 7 days of oral Abilify to complete the oral cross cover. She was also on Xanax when she came in and was switched over to Klonopin. Klonopin had been increased to 1 mg p.o. twice daily. At the time of discharge it was decreased to 0.5 mg p.o. 3 times daily as needed and she was advised to slowly decrease it as tolerated. We spent much time during this hospitalization trying to stress to her and her significant other that she has to stay on the medication because of how difficult it is to resolve her psychosis. At the time of discharge she still had some residual symptoms. She had significant improvement during her stay. She worked with the social work team for appropriate aftercare planning. She was able to contract for safety outside of the hospital prior to discharge. During the hospitalization, patient had routine laboratory studies which were within normal limits except for few outliers. Additionally there was a general medical evaluation which was also within normal limits and revealed no new acute processes. Discharge Summary: At the time of discharge, lethality was denied and psychosis was resolving. Mood and anxiety were well managed. Patient endorsed a plan to avoid all drugs of abuse and follow-up with the aftercare recommendations of the treatment team. Patient was evaluated and deemed to be absent credible lethality, and had a chieved the maximum benefit from an inpatient hospitalization, so was discharged. Involuntary Hold Information 96 Hour Hold: 96 Hour Involuntary Admission: No Other Hold: Hold End Date: 05/20/24 Mental Status Exam MSE Comments: This is a well-nourished, well-developed white female in hospital scrubs with improving hygiene and improved eye contact. No abnormal involuntary motor movements other than mild psychomotor retardation. She was cooperative with exam in mild distress. Her speech was mostly normal rate and volume with no notable pauses. Her mood was described as better. Her affect was less odd and less subdued. Thought process was more organized. Thought content: She denied suicidal or homicidal ideation, There were no delusions reported or noted. She denied auditory or visual hallucinations and did not appear like she was responding to internal stimuli. Attention and concentration were improving and memory appeared more reliable, but none were formally tested. She is alert and oriented x 3. Her insight and judgment are limited but improving. Her impulse control appeared limited. Discharge Data Studies Completed and Pending: Laboratory Results WBC 12.87 10^3/uL (3. 29-11.43) H 04/20/24 19:35 RBC 4.86 10^6/uL (3.8 5-5.65) 04/20/24 19:35 Hgb 14.20 g/dL (11.27 -16.99) 04/20/24 19:35 Hct 41.8 % (36-47) 04/20/24 19:35 MCV 86.0 fl (85-98) 04/20/24 19:35 MCH 29.2 pg (27-33) 04/20/24 19:35 MCHC 34.0 g/dL (30-55) 04/20/24 19:35 RDW 12.1 % (12.1-15.1 ) 04/20/24 19:35 Plt Count 258 10^3/cmm (157 -399) 04/20/24 19:35 MPV 10.4 fL (7.4-10.4 ) 04/20/24 19:35 Neut % (Auto) 73.4 % 04/20/24 19:35 Lymph % (Auto) 18.4 % 04/20/24 19:35 Carver % (Auto) 6.9 % 04/20/24 19:35 Eos % (Auto) 0.5 % 04/20/24 19:35 Baso % (Auto) 0.4 % 04/20/24 19:35 Neut # (Auto) 9.45 10^3/uL (1.8 -7.7) H 04/20/24 19:35 Lymph # (Auto) 2.4 10^3/uL (0.8- 4.8) 04/20/24 19:35 Carver # (Auto) 0.9 10^3/uL (0.2- 0.9) 04/20/24 19:35 Eos # (Auto) 0.1 10^3/uL (0.0- 0.8) 04/20/24 19:35 Baso # (Auto) 0.1 10^3/uL (0.0- 0.1) 04/20/24 19:35 Nucleated RBC % (a uto) 0 % 04/20/24 19:35 Nucleated RBCs # 0.0 /100WBC 04/20/24 19:35 Sodium 139 mmol/L (136-1 45) 04/20/24 19:35 Potassium 4.3 mmol/L (3.5-5 .1) 04/20/24 19:35 Chloride 105 mmol/L (98-10 7) 04/20/24 19:35 Carbon Dioxide 24 mmol/L (22-29) 04/20/24 19:35 Anion Gap 14.3 (5-19) 04/20/24 19:35 BUN 10 mg/dL (6-20) 04/20/24 19:35 Creatinine 0.8 mg/dL (0.5-0. 9) 04/20/24 19:35 GFR Calculation 77.2 mL/min (90-1 30) L 04/20/24 19:35 Glucose 116 mg/dL (65-115 ) H 04/20/24 19:35 Calculated Osmolal ity 288 mOsm/kg (285- 295) 04/20/24 19:35 Calcium 9.7 mg/dL (8.5-10 .5) 04/20/24 19:35 Total Bilirubin 0.2 mg/dL (0.15-1 .2) 04/20/24 19:35 AST 22 U/L (0-32) 04/20/24 19:35 ALT 22 U/L (0-33) 04/20/24 19:35 Alkaline Phosphata se 97 U/L (35-105) 04/20/24 19:35 Total Protein 7.6 g/dL (6.6-8.7 ) 04/20/24 19:35 Albumin 4.3 g/dL (3.5-5.2 ) 04/20/24 19:35 Globulin 3.3 g/dL (1.3-4.6 ) 04/20/24 19:35 TSH 1.22 uIU/mL (0.27 -4.20) 04/20/24 19:35 HCG, Qual Negative (Negati ve) 04/20/24 19:01 Urine Color Yellow (Yellow) 04/20/24 19: Urine Appearance Clear (CLEAR) 04/20/24 19: Urine pH 6.5 (5-7) 04/20/24 19: Ur Specific Gravit y 1.007 (1.005-1.0 30) 04/20/24 19: Urine Protein Negative (Negati ve) 04/20/24 19: Urine Glucose (UA) Negative (Normal ) 04/20/24 19: Urine Ketones Negative (Negati ve) 04/20/24 19: Urine Blood 1+ (Negative) A 04/20/24 19: Urine Nitrate Negative (Negati ve) 04/20/24 19: Urine Bilirubin Negative (Negati ve) 04/20/24 19: Urine Urobilinogen 0.2 mg/dL (Negati ve) 04/20/24 19:01 Ur Leukocyte Twila ase Negative (Negati ve) 04/20/24 19:01 Urine RBC 3-5 /hpf (0-2) 04/20/24 19:01 Urine WBC 0-5 /hpf (0-5) 04/20/24 19:01 Ur Squamous Epith Cells 0-5 /hpf (0-5) 04/20/24 19: Amorphous Sediment Not Reportable 04/20/24 19: Urine Bacteria None seen /hpf (N ONE) 04/20/24 19: Hyaline Casts 1.65 /lpf 04/20/24 19:01 Salicylates < 0.3 mg/dL (3-10 ) L 04/20/24 19:35 Urine Opiates Scre en Negative ng/mL (N egative) 04/20/24 19: Acetaminophen < 5.0 ug/mL (10-3 0) L 04/20/24 19:35 Ur Barbiturates Sc reen Negative ng/mL (N egative) 04/20/24 19: Ur Phencyclidine S crn Negative ng/mL (N egative) 04/20/24 19:01 Ur Amphetamines Sc reen Negative ng/mL (N egative) 04/20/24 19:01 U Benzodiazepines Scrn Positive ng/mL (N egative) H 04/20/24 19:01 Urine Cocaine Scre en Negative ng/mL (N egative) 04/20/24 19:01 U Marijuana (THC) Screen Positive ng/mL (N egative) H 04/20/24 19:01 Ethyl Alcohol < 10 mg/dL (0-10) 04/20/24 19:35 Vitals: Last Vital Signs Temp 98.7 F 05/08/24 06:00 Pulse 93 05/08/24 06:00 Resp 17 05/08/24 06:00 BP 126/83 05/08/24 06:00 Pulse Ox 96 05/08/24 06:00 O2 Del Method Room Air 05/08/24 06:00 Discharge Plan Discharge Patient Disposition: Home Condition: Stable Prescriptions: New aripiprazole 15 mg tablet 15 mg PO DAILY 7 Days Qty: 7 0RF Rx Instructions: Take for 7 days then discontinue patient is on Abilify at Maintena benztropine 1 mg Tablet 1 mg PO BID PRN (Reason: Mild Extrapyramidal symptoms) 30 Days Qty: 60 1RF clonazepam 0.5 mg tablet 0.5 mg PO TID PRN (Reason: Anxiety) 30 Days Qty: 90 1RF trazodone 50 mg Tablet 50 mg PO BEDTIME PRN (Reason: Sleep) 30 Days Qty: 30 1RF Abilify Maintena 400 mg suspension,extended rel recon 400 mg IM Q28D Qty: 1 2RF Rx Instructions: Next injection due 05/27/2024. Then as directed. Abilify Asimtufii 960 mg/3.2 mL suspension,extended rel syring 960 mg IM ONCE 56 Days Qty: 3.2 1RF Rx Instructions: Next injection due 05/27/2024. Then as directed Discontinued alprazolam 0.25 mg Tablet 0.25 mg PO BID Vraylar 1.5 mg capsule 1.5 mg PO DAILY Discharge Orders: Discharge Order (Routine); Ordered 05/08/24 Ordered By: Kaleb Chen Referrals: [facility] [Other] - 05/13/24 7:30 am (Assessment Tiffanie Miller [Referring] - Discharge Diet: Regular Discharge Activity: Resume usual activity Patient Instructions: Opioid Safety Discharge Attestations NPU Time Spent in Discharge Care*: less than 30 min Specific Discharge Activities: Specific discharge activities: educating patient, discussing with gearcase assembler/social workers/dc planners, documenting/other paperwork and evaluating patient/reviewing data Coding Level of Care Code Acute Code for [facility] Fwd Diagnoses Acute psychosis F23 Psychotic disorder F29 Substance abuse F19.10
[2024-05-08 10:45] VITALS: BP 126/83; PULSE 93; RESP 15; TEMP 37.1; O2SAT 97
== END 2024-05-08 10:45 | disposition home or self-care (01) | DRG 885 ==
LOC: ER 20:32 → NP 20:51
PROVIDERS: Admitting Provider Psychiatry & Neurology Psychiatry; Emergency Provider Emergency Medicine; Visit Provider Psychiatry & Neurology Psychiatry
DX: F23 Brief psychotic disorder (principal); F19.10 Other psychoactive substance abuse, uncomplicated; Z91.199 Patient's noncompliance with other medical treatment and regimen due to unspecified reason
CPT/HCPCS: 51701; 80053; 80306; 80307; 81001; 81025; 84443; 85025; 93005; 96372; 97150; 97165; 99285; J1200; J2060; J3486